=== PATIENT | male | born 1975 | race Caucasian/White ===

== ENCOUNTER 2016-07-05 11:41 | Emergency (ER) | payer SELFPAY ==
[~2016-07-05] VITALS: Ht 188 cm; Wt 127.0 kg
[~2016-07-05 11:41] MED LIST: BENZ200C25 PO; CEPH500C PO; DOXY100C2 PO; GBPN400C PO; HYDR1TAB PO; IBUP-15; IBUP800T26 PO; LEVE500T6 PO; LISI20TA PO; MECL25TA56 PO; PROP20TA5 PO; RISP3TAB3 PO; SERT25TA PO; SUMA100T3 PO
--- NOTE | 2016-07-05 12:14 | ED EENT ---
History of Present Illness General Chief Complaint: Eye Problems Stated Complaint: RIGHT EYE SWOLLEN Source: patient Exam Limitations: no limitations History of Present Illness Time seen by provider: 12:09 Initial Comments ER with right eye swelling and drainage and redness. This began about a week ago with an itchy red eye but no swelling or redness. They tried Visine without improvement. Yesterday morning he awakened with the eye matted shut. Vision is somewhat blurry in the eye. No other symptoms. He does not wear contacts or glasses. Timing/Duration: gradual Severity: moderate Location: eye (R) Associated Symptoms: denies symptoms Allergies and Home Medications Allergies Coded Allergies: NKANo Known Allergies (Unverified Allergy, Mild, 06/27/09) Home Medications Gabapentin 400 Mg Cap, 800 MG PO TID, (Reported) Ibuprofen 800 Mg Tablet, 800 MG PO Q8H PRN for PAIN, #20 Prescribed by: CRIS APONTE on 02/21/13 1848 Levetiracetam 500 Mg Tablet, 1 EACH PO BID, (Reported) Lisinopril 20 Mg Tablet, 20 MG PO, (Reported) Propranolol Hcl 20 Mg Tablet, 40 MG PO, (Reported) Risperidone 3 Mg Tablet, 2 MG PO HS, (Reported) Sertraline Hcl 25 Mg Tablet, 50 MG PO, (Reported) Review of Systems Constitutional: see HPI Eyes: See HPI, Blurred Vision, Drainage Ears: No Symptoms Reported Nose: no symptoms reported Mouth: no symptoms reported Throat: no symptoms reported Respiratory: no symptoms reported Cardiovascular: no symptoms reported Musculoskeletal: no symptoms reported Past Ttqredk-Jhmsei-Geicqs Hx Patient Social History Recent Foreign Travel: No Contact w/Someone Who Travel: No Immunizations Up To Date Tetanus Booster (TDap): Unknown Surgeries HX Surgeries: Yes (R EYE, surgery for facial trauma) Respiratory Hx Respiratory Disorders: No Cardiovascular Hx Cardiac Disorders: Yes Neurological Hx Neurological Disorders: Yes Genitourinary Hx Genitourinary Disorders: No Gastrointestinal Hx Gastrointestinal Disorders: No Musculoskeletal Hx Musculoskeletal Disorders: No Endocrine Hx Endocrine Disorders: No HEENT HX ENT Disorders: No Cancer Hx Cancer: No Psychosocial Hx Psychiatric Problems: Yes Behavioral Health Disorders: Bipolar, Personality Disorder Integumentary HX Skin/Integumentary Disorder: No Family Medical History Significant Family History: Heart Disease, Diabetes, Hypertension Visual Acuity : Eye Location: Right Vision Acuity Degree: 20/30 (right eye vision (the affected eye) better than left eye which is the unaffected eye.) Physical Exam General Appearance: WD/WN, no apparent distress, other (multiple sores all over both arms. Unable to sit still. Conversation is rambling. would have concerns of methamphetamine use.) Eyes: right eye conjunctival inflammation, right eye other (erythema and swelling of the upper and lower eyelids, erythema of the conjunctiva, scleral injection, no hypopyon. Purulent discharge noted.), left eye EOMI, left eye PERRL, left eye normal inspection Ears: bilateral ear TM normal, bilateral ear auricle normal, bilateral ear canal normal Neck: non-tender, full range of motion Respiratory: no respiratory distress, no accessory muscle use Neurologic/Psychiatric: alert, normal mood/affect, oriented x 3 Skin: normal color, warm/dry, other Progress/Results/Core Measures Results/Orders My Orders Orders - RUHS HA APRN Ceftriaxone Injection (Rocephin Injectio (07/05/16 12:15) Lidocaine 1% Injection (Xylocaine 1% Inj (07/05/16 12:15) Departure Impression Impression: Primary Impression: Conjunctivitis Qualified Codes: H10.31 - Unspecified acute conjunctivitis, right eye Disposition: 01 HOME, SELF-CARE Condition: Stable Departure-Patient Inst. Decision time for Depature: 12:11 Referrals: ERIKA ANDREWS MD (PCP/Family) Primary Care Physician TRISTA HONG OD Patient Instructions: Conjunctivitis ([place]) (DC) Add. Discharge Instructions: 1. Call Dr. Hong today to make an appointment to be seen either today or tomorrow for follow-up 2. Antibiotic eyedrops as directed 3. Return to ER for any worsening 4. All discharge instructions reviewed with patient and/or family. Voiced understanding. Scripts Erythromycin Base (Erythromycin Opthalmic Ointment) 1 Gm Oint...g. 0 OP Q6H, #1 TUBE 1/2 inch Q6 hours x5 days Prov: RUSH HA APRN 07/05/16 RUSH HA APRN July 05, 2016 12:14
[2016-07-05] MEDS ORDERED: LIDOCAINE 1% INJ 20 ML (XYLOCAINE) VIAL INJ ONE (12:15)
[2016-07-05] MEDS ORDERED: cefTRIAXone 1 GM (ROCEPHIN) VIAL IM ONE (12:15)
[2016-07-05] MEDS ORDERED: ERYT1OIN6 OP (12:16)
[2016-07-05 12:42] VITALS: BP 150/98
== END 2016-07-05 12:47 | disposition home or self-care (01) ==
LOC: EDUNIT# 11:41 → ER 11:43
DX: H10.31 Unspecified acute conjunctivitis, right eye (principal); Z79.899 Other long term (current) drug therapy
CPT/HCPCS: 96372; 99282

== ENCOUNTER 2018-03-16 12:48 | Emergency (ER) | payer SELFPAY, OTHER | END 2018-03-16 14:01 | disposition home or self-care (01) | LOC: ER 12:48 ==

== ENCOUNTER 2018-05-01 12:24 | Emergency (ER) | payer SELFPAY ==
[~2018-05-01] VITALS: Ht 188 cm; Wt 117.9 kg
[~2018-05-01 12:24] MED LIST changes: +ERYT1OIN6 OP; +ONDA4TAB11 PO
--- OUTSIDE RECORDS SUMMARY | 2018-05-01 12:31 | XMS REPORT ---
Author Author DARRYL ERIKA [facility] Address [address] [place] [address] Care Team Providers Care Bobbin Cleaner Name Role Phone DARRYLGER REYNAGAY Unavailable PROBLEMS Type Condition ICD9-CM Code FZV73-XY Code Onset Dates Condition Status SNOMED Code Problem Bipolar I disorder, most recent episode (or current) depressed F31.30 Active 27590247 Problem Lumbar canal stenosis M48.06 Active 42275057 Problem Benign essential hypertension I10 Active 8172880 Problem Other epilepsy without status epilepticus, not intractable G40.802 Active 871464279 Problem Hereditary and idiopathic peripheral neuropathy G60.9 Active 814992959 Problem Migraine without aura and without status migrainosus, not intractable G43.009 Active 788569984 Problem Raynauds disease without gangrene I73.00 Active 549213247 ALLERGIES No Information ENCOUNTERS Encounter Location Date Diagnosis [facility] [id number] [place] [address]15- 9853 Jan, Other epilepsy without status epilepticus, not intractable G40.802 [facility] [id number] [place] [address] 08766- 2187 Dec, Benign essential hypertension I10 ; Bipolar I disorder, most recent episode (or current) depressed F31.30 ; Other epilepsy without status epilepticus, not intractable G40.802 and Migraine without aura and without status migrainosus, not intractable G43.009 [facility] [id number] [place] [address] 05224- 4452 Aug, [facility] [id number] [place] [address] 03950- 6205 Aug, Benign essential hypertension I10 and Other epilepsy without status epilepticus, not intractable G40.802 [facility] [id number] [place] [address] 39169- 8750 Jul, Other epilepsy without status epilepticus, not intractable G40.802 [facility] [address] 26526- 8636 Mar, Benign essential hypertension I10 and Other epilepsy without status epilepticus, not intractable G40.802 [facility] [address] 92253- 9295 Feb, Benign essential hypertension I10 [facility] [facility] [address] 44115- 4509 Dec, Benign essential hypertension I10 [facility] [facility] [address] 54873- 8766 Sep, Lumbar canal stenosis M48.06 [facility] [address] 73633- 8109 Sep, [facility] [facility] [address] 53890- 2369 Sep, Elevated lymphocytes D72.820 [facility] [address] 73806- 8945 Sep, [place] [address] 57491- 5880 Aug, Bipolar I disorder, most recent episode (or current) depressed F31.30 [facility] [id number] [place] [address] 14374- 3879 Aug, Other epilepsy without status epilepticus, not intractable G40.802 ; Benign essential hypertension I10 ; Bipolar I disorder, most recent episode (or current) depressed F31.30 ; Hereditary and idiopathic peripheral neuropathy G60.9 ; Lumbar canal stenosis M48.06 and Elevated ALT measurement R74.0 [facility] [id number] [place] [address] 73193- 1936 Aug, [facility] [address] 27119- 8387 Aug, [place] [id number] [place] [address] 91677- 2181 May, Benign essential hypertension I10 [facility] [facility] [id number] [place] [address] 26428- 9661 Dec, Nondisplaced fracture of base of fifth metacarpal bone of right hand, initial encounter S62.346A [facility] [address] 17296- 2886 Dec, Numbness of right hand R20.0 ; Right hand pain M79.641 ; Right wrist pain M25.531 and Closed nondisplaced fracture of base of fifth metacarpal bone of right hand, initial encounter S62.346A [facility] [id number] [place] [address] 73175- 4226 Oct, [facility] [address] 46764- 8634 Sep, [facility] [address] 08646- 7313 Jul, Benign essential hypertension I10 ; Hyperlipidemia, unspecified hyperlipidemia type E78.5 and Elevated ALT measurement R74.0 [facility] [id number] [place] [address] 93085- 1574 Jul, Bipolar I disorder, most recent episode (or current) depressed F31.30 [facility] [id number] [place] [address] 41318- 1715 Jul, Benign essential hypertension I10 [facility] [id number] [place] [address] 08104- 0047 Jul, [facility] [address] 03635- 5123 June, Benign essential hypertension I10 ; Bipolar I disorder, most recent episode (or current) depressed F31.30 ; Lumbar canal stenosis M48.06 and Other epilepsy without status epilepticus, not intractable G40.802 [facility] [address] [facility] [id number], [place] [address]- 0370 Feb, [facility] [address] [facility] [id number], [place] [address]- 1931 Feb, [facility] [address] [facility] [id number], [place] [address]- 1454 Nov, [facility] [address] [facility] [id number] [place] [address] 42494- 1950 08 Oct, 2014 [facility] [address] [facility] [id number], [place] [address]- 5880 Oct, [facility] [address] [facility] [id number] [place] [address] 99065- 7282 Oct, [facility] [address], [place] [address]- 7303 Oct, Lumbar radiculopathy 724.4 ; Lumbar spinal stenosis 724.02 and Constipation 564.00 [facility] [address] [address]- 0491 Sep, [facility] [address] [address]- 0545 Sep, [facility] [address], [place] [address]- 6404 Aug, Lumbar radiculopathy 724.4 [facility] [address], [place] [address]- 1903 Aug, [facility] [id number] [address]- 5966 Aug, Hamstring strain 843.8 [facility] [address] [id number] [address]- 8397 Jul, [facility] [address] [address]- 0720 Jul, [facility] [id number] [address]- 3462 14 May, 2014 [facility] [place] [facility] [address] [id number] [place] [address]- 3701 13 May, 2014 [facility] [place] [facility] [address] [id number] [place] [address]- 6522 16 Apr, 2014 [facility] [place] [facility] [address] [id number] [place] [address]- 1960 16 Apr, 2014 [facility] [place] [facility] [address] [id number] [place] [address]- 6178 20 Mar, 2014 [facility] [place] [facility] [address] [id number] [place] [address]- 5949 20 Mar, 2014 [facility] [place] [facility] [address] [facility] [id number] [place] [address]- 0128 19 Mar, 2014 [facility] [place] [facility] [address] [facility] [id number] [place] [address]- 6751 Mar, 2014 [facility] [place] [facility] [address] [facility] [id number] [place] [address]- 7688 17 Mar, 2014 [facility] [place] [facility] [address] [facility] [id number] [place] [address]- 9992 Mar, 2014 [facility] [place] [facility] [address] [facility] [id number] [place] [address]- 9644 Mar, 2014 [facility] [place] [facility] [address] [facility] [id number] [place] [address]- 4126 Mar, 2014 [facility] [place] [facility] [address] [facility] [id number] [place] [address]- 2030 Mar, 2014 [facility] [place] [facility] [address] [facility] [id number] [place] [address]- 2115 Mar, 2014 [facility] [place] [facility] [address] [facility] [id number] [place] [address]- 8486 02 Mar, 2014 [facility] [place] [facility] [address] [facility] [id number], [place] [address]- 9760 Mar, [facility] [place] [facility] [address] [id number] [place] [address]- 0445 Feb, [facility] [place] [facility] [address] [id number] [place] [address]- 5141 Feb, [facility] [place] [facility] [address] [facility] [id number] [place] [address]- 5098 Feb, [facility] [place] [facility] [address] [id number] [place] [address]- 0882 Feb, [facility] [place] [facility] [address] [id number] [place] [address]- 6332 Feb, [facility] [place] [facility] [address] [id number] [place] [address]- 9398 Feb, [facility] [place] [facility] [address] [facility] [id number] [place] [address]- 8848 Jan, [facility] [place] [facility] [address] [id number] [place] [address]- 5957 Jan, [facility] [place] [facility] [address] [facility] [id number] [place] [address]- 8470 Jan, [facility] [place] [facility] [address] [facility] [id number] [place] [address]- 2499 Dec, [facility] [place] [facility] [address] [id number], [place] [address]- 5761 Dec, [facility] [place] [facility] [address] [id number], [place] [address]- 7655 Dec, [facility] [place] [facility] [address] [id number] [place] [address]- 4344 Dec, [facility] [place] [facility] [address] [id number] [place] [address]- 0943 Dec, [facility] [place] [facility] [address] [facility] [id number] [place] [address]- 3947 Dec, [facility] [place] [facility] [address] [id number] [place] [address]- 4898 Dec, [facility] [place] [facility] [address] [id number] [place] [address]- 8138 Dec, [facility] [place] [facility] [address] [id number] [place] [address]- 2512 Dec, [facility] [place] [facility] [address] [id number] [place] [address]- 6235 Dec, [facility] [place] [facility] [address] [id number] [place] [address]- 9816 Dec, [facility] [place] [facility] [address] [id number] [place] [address]- 1299 Dec, [facility] [place] [facility] [address] [id number] [place] [address]- 5391 Nov, [facility] [place] [facility] [address] [id number] [place] [address]- 8981 Nov, [facility] [place] [facility] [address] [id number] [place] [address]- 1838 Nov, [facility] [place] [facility] [address] [id number] [place] [address]- 7410 Nov, [facility] [place] [facility] [address] [id number] [place] [address]- 4922 16 Oct, 2013 [facility] [place] [facility] [address] [id number] [place] [address]- 9656 16 Oct, 2013 [facility] [place] [facility] [address] [id number] [place] [address]- 2547 16 Sep, 2013 [facility] [place] [facility] [address] [id number] [place] [address]- 2546 16 Sep, 2013 [facility] [place] [facility] [address] [id number] [place] [address]- 3980 05 Sep, 2013 [facility] [place] [facility] [address] [id number] [place] [address]- 1865 Oct, [facility] [place] [facility] [address] [id number] [place] [address]- 4387 Sep, [facility] [place] [facility] [address] [id number] [place] [address]- 9928 Sep, [facility] [place] [facility] [address] [id number] [place] [address]- 4768 Jul, [facility] [place] [facility] [address] [id number] [place] [address]- 3035 Jul, [facility] [place] [facility] [address] [id number] [place] [address]- 8525 Jul, [facility] [place] [facility] [address] [id number] [place] [address]- 1216 Jul, [facility] [place] [facility] [address] [id number] [place] [address]- 4887 Jul, [facility] [place] [facility] [address] [id number] [place] [address]- 8298 Jul, [facility] [place] [facility] [address] [id number] [place] [address]- 1878 Jul, [facility] [place] [facility] [address] [id number] [place] [address]- 9299 Jul, [facility] [place] [facility] [address] [id number] [place] [address]- 6185 Jul, [facility] [place] [facility] [address] [id number], [place] [address]- 1579 Jul, [facility] [place] [facility] [address] [id number] [place] [address]- 8013 June, [facility] [place] [facility] [address] [id number] [place] [address]- 4622 June, [facility] [place] [facility] [address] [id number] [place] [address]- 0738 June, [facility] [place] [facility] [address] [id number] [place] [address]- 8970 June, [facility] [address] [id number] [place] [address]- 7261 June, [facility] [place] [facility] [address] [id number] [place] [address]- 4719 June, [facility] [place] [facility] [address] [id number] [place] [address]- 9790 June, [facility] [place] [facility] [address] [id number] [place] [address]- 2994 June, [facility] [place] [facility] [address] [id number] [place] [address]- 7740 June, [facility] [place] [facility] [address] [id number] [place] [address]- 3367 June, [facility] [address] [id number] [place] [address]- 6356 June, [facility] [place] [facility] [address] [id number] [place] [address]- 1898 June, [facility] [place] [facility] [address] [id number] [place] [address]- 4311 June, [facility] [place] [facility] [address] [id number] [place] [address]- 7159 June, [facility] [place] [facility] [address] [id number] [place] [address]- 7552 May, [facility] [place] [facility] [address] [id number] [place] [address]- 1882 May, [facility] [place] [facility] [address] [id number] [place] [address]- 2136 May, [facility] [place] [facility] [address] [id number] [place] [address]- 1568 May, [facility] [place] [facility] [address] [id number] [place] [address]- 4907 May, [facility] [place] [facility] [address] [id number] [place] [address]- 8245 May, [facility] [place] [facility] [address] [id number] [place] [address]- 6971 May, [facility] [place] [facility] [address] [id number] [place] [address]- 7645 May, [facility] [place] [facility] [address] [id number] [place] [address]- 3949 May, [facility] [place] [facility] [address] [id number] [place] [address]- 9845 May, [facility] [place] [facility] [address] [id number] [place] [address]- 3639 May, [facility] [place] [facility] [address] [id number] [place] [address]- 5453 May, [facility] [place] [facility] [address] [id number] [place] [address]- 0362 May, [facility] [place] [facility] [address] [id number] [place] [address]- 6944 May, [facility] [place] [facility] [address] [id number] [place] [address]- 3740 May, [facility] [place] [facility] [address] [id number] [place] [address]- 0886 Apr, [facility] [place] [facility] [address] [id number] [place] [address]- 3336 Apr, [facility] [place] [facility] [address] [id number] [place] [address]- 6074 Apr, [facility] [place] [facility] [address] [id number] [place] [address]- 8134 Apr, [facility] [place] [facility] [address] [id number] [place] [address]- 7401 Apr, [facility] [place] [facility] [address] [id number] [place] [address]- 9426 Apr, [facility] [place] [facility] [address] [id number] [place] [address]- 5462 Apr, [facility] [place] [facility] [address] [id number] [place] [address]- 5450 Apr, [facility] [place] [facility] [address] [id number] [place] [address]- 5051 Apr, [facility] [place] [facility] [address] [id number] [place] [address]- 7826 Apr, [facility] [place] [facility] [address] [id number] [place] [address]- 4426 Apr, [facility] [place] [facility] [address] [id number] [place] [address]- 0733 Apr, [facility] [place] [facility] [address] [id number] [place] [address]- 4732 Apr, [facility] [place] [facility] [address] [id number] [place] [address]- 6265 Apr, [facility] [place] [facility] [address] [id number] [place] [address]- 1716 Apr, [facility] [place] [facility] [address] [id number] [place] [address]- 1217 Apr, [facility] [place] [facility] [address] [id number] [place] [address]- 2811 Apr, [facility] [place] [facility] [address] [id number] [place] [address]- 1556 Apr, [facility] [place] [facility] [address] [id number] [place] [address]- 7942 Mar, [facility] [place] [facility] [address] [id number] [place] [address]- 3413 Mar, [facility] [place] [facility] [address] [id number] [place] [address]- 5044 Mar, [facility] [place] [facility] [address] [id number] [place] [address]- 6869 24 Mar, 2013 [facility] [place] [facility] [address] [id number] [place] [address]- 3072 Mar, [facility] [place] [facility] [address] [id number] [place] [address]- 6746 Mar, [facility] [place] [facility] [address] [id number] [place] [address]- 2584 Mar, [facility] [place] [facility] [address] [id number] [place] [address]- 2425 Mar, [facility] [place] [facility] [address] [id number] [place] [address]- 5254 Mar, [facility] [place] [facility] [address] [id number] [place] [address]- 4562 Mar, [facility] [place] [facility] [address] [id number] [place] [address]- 8665 Feb, [facility] [place] [facility] [address] [id number] [place] [address]- 6866 Feb, [facility] [place] [facility] [address] [id number] [place] [address]- 6948 Feb, [facility] [place] [facility] [address] [id number] [place] [address]- 2417 Feb, [facility] [place] [facility] [address] [id number] [place] [address]- 6875 Feb, [facility] [place] [facility] [address] [id number] [place] [address]- 8237 Feb, [facility] [place] [facility] [address] [id number] [place] [address]- 9523 Feb, [facility] [place] [facility] [address] [id number] [place] [address]- 6770 14 Feb, 2013 [facility] [place] [facility] [address] [id number], [place] [address]- 3560 Feb, [facility] [place] [facility] [address] [id number] [place] [address]- 9016 Feb, [facility] [place] [facility] [address] [id number] [place] [address]- 3409 Feb, [facility] [place] [facility] [address] [id number] [place] [address]- 6628 Feb, [facility] [place] [facility] [address] [id number] [place] [address]- 5651 Feb, [facility] [place] [facility] [address] [id number] [place] [address]- 1369 Jan, [facility] [place] [facility] [address] [id number] [place] [address]- 1563 Jan, [facility] [place] [facility] [address] [id number] [place] [address]- 6619 Nov, [facility] [place] [facility] [address] [id number] [place] [address]- 6849 Nov, [facility] [place] [facility] [address] [id number] [place] [address] Nov, [facility] [place] [facility] [address] [id number] [place] [address] Nov, [facility] [place] [facility] [address] [id number], [place] [address] Nov, [facility] [place] [facility] [address] [id number], [place] [address] Oct, [facility] [place] [facility] [address] [id number] [place] [address] 26 Oct, 2012 [facility] [place] [facility] [address] [id number] [place] [address] 21 Oct, 2012 [facility] [place] [facility] [address] [id number] [place] [address] 11 Oct, 2012 [facility] [place] [facility] [address] [id number] [place] [address] Oct, [facility] [address] [id number] [place] [address] Sep, [facility] [address] [id number] [place] [address] Sep, [facility] [address] [id number] [place] [address] Sep, [facility] [address] [id number] [place] [address] Sep, [facility] [address] [id number] [place] [address] Sep, [facility] [address] [id number] [place] [address] Sep, [facility] [address] [id number] [place] [address] Sep, [facility] [address] [id number] [place] [address] Aug, [facility] [address] [id number] [place] [address] Aug, [facility] [address] [id number] [place] [address] Jul, [facility] [address] [id number] [place] [address] Jul, [facility] [address] [id number] [place] [address] June, [facility] [place] [facility] [address] [id number] [place] [address] June, [facility] [place] [facility] [address] [id number] [place] [address] June, [facility] [address] [id number] [place] [address] Apr, [facility] [address] [facility] [id number], [place] [address] Feb, [facility] [address] [id number], [place] [address] Feb, [facility] [address] [facility] [id number], [place] [address] Feb, [facility] [address] [id number], [place] [address] Feb, IMMUNIZATIONS No Known Immunizations SOCIAL HISTORY Never Assessed REASON FOR VISIT Neurology Referral PLAN OF CARE VITAL SIGNS MEDICATIONS Unknown Medications RESULTS No Results PROCEDURES No Known procedures INSTRUCTIONS MEDICATIONS ADMINISTERED No Known Medications MEDICAL (GENERAL) HISTORY Type Description Date Medical History epilepsy and recurrent seizures Medical History bipolar disorder Medical History neurologic disorder-neuropathy Surgical History back surgery 2013
--- OUTSIDE RECORDS SUMMARY | 2018-05-01 12:32 | XMS REPORT ---
Author Author DARRYL ERIKA [facility] Address [address] [place] [address] Care Team Providers Care Glue Maker Name Role Phone GER ANDREWSY Unavailable PROBLEMS Type Condition ICD9-CM Code [id number] Code Onset Dates Condition Status SNOMED Code Problem Bipolar I disorder, most recent episode (or current) depressed F31.30 Active 07825221 Problem Lumbar canal stenosis M48.06 Active 20647970 Problem Benign essential hypertension I10 Active 4239949 Problem Other epilepsy without status epilepticus, not intractable G40.802 Active 010755226 Problem Hereditary and idiopathic peripheral neuropathy G60.9 Active 571984231 Problem Migraine without aura and without status migrainosus, not intractable G43.009 Active 333444383 Problem Raynauds disease without gangrene I73.00 Active 876007555 ALLERGIES Substance Reaction Event Type Date Status Keppra Unknown Drug Allergy Dec, Active strawberries Unknown Non Drug Allergy Dec, Active flour Unknown Non Drug Allergy Dec, Active ENCOUNTERS Encounter Location Date Diagnosis [place] [id number] [place] [address]267- 5562 Dec, Benign essential hypertension I10 ; Bipolar I disorder, most recent episode (or current) depressed F31.30 ; Other epilepsy without status epilepticus, not intractable G40.802 and Migraine without aura and without status migrainosus, not intractable G43.009 [facility] [id number] [address] Aug, [place] [address] [place] [id number] [place] [address]78- 9980 Aug, Benign essential hypertension I10 and Other epilepsy without status epilepticus, not intractable G40.802 [facility] [address] [place] [address] [id number] [place] [address] 18274- 3973 Jul, Other epilepsy without status epilepticus, not intractable G40.802 [place] [address] [address]- [address] Mar, Benign essential hypertension I10 and Other epilepsy without status epilepticus, not intractable G40.802 [facility] [address] [address]- 3456 Feb, Benign essential hypertension I10 [place] [address] [address]- 6940 Dec, Benign essential hypertension I10 [place] [address] 068589- 0562 Sep, Lumbar canal stenosis M48.06 [place] [address] [address]207- 4558 Sep, [place] [address] 7[address]84- 5809 Sep, Elevated lymphocytes D72.820 [place] [address] 8[address]76- 3123 Sep, [place] [address] 63875- 5780 Aug, Bipolar I disorder, most recent episode (or current) depressed F31.30 [place] [address] [address]32- 6830 Aug, Other epilepsy without status epilepticus, not intractable G40.802 ; Benign essential hypertension I10 ; Bipolar I disorder, most recent episode (or current) depressed F31.30 ; Hereditary and idiopathic peripheral neuropathy G60.9 ; Lumbar canal stenosis M48.06 and Elevated ALT measurement R74.0 [facility] [address] [place] [id number] [place] [address] 03289- 3891 Aug, [place] [address] 6[address]56- 3801 Aug, [place] [id number] [place] [address] 01035- 0897 May, Benign essential hypertension I10 [place] [address] [place] [id number] [place] [address] 78792- 1447 Dec, Nondisplaced fracture of base of fifth metacarpal bone of right hand, initial encounter S62.346A [place] [address] [address]- 9585 Dec, Numbness of right hand R20.0 ; Right hand pain M79.641 ; Right wrist pain M25.531 and Closed nondisplaced fracture of base of fifth metacarpal bone of right hand, initial encounter S62.346A [place] [address] [place] [id number] [place] [address] 73720- 7291 Oct, [place] [address] 06637- 1879 Sep, [place] [address] [place] [id number] [place] [address] 92692- 5773 Jul, Benign essential hypertension I10 ; Hyperlipidemia, unspecified hyperlipidemia type E78.5 and Elevated ALT measurement R74.0 [place] [address] [place] [id number] [place] [address] 63606- 3044 Jul, Bipolar I disorder, most recent episode (or current) depressed F31.30 [place] [address] [place] [id number] [place] [address] 90167- 2621 Jul, Benign essential hypertension I10 [place] [address] [place] [id number] [place] [address] 29915- 1226 Jul, [place] [address] 32863- 9671 June, Benign essential hypertension I10 ; Bipolar I disorder, most recent episode (or current) depressed F31.30 ; Lumbar canal stenosis M48.06 and Other epilepsy without status epilepticus, not intractable G40.802 [place] [address] [place] [id number] [address] 8449 Feb, [facility] [address] [facility] [id number] [address] 9434 Feb, [facility] [address] [place] [id number] [address]- 1448 Nov, [facility] [id number] [place] [address] 07924- 5158 08 Oct, 2014 [facility] [address] [facility] [id number], [place] [address] 4927 Oct, [facility] [address] [place] [id number] [place] [address] 26700- 1873 Oct, [facility] [address], [place] [address]- 4769 Oct, Lumbar radiculopathy 724.4 ; Lumbar spinal stenosis 724.02 and Constipation 564.00 [facility] [address], [place] [address]- 7430 Sep, [facility] [address], [place] [address]- 3236 Sep, [facility] [address], [place] [address]- 1264 Aug, Lumbar radiculopathy 724.4 [facility] [address], [place] [address]- 0458 Aug, [facility] [address] [place] [id number] [address]- 9544 Aug, Hamstring strain 843.8 [facility] [address] [place] [id number] [address]- 6054 Jul, [facility] [address], [place] [address]- 4198 Jul, [facility] [address], [place] [address]- 7098 14 May, 2014 [facility] [place] [facility] [address] [id number] [place] [address]- 0812 13 May, 2014 [facility] [place] [facility] [address] [id number] [place] [address]- 2026 16 Apr, 2014 [facility] [place] [facility] [address] [facility] [id number] [place] [address]- 9126 16 Apr, 2014 [facility] [place] [facility] [address] [id number] [place] [address]- 4437 20 Mar, 2014 [facility] [place] [facility] [address] [id number] [place] [address]- 9605 20 Mar, 2014 [facility] [place] [facility] [address] [facility] [id number] [place] [address]- 8666 19 Mar, 2014 [facility] [place] [facility] [address] [facility] [id number] [place] [address]- 9162 Mar, 2014 [facility] [place] [facility] [address] [facility] [id number] [place] [address]- 1939 17 Mar, 2014 [facility] [place] [facility] [address] [facility] [id number] [place] [address]- 6879 17 Mar, 2014 [facility] [place] [facility] [address] [facility] [id number] [place] [address]- 6644 17 Mar, 2014 [facility] [place] [facility] [address] [facility] [id number] [place] [address]- 3627 17 Mar, 2014 [facility] [place] [facility] [address] [facility] [id number] [place] [address]- 8166 Mar, 2014 [facility] [place] [facility] [address] [facility] [id number] [place] [address]- 0190 Mar, 2014 [facility] [place] [facility] [address] [facility] [id number] [place] [address]- 8007 02 Mar, 2014 [facility] [place] [facility] [address] [facility] [id number] [place] [address]- 3947 Mar, [facility] [place] [facility] [address] [id number] [place] [address]- 6774 Feb, [facility] [place] [facility] [address] [id number] [place] [address]- 9209 Feb, [facility] [place] [facility] [address] [id number] [place] [address]- 5047 Feb, [facility] [place] [facility] [address] [id number] [place] [address]- 3474 Feb, [facility] [place] [facility] [address] [id number] [place] [address]- 4967 Feb, [facility] [place] [facility] [address] [id number] [place] [address]- 8040 Feb, [facility] [place] [facility] [address] [id number] [place] [address]- 3361 Jan, [facility] [place] [facility] [address] [id number] [place] [address]- 2179 Jan, [facility] [place] [facility] [address] [id number] [place] [address]- 9842 Jan, [facility] [place] [facility] [address] [id number] [place] [address]- 7859 Dec, [facility] [place] [facility] [address] [id number] [place] [address]- 6278 Dec, [facility] [place] [facility] [address] [id number], [place] [address]- 8645 Dec, [facility] [place] [facility] [address] [id number] [place] [address]- 9908 Dec, [facility] [place] [facility] [address] [id number] [place] [address]- 6864 Dec, [facility] [place] [facility] [address] [id number] [place] [address]- 2377 Dec, [facility] [place] [facility] [address] [id number] [place] [address]- 8058 Dec, [facility] [place] [facility] [address] [id number] [place] [address]- 5301 Dec, [facility] [place] [facility] [address] [id number] [place] [address]- 1968 Dec, [facility] [place] [facility] [address] [id number] [place] [address]- 3411 Dec, [facility] [place] [facility] [address] [id number] [place] [address]- 2557 Dec, [facility] [place] [facility] [address] [id number] [place] [address]- 7697 Dec, [facility] [place] [facility] [address] [id number] [place] [address]- 6740 Nov, [facility] [place] [facility] [address] [id number] [place] [address]- 9547 24 Nov, 2013 [facility] [place] [facility] [address] [id number] [place] [address]- 5603 Nov, [facility] [place] [facility] [address] [id number] [place] [address]- 2914 10 Nov, 2013 [facility] [place] [facility] [address] [facility] [id number] [place] [address]- 5651 16 Oct, 2013 [facility] [place] [facility] [address] [id number] [place] [address]- 8080 16 Sep, 2013 [facility] [place] [facility] [address] [id number] [place] [address]- 2541 16 Sep, 2013 [facility] [place] [facility] [address] [id number] [place] [address]- 8456 16 Sep, 2013 [facility] [place] [facility] [address] [id number] [place] [address]- 5817 05 Sep, 2013 [facility] [place] [facility] [address] [id number] [place] [address]- 8269 05 Sep, 2013 [facility] [place] [facility] [address] [id number] [place] [address]- 8234 Sep, [facility] [place] [facility] [address] [id number] [place] [address]- 7293 Sep, [facility] [place] [facility] [address] [id number] [place] [address]- 3309 Jul, [facility] [place] [facility] [address] [id number] [place] [address]- 3719 Jul, [facility] [place] [facility] [address] [id number] [place] [address]- 0761 Jul, [facility] [place] [facility] [address] [id number] [place] [address]- 4817 Jul, [facility] [place] [facility] [address] [id number] [place] [address]- 6346 Jul, [facility] [place] [facility] [address] [id number] [place] [address]- 7588 Jul, [facility] [place] [facility] [address] [id number] [place] [address]- 2770 Jul, [facility] [place] [facility] [address] [id number] [place] [address]- 9626 Jul, [facility] [place] [facility] [address] [id number] [place] [address]- 4288 Jul, [facility] [place] [facility] [address] [id number] [place] [address]- 6077 Jul, [facility] [place] [facility] [address] [id number] [place] [address]- 9860 June, [facility] [place] [facility] [address] [id number] [place] [address]- 3246 June, [facility] [place] [facility] [address] [id number] [place] [address]- 7575 June, [facility] [place] [facility] [address] [id number] [place] [address]- 2404 June, [facility] [place] [facility] [address] [id number] [place] [address]- 3858 June, [facility] [place] [facility] [address] [id number] [place] [address]- 8652 June, [facility] [place] [facility] [address] [id number] [place] [address]- 4921 June, [facility] [place] [facility] [address] [id number] [place] [address]- 2571 June, [facility] [place] [facility] [address] [id number] [place] [address]- 2974 June, [facility] [place] [facility] [address] [id number] [place] [address]- 2286 June, [facility] [place] [facility] [address] [id number] [place] [address]- 5320 June, [facility] [place] [facility] [address] [id number] [place] [address]- 2307 June, [facility] [place] [facility] [address] [id number] [place] [address]- 7167 June, [facility] [place] [facility] [address] [id number] [place] [address]- 7846 June, [facility] [place] [facility] [address] [id number] [place] [address]- 8135 May, [facility] [place] [facility] [address] [id number] [place] [address]- 2636 May, [facility] [place] [facility] [address] [id number] [place] [address]- 3617 May, [facility] [place] [facility] [address] [id number] [place] [address]- 7649 May, [facility] [place] [facility] [address] [id number] [place] [address]- 4935 May, [facility] [place] [facility] [address] [id number] [place] [address]- 1995 May, [facility] [address] [id number] [place] [address]- 6118 May, [facility] [place] [facility] [address] [id number] [place] [address]- 2176 May, [facility] [address] [id number] [place] [address]- 7346 May, [facility] [place] [facility] [address] [id number] [place] [address]- 1339 May, [facility] [address] [id number] [place] [address]- 6566 May, [facility] [address] [id number] [place] [address]- 3036 May, [facility] [address] [id number] [place] [address]- 1723 May, [facility] [address] [id number] [place] [address]- 0690 May, [facility] [place] [facility] [address] [id number] [place] [address]- 4807 May, [facility] [address] [id number] [place] [address]- 1781 Apr, [facility] [place] [facility] [address] [id number] [place] [address]- 3470 Apr, [facility] [place] [facility] [address] [id number] [place] [address]- 9108 Apr, [facility] [place] [facility] [address] [id number] [place] [address]- 5529 Apr, [facility] [place] [facility] [address] [id number] [place] [address]- 7100 Apr, [facility] [place] [facility] [address] [id number] [place] [address]- 5036 Apr, [facility] [place] [facility] [address] [id number] [place] [address]- 2387 Apr, [facility] [place] [facility] [address] [id number] [place] [address]- 5614 Apr, [facility] [place] [facility] [address] [id number] [place] [address]- 7391 Apr, [facility] [place] [facility] [address] [id number] [place] [address]- 7568 Apr, [facility] [place] [facility] [address] [id number] [place] [address]- 1738 Apr, [facility] [place] [facility] [address] [id number] [place] [address]- 3119 Apr, [facility] [place] [facility] [address] [id number] [place] [address]- 6984 Apr, [facility] [place] [facility] [address] [id number] [place] [address]- 8901 Apr, [facility] [place] [facility] [address] [id number] [place] [address]- 8935 Apr, [facility] [place] [facility] [address] [id number] [place] [address]- 6101 Apr, [facility] [place] [facility] [address] [id number] [place] [address]- 8502 Apr, [facility] [place] [facility] [address] [id number] [place] [address]- 9202 Apr, [facility] [place] [facility] [address] [id number] [place] [address]- 2801 Mar, [facility] [place] [facility] [address] [id number] [place] [address]- 1632 Mar, [facility] [place] [facility] [address] [id number] [place] [address]- 0801 Mar, [facility] [place] [facility] [address] [id number] [place] [address]- 2119 24 Mar, 2013 [facility] [place] [facility] [address] [id number] [place] [address]- 6496 Mar, [facility] [place] [facility] [address] [id number] [place] [address]- 9686 Mar, [facility] [place] [facility] [address] [id number] [place] [address]- 2266 Mar, [facility] [place] [facility] [address] [id number] [place] [address]- 8977 Mar, [facility] [place] [facility] [address] [id number] [place] [address]- 1006 Mar, [facility] [place] [facility] [address] [id number] [place] [address]- 7821 Mar, [facility] [place] [facility] [address] [id number] [place] [address]- 1940 Feb, [facility] [place] [facility] [address] [id number] [place] [address]- 9344 Feb, [facility] [place] [facility] [address] [id number] [place] [address]- 7363 Feb, [facility] [place] [facility] [address] [id number] [place] [address]- 7172 Feb, [facility] [place] [facility] [address] [id number] [place] [address]- 6852 Feb, [facility] [place] [facility] [address] [id number] [place] [address]- 3726 16 Feb, 2013 [facility] [place] [facility] [address] [id number] [place] [address]- 8795 Feb, [facility] [place] [facility] [address] [id number] [place] [address]- 4070 14 Feb, 2013 [facility] [place] [facility] [address] [id number] [place] [address]- 3011 Feb, [facility] [place] [facility] [address] [id number] [place] [address]- 6319 Feb, [facility] [place] [facility] [address] [id number] [place] [address]- 1858 Feb, [facility] [place] [facility] [address] [id number] [place] [address]- 6226 Feb, [facility] [place] [facility] [address] [id number] [place] [address]- 4312 Feb, [facility] [place] [facility] [address] [id number] [place] [address]- 0921 Jan, [facility] [place] [facility] [address] [id number] [place] [address]- 7756 Jan, [facility] [place] [facility] [address] [id number] [place] [address]- 1473 Nov, [facility] [place] [facility] [address] [id number] [place] [address]- 3885 Nov, [facility] [place] [facility] [address] [id number] [place] [address]- 4890 Nov, [facility] [place] [facility] [address] [id number], [place] [address]- 4824 Nov, [facility] [place] [facility] [address] [id number], [place] [address]- 9438 Nov, [facility] [place] [facility] [address] [id number], [place] [address]- 3971 Oct, [facility] [place] [facility] [address] [id number] [place] [address]- 3084 26 Oct, 2012 [facility] [place] [facility] [address] [id number] [place] [address]- 3174 21 Oct, 2012 [facility] [place] [facility] [address] [id number], [place] [address] 11 Oct, 2012 [facility] [place] [facility] [address] [id number], [place] [address] Oct, [facility] [address] [id number] [place] [address] Sep, [facility] [place] [facility] [address] [id number] [place] [address] Sep, [facility] [place] [facility] [address] [id number] [place] [address] Sep, [facility] [place] [facility] [address] [id number] [place] [address] Sep, [facility] [place] [facility] [address] [id number] [place] [address] Sep, [facility] [place] [facility] [address] [id number] [place] [address] Sep, [facility] [address] [id number] [place] [address] Sep, [facility] [place] [facility] [address] [id number] [place] [address] Aug, [facility] [place] [facility] [address] [id number] [place] [address] Aug, [facility] [place] [facility] [address] [id number] [place] [address] Jul, [facility] [place] [facility] [address] [id number] [place] [address] Jul, [facility] [place] [facility] [address] [id number] [place] [address] June, [facility] [place] [facility] [address] [id number] [place] [address] June, [facility] [place] [facility] [address] [id number] [place] [address] June, [facility] [place] [facility] [address] [id number] [place] [address] Apr, [facility] [place] [facility] [address] [facility] [id number] [place] [address] Feb, [facility] [address] [facility] [id number][place] [address] Feb, [facility] [address] [facility] [id number][place] [address] Feb, [facility] [address] [facility] [id number][place] [address] [address] Feb, IMMUNIZATIONS No Known Immunizations SOCIAL HISTORY Never Assessed REASON FOR VISIT Blood pressure--Johnathan Pt had moved to [place] and was in treatment for a while. has been out of meds for few months. Still has Lisinopril, but that dose was decreased to 20mg . Also, has been out of propranolol and gabapentin PLAN OF CARE Activity Details Follow Up 4 Weeks Reason:HTN VITAL SIGNS Height 75 in 2018-01-16 Weight 263.8 lbs 2018-01-16 Temperature 98.2 degrees Fahrenheit 2018-01-16 Heart Rate 84 bpm 2018-01-16 Respiratory Rate 20 2018-01-16 BMI 32.97 kg/m2 2018-01-16 Blood pressure systolic 152 mmHg 2018-01-16 Blood pressure diastolic 100 mmHg 2018-01-16 MEDICATIONS Medication Instructions Dosage Frequency Start Date End Date Duration Status Imitrex 100 mg 1 tablet by Oral route 1 time per day and repeat once more after 2 hours if headache recurs PRN May, Not-Taking Gabapentin 800 MG Orally Three times a day 1 tablet 8h 30 days Active Lisinopril 20 mg Orally Once a day 1 tablet 24h 90 days Active Zoloft 100 mg Orally Once a day 1.5 tablets 24h 90 days Active Propranolol HCl 40 mg Orally 2 times a day 1 tablet 12h 90 days Active RESULTS No Results PROCEDURES No Known procedures INSTRUCTIONS MEDICATIONS ADMINISTERED No Known Medications MEDICAL (GENERAL) HISTORY Type Description Date Medical History epilepsy and recurrent seizures Medical History bipolar disorder Medical History neurologic disorder-neuropathy Surgical History back surgery 2013
--- OUTSIDE RECORDS SUMMARY | 2018-05-01 12:32 | XMS REPORT ---
Author Author DARRYL ERIKA [facility] Address [address] [place] [address] Care Team Providers Care Microscopist Name Role Phone ERIKA ANDREWS Unavailable PROBLEMS Type Condition ICD9-CM Code ENP51-KK Code Onset Dates Condition Status SNOMED Code Problem Bipolar I disorder, most recent episode (or current) depressed F31.30 Active 20429515 Problem Lumbar canal stenosis M48.06 Active 55581838 Problem Benign essential hypertension I10 Active 7462897 Problem Other epilepsy without status epilepticus, not intractable G40.802 Active 202357625 Problem Hereditary and idiopathic peripheral neuropathy G60.9 Active 707882214 Problem Migraine without aura and without status migrainosus, not intractable G43.009 Active 720391433 Problem Raynauds disease without gangrene I73.00 Active 737170994 ALLERGIES Substance Reaction Event Type Date Status Keppra Unknown Drug Allergy Aug, Active strawberries Unknown Non Drug Allergy Aug, Active flour Unknown Non Drug Allergy Aug, Active ENCOUNTERS Encounter Location Date Diagnosis [place] [id number] [place] [address] 12764- 2979 Mar, Benign essential hypertension I10 and Other epilepsy without status epilepticus, not intractable G40.802 [facility] [id number] [place] [address] 70647- 0013 Feb, Benign essential hypertension I10 [facility] [id number] [place] [address] 29842- 3623 Dec, Benign essential hypertension I10 [facility] [id number] [place] [address] 64868- 7159 Sep, Lumbar canal stenosis M48.06 [facility] [id number] [place] [address] 91837- 2450 Sep, [place] [id number] [place] [address] 32654- 6897 Sep, Elevated lymphocytes D72.820 [place] [id number] [place] [address] 48428- 9815 Sep, [place] [id number] [place] [address] 60762- 6279 Aug, Bipolar I disorder, most recent episode (or current) depressed F31.30 [place] [id number] [place] [address] 42148- 2819 Aug, Other epilepsy without status epilepticus, not intractable G40.802 ; Benign essential hypertension I10 ; Bipolar I disorder, most recent episode (or current) depressed F31.30 ; Hereditary and idiopathic peripheral neuropathy G60.9 ; Elevated ALT measurement R74.0 and Lumbar canal stenosis M48.06 [place] [id number] [place] [address] 41948- 7409 Aug, [place] [id number] [place] [address] 61533- 4637 Aug, [place] [id number] [place] [address] 69039- 6685 May, Benign essential hypertension I10 [place] [id number] [place] [address] 18594- 4742 Dec, Nondisplaced fracture of base of fifth metacarpal bone of right hand, initial encounter S62.346A [place] [id number] [place] [address] 87072- 1460 Dec, Numbness of right hand R20.0 ; Right hand pain M79.641 ; Right wrist pain M25.531 and Closed nondisplaced fracture of base of fifth metacarpal bone of right hand, initial encounter S62.346A [place] [id number] [place] [address] 67086- 1747 Oct, [place] [id number] [place] [address] 76947- 9834 Sep, [facility] [id number] [place] [address] 45550- 2296 Jul, Benign essential hypertension I10 ; Hyperlipidemia, unspecified hyperlipidemia type E78.5 and Elevated ALT measurement R74.0 [facility] [id number] [place] [address] 44644- 6890 Jul, Bipolar I disorder, most recent episode (or current) depressed F31.30 [facility] [id number] [place] [address] 51370- 5284 Jul, Benign essential hypertension I10 [facility] [address] 81339- 7349 Jul, [facility] [id number] [place] [address] 64268- 9499 June, Benign essential hypertension I10 ; Bipolar I disorder, most recent episode (or current) depressed F31.30 ; Lumbar canal stenosis M48.06 and Other epilepsy without status epilepticus, not intractable G40.802 [facility] [id number] [place] [address] 98031- 3446 Feb, [facility] [id number] [place] [address] 65560- 4383 Feb, [facility] [id number] [place] [address] 11651- 1631 Nov, [facility] [id number] [place] [address] 52812- 4361 Oct, [facility] [id number] [place] [address] 97343- 3526 Oct, [facility] [id number] [place] [address] 22591- 0638 Oct, [facility] [id number] [place] [address] 70086- 1316 Oct, Lumbar radiculopathy 724.4 ; Lumbar spinal stenosis 724.02 and Constipation 564.00 [facility] [address] [id number] [address]- 4637 Sep, [facility] [address] [facility] [id number] [address]- 3016 Sep, [facility] [address] [facility] [id number] [address]- 5313 Aug, Lumbar radiculopathy 724.4 [facility] [address] [id number] [address]- 8683 Aug, [facility] [address] [facility] [id number] [place] [address] 05885- 2309 Aug, Hamstring strain 843.8 [facility] [address] [id number] [address]- 2187 Jul, [facility] [address] [facility] [id number] [address]- 5500 Jul, [facility] [address] [facility] [id number] [place] [address]- 3503 May, [facility] [address] [facility] [id number] [address]- 9837 May, [facility] [address] [facility] [id number] [address]- 7684 Apr, [facility] [address] [facility] [id number] [address]- 9101 Apr, [facility] [address] [facility] [id number] [address]- 2332 Mar, [facility] [address] [facility] [id number] [place] 9777 Mar, [facility] [address] [facility] [id number] [place] [address]- 1356 Mar, [facility] [address] [facility] [id number] [place] [address]- 9815 Mar, 2014 [facility] [place] [facility] [address] [id number] [place] [address] 2546 Mar, 2014 [facility] [place] [facility] [address] [id number] [place] [address] 2546 Mar, 2014 [facility] [place] [facility] [address] [id number] [place] [address] 2546 Mar, 2014 [facility] [place] [facility] [address] [id number] [place] [address]- 254 Mar, 2014 [facility] [place] [facility] [address] [id number] [place] [address]- 3916 Mar, 2014 [facility] [place] [facility] [address] [facility] [id number] [place] [address]- 2549 Mar, 2014 [facility] [place] [facility] [address] [id number] [place] [address]- 2547 Mar, 2014 [facility] [place] [facility] [address] [id number] [place] [address]- 5011 Mar, [facility] [place] [facility] [address] [facility] [id number] [place] [address]- 7970 Feb, [facility] [place] [facility] [address] [facility] [id number] [place] [address]- 0609 Feb, [facility] [place] [facility] [address] [facility] [id number] [place] [address]- 2546 Feb, [facility] [place] [facility] [address] [id number] [place] [address] 2541 Feb, [facility] [place] [facility] [address] [id number] [place] [address] 2546 Feb, [facility] [place] [facility] [address] [facility] [id number] [place] [address] 2541 Feb, [facility] [place] [facility] [address] [id number] [address]- 3789 Jan, [facility] [place] [facility] [address] [id number] [place] [address]- 5390 Jan, [facility] [place] [facility] [address] [id number] [place] [address]- 5243 Jan, [facility] [place] [facility] [address] [facility] [id number] [place] [address]- 2852 Dec, [facility] [place] [facility] [address] [id number] [place] [address]- 4420 Dec, [facility] [place] [facility] [address] [id number] [place] [address]- 4903 Dec, [facility] [place] [facility] [address] [id number] [place] [address]- 3258 Dec, [facility] [place] [facility] [address] [id number] [place] [address]- 7550 Dec, [facility] [place] [facility] [address] [id number] [place] [address]- 1993 Dec, [facility] [place] [facility] [address] [id number] [place] [address]- 2864 Dec, [facility] [place] [facility] [address] [id number] [place] [address]- 9434 Dec, [facility] [place] [facility] [address] [id number] [place] [address]- 6475 Dec, [facility] [place] [facility] [address] [id number] [address]- 0756 Dec, [facility] [place] [facility] [address] [id number] [place] [address]- 3687 Dec, [facility] [place] [facility] [address] [id number] [address]- 7185 Dec, [facility] [place] [facility] [address] [id number] [address]- 3652 Nov, [facility] [place] [facility] [address] [id number] [place] [address]- 5974 Nov, [facility] [place] [facility] [address] [id number] [place] [address]- 7370 Nov, [facility] [place] [facility] [address] [id number] [place] [address]- 9685 Nov, [facility] [place] [facility] [address] [id number] [place] [address]- 6283 16 Oct, 2013 [facility] [place] [facility] [address] [id number] [place] [address] 254 16 Oct, 2013 [facility] [place] [facility] [address] [id number] [place] [address]- 7140 16 Oct, 2013 [facility] [place] [facility] [address] [id number] [place] [address]- 9847 16 Oct, 2013 [facility] [place] [facility] [address] [id number] [place] [address]- 6315 05 Oct, 2013 [facility] [place] [facility] [address] [id number] [place] [address]- 7663 05 Oct, 2013 [facility] [place] [facility] [address] [id number] [place] [address]- 3927 Sep, [facility] [place] [facility] [address] [id number] [place] [address]- 1046 Sep, [facility] [place] [facility] [address] [id number] [place] [address]- 7208 Jul, [facility] [place] [facility] [address] [id number] [place] [address]- 9607 Jul, [facility] [place] [facility] [address] [id number] [place] [address]- 7407 Jul, [facility] [place] [facility] [address] [id number] [place] [address]- 7388 Jul, [facility] [place] [facility] [address] [id number] [place] [address]- 5609 Jul, [facility] [place] [facility] [address] [id number] [place] [address]- 7238 Jul, [facility] [place] [facility] [address] [id number] [place] [address]- 8355 Jul, [facility] [place] [facility] [address] [id number] [place] [address]- 8661 Jul, [facility] [place] [facility] [address] [id number] [place] [address]- 6927 Jul, [facility] [place] [facility] [address] [id number] [place] [address]- 6901 Jul, [facility] [place] [facility] [address] [id number] [place] [address]- 8088 June, [facility] [place] [facility] [address] [id number] [place] [address]- 0011 June, [facility] [place] [facility] [address] [id number] [place] [address]- 9911 June, [facility] [place] [facility] [address] [id number] [place] [address]- 1750 June, [facility] [place] [facility] [address] [id number] [place] [address]- 7540 June, [facility] [place] [facility] [address] [id number] [place] [address]- 7585 June, [facility] [place] [facility] [address] [id number] [place] [address]- 3490 June, [facility] [place] [facility] [address] [id number] [place] [address]- 0832 June, [facility] [place] [facility] [address] [id number] [place] [address]- 9376 June, [facility] [place] [facility] [address] [id number] [place] [address]- 0598 June, [facility] [place] [facility] [address] [id number] [place] [address]- 8797 June, [facility] [place] [facility] [address] [id number] [place] [address]- 9111 June, [facility] [place] [facility] [address] [id number] [place] [address]- 3096 June, [facility] [place] [facility] [address] [id number] [place] [address]- 1570 June, [facility] [place] [facility] [address] [id number] [place] [address]- 4384 May, [facility] [place] [facility] [address] [id number] [place] [address]- 5919 May, [facility] [place] [facility] [address] [id number] [place] [address]- 0426 May, [facility] [place] [facility] [address] [id number] [place] [address]- 6789 May, [facility] [place] [facility] [address] [id number] [place] [address]- 7939 May, [facility] [place] [facility] [address] [id number] [place] [address]- 3469 May, [facility] [place] [facility] [address] [id number] [place] [address]- 7961 May, [facility] [place] [facility] [address] [id number] [place] [address]- 3314 May, [facility] [place] [facility] [address] [id number] [place] [address]- 4138 May, [facility] [place] [facility] [address] [id number] [place] [address]- 2958 May, [facility] [place] [facility] [address] [id number] [place] [address]- 6197 May, [facility] [place] [facility] [address] [id number] [place] [address]- 0595 May, [facility] [place] [facility] [address] [id number] [place] [address]- 0652 May, [facility] [address] [id number] [place] [address]- 6266 May, [facility] [place] [facility] [address] [id number] [place] [address]- 7806 May, [facility] [address] [id number] [place] [address]- 2504 Apr, [facility] [place] [facility] [address] [id number] [place] [address]- 5051 Apr, [facility] [place] [facility] [address] [id number] [place] [address]- 9452 Apr, [facility] [place] [facility] [address] [id number] [place] [address]- 3048 Apr, [facility] [place] [facility] [address] [id number] [place] [address]- 3647 Apr, [facility] [address] [id number] [place] [address]- 5941 Apr, [facility] [place] [facility] [address] [id number] [place] [address]- 2352 Apr, [facility] [address] [id number] [place] [address]- 2669 Apr, [facility] [place] [facility] [address] [id number] [place] [address]- 0134 Apr, [facility] [place] [facility] [address] [id number] [place] [address]- 0363 Apr, [facility] [place] [facility] [address] [id number] [place] [address]- 8849 Apr, [facility] [place] [facility] [address] [id number] [place] [address]- 7636 Apr, [facility] [place] [facility] [address] [id number] [place] [address]- 8514 Apr, [facility] [place] [facility] [address] [id number] [place] [address]- 1517 Apr, [facility] [place] [facility] [address] [id number] [place] [address]- 8985 Apr, [facility] [place] [facility] [address] [id number] [place] [address]- 0604 Apr, [facility] [place] [facility] [address] [id number] [place] [address]- 3607 Apr, [facility] [place] [facility] [address] [id number] [place] [address]- 1671 Apr, [facility] [place] [facility] [address] [id number] [place] [address]- 0736 Mar, [facility] [place] [facility] [address] [facility] [id number] [place] [address]- 0678 Mar, [facility] [place] [facility] [address] [id number] [place] [address]- 1737 Mar, [facility] [place] [facility] [address] [id number] [place] [address]- 9716 Mar, [facility] [place] [facility] [address] [facility] [id number] [place] [address]- 7003 Mar, [facility] [place] [facility] [address] [facility] [id number] [place] [address]- 3073 Mar, [facility] [place] [facility] [address] [id number] [place] [address]- 7040 Mar, [facility] [place] [facility] [address] [id number] [place] [address]- 4778 Mar, [facility] [place] [facility] [address] [facility] [id number] [place] [address]- 9232 Mar, [facility] [place] [facility] [address] [facility] [id number] [place] [address]- 4196 Mar, [facility] [place] [facility] [address] [id number] [place] [address]- 1603 Feb, [facility] [place] [facility] [address] [id number] [place] [address]- 4710 Feb, [facility] [place] [facility] [address] [id number] [place] [address]- 0727 Feb, [facility] [place] [facility] [address] [id number] [place] [address]- 4608 Feb, [facility] [place] [facility] [address] [id number] [place] [address]- 2013 Feb, [facility] [place] [facility] [address] [id number] [place] [address]- 2922 Feb, [facility] [place] [facility] [address] [id number] [place] [address]- 8960 Feb, [facility] [place] [facility] [address] [id number] [place] [address]- 0080 Feb, [facility] [place] [facility] [address] [id number] [place] [address]- 0781 Feb, [facility] [place] [facility] [address] [id number] [place] [address]- 8652 Feb, [facility] [place] [facility] [address] [id number] [place] [address]- 8558 Feb, [facility] [place] [facility] [address] [id number] [place] [address]- 1158 Feb, [facility] [place] [facility] [address] [id number] [place] [address]- 0174 Feb, [facility] [place] [facility] [address] [id number] [place] [address]- 4196 Jan, [facility] [place] [facility] [address] [id number] [place] [address] Jan, [facility] [place] [facility] [address] [id number] [place] [address] Nov, [facility] [place] [facility] [address] [id number] [place] [address] Nov, [facility] [place] [facility] [address] [id number] [place] [address] Nov, [facility] [place] [facility] [address] [id number] [place] [address] Nov, [facility] [place] [facility] [address] [id number] [place] [address] Nov, [facility] [place] [facility] [address] [id number] [place] [address] Oct, [facility] [place] [facility] [address] [id number] [place] [address] Oct, [facility] [place] [facility] [address] [id number] [place] [address] Oct, [facility] [place] [facility] [address] [id number] [place] [address] Oct, [facility] [place] [facility] [address] [id number] [place] [address] Oct, [facility] [place] [facility] [address] [id number] [place] [address] Sep, [facility] [place] [facility] [address] [id number] [address] Sep, [facility] [facility] [address] [id number] [address] Sep, [facility] [place] [facility] [address] [id number] [place] [address] Sep, [facility] [place] [facility] [address] [id number] [address] Sep, [facility] [place] [facility] [address] [id number] [place] [address] Sep, [facility] [place] [facility] [address] [id number] [address] Sep, [facility] [address] [id number] [address] Aug, [facility] [address] [id number] [address] Aug, [facility] [id number] [address] Jul, [facility] [id number] [address] Jul, [facility] [id number] [address] June, [facility] [id number] [address] June, [facility] [id number] [address] June, [facility] [id number] [address] Apr, [facility] [id number] [address] Feb, [facility] [address] [id number] [address] Feb, [facility] [address] [id number] [address] Feb, [facility] [address] [id number] [address] Feb, IMMUNIZATIONS No Known Immunizations SOCIAL HISTORY Never Assessed REASON FOR VISIT Hypertension fu -- jesu warner, patient states he is having back pain and shoulder pain PLAN OF CARE Activity Details Follow Up 3 Months Reason:HTN/Seizures VITAL SIGNS Height 75 in 2016-09-16 Weight 265.0 lbs 2016-09-16 Temperature 98.0 degrees Fahrenheit 2016-09-16 Heart Rate 78 bpm 2016-09-16 Respiratory Rate 20 2016-09-16 BMI 33.12 kg/m2 2016-09-16 Blood pressure systolic 138 mmHg 2016-09-16 Blood pressure diastolic 78 mmHg 2016-09-16 MEDICATIONS Medication Instructions Dosage Frequency Start Date End Date Duration Status Gabapentin 800 MG Orally Three times a day 1 tablet 8h Active Risperidone 3 MG Orally Once a day 1 tablet 24h Active Lisinopril 40 mg Orally Once a day 1 tablet 24h Active Propranolol HCl 80 MG Orally 2 times a day 0.5 tablet 12h Active RESULTS Name Result Date Reference Range CBC 2016-09-16 WBC 9.1 3.4-10.8 RBC 4.73 4.14-5.80 Hemoglobin 14.4 12.6-17.7 Hematocrit 43.0 37.5-51.0 MCV 91 79-97 MCH 30.4 26.6-33.0 MCHC 33.5 31.5-35.7 RDW 13.4 12.3-15.4 Platelets 338 150-379 Neutrophils 56 Lymphs 35 Monocytes 6 Eos 2 Basos 1 Neutrophils (Absolute) 5.2 1.4-7.0 Lymphs (Absolute) 3.2 0.7-3.1 Monocytes(Absolute) 0.5 0.1-0.9 Eos (Absolute) 0.2 0.0-0.4 Baso (Absolute) 0.1 0.0-0.2 Immature Granulocytes 0 Immature Grans (Abs) 0.0 0.0-0.1 CMP 2016-09-16 Glucose, Serum 106 65-99 BUN 18 6-24 Creatinine, Serum 1.14 0.76-1.27 eGFR If NonAfricn Am 80 >59 eGFR If Africn Am 92 >59 BUN/Creatinine Ratio 16 9-20 Sodium, Serum 140 134-144 Potassium, Serum 4.6 3.5-5.2 Chloride, Serum 99 96-106 Carbon Dioxide, Total 21 18-29 Calcium, Serum 9.4 8.7-10.2 Protein, Total, Serum 7.0 6.0-8.5 Albumin, Serum 4.4 3.5-5.5 Globulin, Total 2.6 1.5-4.5 A/G Ratio 1.7 1.2-2.2 Bilirubin, Total 0.7 0.0-1.2 Alkaline Phosphatase, S 107 39-117 AST (SGOT) 17 0-40 ALT (SGPT) 22 0-44 HEPATITIS PROFILE 2016-09-16 Hep A Ab, IgM Negative Negative HBsAg Screen Negative Negative Hep B Core Ab, IgM Negative Negative Hep C Virus Ab <0.1 0.0-0.9 PROCEDURES Procedure Date Ordered Result Body Site ACUTE HEPATITIS PANEL September 16, 2016 COMPREHEN METABOLIC PANEL September 16, 2016 COMPLETE CBC W/AUTO DIFF WBC September 16, 2016 VENIPUNCT, ROUTINE* September 16, 2016 INSTRUCTIONS MEDICATIONS ADMINISTERED No Known Medications MEDICAL (GENERAL) HISTORY Type Description Date Medical History epilepsy and recurrent seizures Medical History bipolar disorder Medical History neurologic disorder-neuropathy Surgical History back surgery 2013
--- OUTSIDE RECORDS SUMMARY | 2018-05-01 12:33 | XMS REPORT ---
Author Author DARRYL ERIKA [facility] Address [address] [place] [address] Care Team Providers Care Forms Designer Name Role Phone ERIKA ANDREWS Unavailable PROBLEMS Type Condition ICD9-CM Code NMO56-WG Code Onset Dates Condition Status SNOMED Code Problem Bipolar I disorder, most recent episode (or current) depressed F31.30 Active 18685480 Problem Lumbar canal stenosis M48.06 Active 64676360 Problem Benign essential hypertension I10 Active 2452797 Problem Other epilepsy without status epilepticus, not intractable G40.802 Active 653171328 Problem Hereditary and idiopathic peripheral neuropathy G60.9 Active 744907053 Problem Migraine without aura and without status migrainosus, not intractable G43.009 Active 033786068 Problem Raynauds disease without gangrene I73.00 Active 140621097 ALLERGIES No Information ENCOUNTERS Encounter Location Date Diagnosis [place] [id number] [address] Mar, Benign essential hypertension I10 and Other epilepsy without status epilepticus, not intractable G40.802 [facility] [id number] [place] [address] 30062- 3811 Feb, Benign essential hypertension I10 [facility] [id number] [place] [address] 77660- 8465 Dec, Benign essential hypertension I10 [facility] [id number] [place] [address] 27166- 6739 Sep, Lumbar canal stenosis M48.06 [facility] [address] [address]- [address]60 Sep, [facility] [id number] [place] [address] 78098- 5042 Sep, Elevated lymphocytes D72.820 [place] [id number] [place] [address] 92075- 5307 Sep, [place] [id number] [place] [address] 95744- 1593 Aug, Bipolar I disorder, most recent episode (or current) depressed F31.30 [place] [id number] [place] [address] 88809- 6605 Aug, Other epilepsy without status epilepticus, not intractable G40.802 ; Benign essential hypertension I10 ; Bipolar I disorder, most recent episode (or current) depressed F31.30 ; Hereditary and idiopathic peripheral neuropathy G60.9 ; Lumbar canal stenosis M48.06 and Elevated ALT measurement R74.0 [place] [id number] [place] [address] 87182- 7844 Aug, [place] [address] 24147- 2730 Aug, [place] [address] [place] [id number] [place] [address] 80133- 4806 May, Benign essential hypertension I10 [place] [address] 0[address]69- 6803 Dec, Nondisplaced fracture of base of fifth metacarpal bone of right hand, initial encounter S62.346A [place] [address] 46899- 5810 Dec, Numbness of right hand R20.0 ; Right hand pain M79.641 ; Right wrist pain M25.531 and Closed nondisplaced fracture of base of fifth metacarpal bone of right hand, initial encounter S62.346A [place] [address] [place] [id number] [place] [address] 17347- 4360 Oct, [place] [address] [id number] [place] [address] 18199- 0956 Sep, [place] [address] [place] [address]- 6580 Jul, Benign essential hypertension I10 ; Hyperlipidemia, unspecified hyperlipidemia type E78.5 and Elevated ALT measurement R74.0 [place] [address] 74593- 6600 Jul, Bipolar I disorder, most recent episode (or current) depressed F31.30 [place] [address] 20575- 6770 Jul, Benign essential hypertension I10 [place] [address] 33710- 9758 Jul, [facility] [address] 23819- 7176 June, Benign essential hypertension I10 ; Bipolar I disorder, most recent episode (or current) depressed F31.30 ; Lumbar canal stenosis M48.06 and Other epilepsy without status epilepticus, not intractable G40.802 [place] [address] 03225- 8369 Feb, [facility] [address] 51784- 0232 Feb, [facility] [address] 84173- 7268 Nov, [facility] [address] [id number] [place] [address] 53985- 3789 Oct, [facility] [address] 26932- 2842 Oct, [facility] [address] [place] [id number] [place] [address] 11117- 6851 Oct, [facility] [address] 97967- 3077 Oct, Lumbar radiculopathy 724.4 ; Lumbar spinal stenosis 724.02 and Constipation 564.00 [facility] [address] 86751- 6638 Sep, [facility] [address] [id number] [address]- 3016 Sep, [facility] [address] [id number] [address]- 3393 Aug, Lumbar radiculopathy 724.4 [facility] [address] [id number] [address]- 7747 Aug, [facility] [address] [id number] [address]- 1053 Aug, Hamstring strain 843.8 [facility] [address] [id number] [address]- 9995 Jul, [facility] [address] [facility] [id number] [address]- 2452 Jul, [facility] [address] [facility] [id number] [place] [address]- 9868 May, [facility] [address] [id number] [place] [address]- 1798 May, [facility] [address] [facility] [id number] [place] [address]- 2679 Apr, [facility] [address] [facility] [id number] [place] [address]- 9607 Apr, [facility] [address] [id number] [place] [address]- 0738 Mar, [facility] [address] [id number] [address]- 4215 Mar, [facility] [address] [id number] [address]- 2656 Mar, [facility] [address] [id number] [address]- 9335 Mar, [facility] [address] [facility] [id number] [address]- 6214 Mar, 2014 [facility] [place] [facility] [address] [id number] [place] [address]- 5396 Mar, 2014 [facility] [place] [facility] [address] [id number] [place] [address]- 2876 Mar, 2014 [facility] [place] [facility] [address] [id number] [place] [address]- 9026 Mar, 2014 [facility] [place] [facility] [address] [id number] [place] [address]- 8265 Mar, 2014 [facility] [place] [facility] [address] [id number] [place] [address]- 9538 Mar, 2014 [facility] [place] [facility] [address] [facility] [id number] [place] [address]- 2996 Mar, 2014 [facility] [place] [facility] [address] [place] [id number] [address]- 0268 Mar, [facility] [place] [facility] [address] [facility] [id number] [place] [address]- 9018 Feb, [facility] [place] [facility] [address] [place] [address] [id number] [place] [address]- 8675 Feb, [facility] [place] [facility] [address] [place] [address] [id number] [place] [address]- 0463 Feb, [facility] [place] [facility] [address] [facility] [id number] [place] [address]- 7045 Feb, [facility] [place] [facility] [address] [facility] [id number] [place] [address] 2549 Feb, [facility] [place] [facility] [address] [facility] [id number] [place] [address]- 4775 Feb, [facility] [place] [facility] [address] [facility] [id number] [place] [address]- 8264 Jan, [facility] [place] [facility] [address] [facility] [id number] [place] 4[address] Jan, [facility] [place] [facility] [address] [id number] [place] [address]- 8389 Jan, [facility] [place] [facility] [address] [id number] [place] [address]- 9400 Dec, [facility] [place] [facility] [address] [id number] [place] [address]- 5401 Dec, [facility] [place] [facility] [address] [id number] [place] [address]- 0674 Dec, [facility] [place] [facility] [address] [id number] [place] [address]- 7571 Dec, [facility] [place] [facility] [address] [id number] [place] [address]- 6398 Dec, [facility] [place] [facility] [address] [id number] [place] [address]- 6144 Dec, [facility] [place] [facility] [address] [id number] [address]- 7450 Dec, [facility] [place] [facility] [address] [id number] [place] [address]- 0364 Dec, [facility] [place] [facility] [address] [id number] [address]- 2584 Dec, [facility] [place] [facility] [address] [id number] [place] [address]- 2093 Dec, [facility] [place] [facility] [address] [id number] [address]- 2581 Dec, [facility] [place] [facility] [address] [id number] [place] [address]- 4183 Dec, [facility] [place] [facility] [address] [id number] [address]- 3343 Nov, [facility] [place] [facility] [address] [id number] [address]- 1501 Nov, [facility] [place] [facility] [address] [id number] [address]- 3078 Nov, [facility] [place] [facility] [address] [id number] [place] [address]- 2562 10 Nov, 2013 [facility] [place] [facility] [address] [id number] [place] [address]- 8400 16 Oct, 2013 [facility] [place] [facility] [address] [id number] [place] [address]- 4646 16 Oct, 2013 [facility] [place] [facility] [address] [id number] [place] [address]- 1862 16 Oct, 2013 [facility] [place] [facility] [address] [id number] [place] [address]- 6209 16 Oct, 2013 [facility] [place] [facility] [address] [id number] [place] [address]- 5053 05 Oct, 2013 [facility] [place] [facility] [address] [id number] [place] [address]- 9517 Oct, [facility] [place] [facility] [address] [id number] [place] [address]- 6524 Sep, [facility] [place] [facility] [address] [id number] [place] [address]- 5628 Sep, [facility] [place] [facility] [address] [facility] [id number] [address]- 7104 Jul, [facility] [place] [facility] [address] [id number] [address]- 3137 Jul, [facility] [place] [facility] [address] [id number] [place] [address]- 1642 Jul, [facility] [place] [facility] [address] [id number] [address]- 9513 Jul, [facility] [place] [facility] [address] [facility] [id number] [address]- 0399 Jul, [facility] [place] [facility] [address] [id number] [place] [address]- 2927 Jul, [facility] [place] [facility] [address] [id number] [place] [address]- 6927 Jul, [facility] [place] [facility] [address] [id number] [place] [address]- 7306 Jul, [facility] [place] [facility] [address] [id number] [place] 5988 Jul, [facility] [place] [facility] [address] [id number] [place] [address]- 4445 Jul, [facility] [place] [facility] [address] [id number] [place] [address]- 7383 June, [facility] [place] [facility] [address] [id number] [place] [address]- 7747 June, [facility] [place] [facility] [address] [id number] [place] [address]- 4648 June, [facility] [place] [facility] [address] [id number] [place] [address]- 1710 June, [facility] [place] [facility] [address] [id number] [place] [address]- 8666 June, [facility] [place] [facility] [address] [id number] [place] [address]- 2952 June, [facility] [place] [facility] [address] [id number] [place] [address]- 3773 June, [facility] [place] [facility] [address] [id number] [place] [address]- 9767 June, [facility] [place] [facility] [address] [id number] [place] [address]- 6855 June, [facility] [place] [facility] [address] [id number] [place] [address]- 9005 June, [facility] [place] [facility] [address] [id number] [place]009 June, [facility] [place] [facility] [address] [id number] [place] [address]- 0540 June, [facility] [place] [facility] [address] [id number] [place] [address]- 3371 June, [facility] [place] [facility] [address] [id number] [place] [address]- 3213 June, [facility] [place] [facility] [address] [id number] [place] [address]- 7913 May, [facility] [place] [facility] [address] [id number] [place] [address]- 7210 May, [facility] [place] [facility] [address] [id number] [place] [address]- 5333 May, [facility] [place] [facility] [address] [id number] [place] [address]- 7618 May, [facility] [place] [facility] [address] [id number] [place] [address]- 9044 May, [facility] [place] [facility] [address] [id number] [place] [address]- 5379 May, [facility] [place] [facility] [address] [id number] [place] [address]- 8704 May, [facility] [place] [facility] [address] [id number] [place] [address]- 3141 May, [facility] [place] [facility] [address] [id number] [place] [address]- 3547 May, [facility] [place] [facility] [address] [id number] [place] [address]- 4184 May, [facility] [place] [facility] [address] [id number] [place] [address]- 7858 May, [facility] [place] [facility] [address] [id number] [place] [address]- 0513 May, [facility] [place] [facility] [address] [id number] [place] [address]- 9795 May, [facility] [place] [facility] [address] [id number] [place] [address]- 2785 May, [facility] [place] [facility] [address] [id number] [place] [address]- 2966 May, [facility] [place] [facility] [address] [id number] [place] [address]- 7946 Apr, [facility] [place] [facility] [address] [id number] [place] [address]- 4026 Apr, [facility] [place] [facility] [address] [id number] [place] [address]- 8107 Apr, [facility] [place] [facility] [address] [id number] [place] [address]- 2854 Apr, [facility] [place] [facility] [address] [id number] [place] [address]- 8771 Apr, [facility] [place] [facility] [address] [id number] [place] [address]- 1219 Apr, [facility] [place] [facility] [address] [id number] [place] [address]- 7905 Apr, [facility] [place] [facility] [address] [id number] [place] [address]- 8297 Apr, [facility] [place] [facility] [address] [id number] [place] [address]- 0825 Apr, [facility] [place] [facility] [address] [id number] [place] [address]- 6123 Apr, [facility] [place] [facility] [address] [id number] [place] [address]- 5885 Apr, [facility] [place] [facility] [address] [id number] [place] [address]- 2885 Apr, [facility] [place] [facility] [address] [id number] [place] [address]- 5750 Apr, [facility] [place] [facility] [address] [id number] [place] 6111 Apr, [facility] [place] [facility] [address] [id number] [place] [address]- 8686 Apr, [facility] [place] [facility] [address] [id number] [place] [address]- 6798 Apr, [facility] [place] [facility] [address] [id number] [place] [address]- 1700 Apr, [facility] [place] [facility] [address] [id number] [place] [address]- 0614 Apr, [facility] [place] [facility] [address] [id number] [place] [address]- 4100 Mar, [facility] [place] [facility] [address] [id number] [place] [address]- 9620 Mar, [facility] [place] [facility] [address] [id number] [place] [address]- 1965 Mar, [facility] [place] [facility] [address] [id number] [place] [address]- 5307 Mar, [facility] [place] [facility] [address] [id number] [place] [address]- 1990 Mar, [facility] [place] [facility] [address] [id number] [place] [address]- 4043 Mar, [facility] [place] [facility] [address] [id number] [place] [address]- 8435 Mar, [facility] [place] [facility] [address] [id number] [place] [address]- 9909 Mar, [facility] [place] [facility] [address] [id number] [place] [address]- 6993 Mar, [facility] [place] [facility] [address] [id number] [place] [address]- 2140 Mar, [facility] [place] [facility] [address] [id number] [place] [address]- 1249 Feb, [facility] [place] [facility] [address] [id number] [place] [address]- 4691 Feb, [facility] [address] [id number] [place] [address]- 0148 Feb, [facility] [address] [id number] [place] [address]- 7237 Feb, [facility] [address] [id number] [place] [address]- 5333 Feb, [facility] [address] [id number] [place] [address]- 2679 Feb, [facility] [address] [id number] [place] [address]- 0546 Feb, [facility] [address] [id number] [place] [address]- 1263 Feb, [facility] [address] [id number] [place] [address]- 5998 Feb, [facility] [address] [id number] [place] [address]- 1357 Feb, [facility] [address] [id number] [place] [address]- 3850 Feb, [facility] [address] [id number] [place] [address]- 3647 Feb, [facility] [address] [id number] [place] [address]- 6416 Feb, [facility] [address] [id number] [place] [address]- 7421 Jan, [facility] [place] [facility] [address] [id number] [place] [address]- 0143 Jan, [facility] [place] [facility] [address] [id number] [place] [address]- 7990 Nov, [facility] [place] [facility] [address] [id number] [place] [address]- 3723 Nov, [facility] [place] [facility] [address] [id number] [place] [address]- 8771 Nov, [facility] [place] [facility] [address] [id number] [place] [address]- 3230 Nov, [facility] [place] [facility] [address] [id number] [place] [address]- 3805 Nov, [facility] [place] [facility] [address] [id number] [place] [address]- 6372 Oct, [facility] [place] [facility] [address] [id number] [place] [address]- 7303 Oct, [facility] [place] [facility] [address] [id number] [place] [address]- 3947 Oct, [facility] [place] [facility] [address] [id number] [place] [address]- 3913 Oct, [facility] [place] [facility] [address] [id number] [place] [address]- 7003 Oct, [facility] [place] [facility] [address] [id number] [place] [address]- 2368 Sep, [facility] [place] [facility] [address] [id number] [place] [address]- 9235 Sep, [facility] [place] [facility] [address] [id number] [place] [address]- 8026 Sep, [facility] [place] [facility] [address] [id number] [address]- 4719 Sep, [facility] [place] [facility] [address] [id number] [place] [address]- 3273 Sep, [facility] [place] [facility] [address] [id number] [place] [address]- 7526 Sep, [facility] [place] [facility] [address] [id number] [address]- 0487 Sep, [facility] [place] [facility] [address] [id number] [address]- 8746 Aug, [facility] [address]00565[address] [address]- 1226 Aug, [facility] [id number] [address] Jul, [facility] [id number] [address] Jul, [facility] [id number] [address] June, [facility] [id number] [address] June, [facility] [id number] [address] June, [facility] [id number] [address] Apr, [facility] [id number] [address] Feb, [facility] [id number] [address] Feb, [facility] [id number] [address] Feb, [facility] [id number] [address] Feb, IMMUNIZATIONS No Known Immunizations SOCIAL HISTORY Never Assessed REASON FOR VISIT faxed paperwork PLAN OF CARE VITAL SIGNS MEDICATIONS Unknown Medications RESULTS No Results PROCEDURES No Known procedures INSTRUCTIONS MEDICATIONS ADMINISTERED No Known Medications MEDICAL (GENERAL) HISTORY Type Description Date Medical History epilepsy and recurrent seizures Medical History bipolar disorder Medical History neurologic disorder-neuropathy Surgical History back surgery 2013
--- OUTSIDE RECORDS SUMMARY | 2018-05-01 12:33 | XMS REPORT ---
Author Author DARRYL ERIKA [facility] Address [address] [place] [address] Care Team Providers Care Helminthologist Name Role Phone ERIKA ANDREWS Unavailable PROBLEMS Type Condition ICD9-CM Code YOB32-VT Code Onset Dates Condition Status SNOMED Code Problem Bipolar I disorder, most recent episode (or current) depressed F31.30 Active 42933419 Problem Lumbar canal stenosis M48.06 Active 10181941 Problem Benign essential hypertension I10 Active 7973551 Problem Other epilepsy without status epilepticus, not intractable G40.802 Active 307373908 Problem Hereditary and idiopathic peripheral neuropathy G60.9 Active 174741190 Problem Migraine without aura and without status migrainosus, not intractable G43.009 Active 075004717 Problem Raynauds disease without gangrene I73.00 Active 179399405 ALLERGIES No Information ENCOUNTERS Encounter Location Date Diagnosis [place] [id number] [address] Mar, Benign essential hypertension I10 and Other epilepsy without status epilepticus, not intractable G40.802 [facility] [address] [place] [id number] [place] [address] 79542- 5413 Feb, Benign essential hypertension I10 [facility] [address] [place] [id number] [place] [address] 32469- 9508 Dec, Benign essential hypertension I10 [facility] [address] [place] [id number] [place] [address] 63518- 6275 Sep, Lumbar canal stenosis M48.06 [facility] [address] [address]- 7227 Sep, [facility] [address] [place] [id number] [place] [address] 87156- 9315 Sep, Elevated lymphocytes D72.820 [place] [address] [place] [id number] [place] [address] 36767- 7345 Sep, [place] [address] [place] [id number] [place] [address] 21422- 5165 Aug, Bipolar I disorder, most recent episode (or current) depressed F31.30 [place] [address] [place] [id number] [place] [address] 19111- 2757 Aug, Other epilepsy without status epilepticus, not intractable G40.802 ; Benign essential hypertension I10 ; Bipolar I disorder, most recent episode (or current) depressed F31.30 ; Hereditary and idiopathic peripheral neuropathy G60.9 ; Lumbar canal stenosis M48.06 and Elevated ALT measurement R74.0 [place] [address] [place] [id number] [place] [address] 99531- 5458 Aug, [place] [address] 73132- 1755 Aug, [place] [address] [place] [id number] [place] [address] 79436- 4799 May, Benign essential hypertension I10 [place] [address] 01542- 5291 Dec, Nondisplaced fracture of base of fifth metacarpal bone of right hand, initial encounter S62.346A [place] [address] 41794- 5139 Dec, Numbness of right hand R20.0 ; Right hand pain M79.641 ; Right wrist pain M25.531 and Closed nondisplaced fracture of base of fifth metacarpal bone of right hand, initial encounter S62.346A [place] [address] [place] [id number] [place] [address] 92041- 2887 Oct, [place] [address] [place] [id number] [place] [address] 19634- 0435 Sep, [place] [address] [place] [address]- 2867 Jul, Benign essential hypertension I10 ; Hyperlipidemia, unspecified hyperlipidemia type E78.5 and Elevated ALT measurement R74.0 [place] [address] 14893- 7161 Jul, Bipolar I disorder, most recent episode (or current) depressed F31.30 [place] [address] 16051- 6260 Jul, Benign essential hypertension I10 [place] [address] 18472- 5179 Jul, [facility] [address] 98710- 7534 June, Benign essential hypertension I10 ; Bipolar I disorder, most recent episode (or current) depressed F31.30 ; Lumbar canal stenosis M48.06 and Other epilepsy without status epilepticus, not intractable G40.802 [place] [address] 10239- 2779 Feb, [facility] [address] 24153- 3127 Feb, [facility] [address] 95521- 1419 Nov, [facility] [address] [place] [id number] [place] [address] 24142- 1184 Oct, [facility] [address] 80272- 3457 Oct, [facility] [address] [place] [id number] [place] [address] 06405- 1190 Oct, [facility] [address] 98697- 7343 Oct, Lumbar radiculopathy 724.4 ; Lumbar spinal stenosis 724.02 and Constipation 564.00 [facility] [address] 16920- 4391 Sep, [facility] [address] [id number] [address]- 0063 Sep, [facility] [address] [id number], [place] [address]- 4991 Aug, Lumbar radiculopathy 724.4 [facility] [address] [id number], [place] [address]- 4097 Aug, [facility] [address] [id number], [place] [address]- 4927 Aug, Hamstring strain 843.8 [facility] [address] [id number], [place] [address]- 1085 Jul, [facility] [address] [facility] [id number], [place] [address]- 5378 Jul, [facility] [address] [facility] [id number], [place] [address]- 2363 May, [facility] [address] [id number], [place] [address]- 8062 May, [facility] [address] [facility] [id number], [place] [address]- 1385 Apr, [facility] [address] [facility] [id number], [place] [address]- 8837 Apr, [facility] [address] [id number][place] [address]- 6939 Mar, [facility] [address] [id number], [place] [address]- 4099 Mar, [facility] [address] [id number], [place] [address]- 9186 Mar, [facility] [address] [id number], [place] [address]- 2840 Mar, [facility] [address] [facility] [id number], [place] [address]- 8300 Mar, 2014 [facility] [place] [facility] [address] [id number] [place] [address]- 0936 Mar, 2014 [facility] [place] [facility] [address] [id number] [place] [address]- 4916 Mar, 2014 [facility] [place] [facility] [address] [id number] [place] [address]- 0466 Mar, 2014 [facility] [place] [facility] [address] [id number] [place] [address]- 7348 Mar, 2014 [facility] [place] [facility] [address] [id number] [place] [address]- 4727 Mar, 2014 [facility] [place] [facility] [address] [facility] [id number] [place] [address]- 6466 Mar, 2014 [facility] [place] [facility] [address] [place] [id number] [place] [address]- 3896 Mar, [facility] [place] [facility] [address] [facility] [id number] [place] [address]- 9649 Feb, [facility] [place] [facility] [address] [place] [id number] [place] [address]- 5665 Feb, [facility] [place] [facility] [address] [place] [id number] [place] [address]- 9029 Feb, [facility] [place] [facility] [address] [facility] [id number] [place] [address]- 2178 Feb, [facility] [place] [facility] [address] [facility] [id number], [place] [address] 2547 Feb, [facility] [place] [facility] [address] [facility] [id number] [place] [address]- 4873 Feb, [facility] [place] [facility] [address] [facility] [id number] [place] [address]- 4326 Jan, [facility] [place] [facility] [address] [facility] [id number] [place] 2343 Jan, [facility] [place] [facility] [address] [id number] [place] [address]- 4244 Jan, [facility] [place] [facility] [address] [id number] [place] [address]- 4213 Dec, [facility] [place] [facility] [address] [id number] [place] [address]- 8174 Dec, [facility] [place] [facility] [address] [id number] [place] [address]- 9032 Dec, [facility] [place] [facility] [address] [id number] [place] [address]- 1366 Dec, [facility] [place] [facility] [address] [id number] [place] [address]- 5969 Dec, [facility] [place] [facility] [address] [id number] [place] [address]- 1935 Dec, [facility] [place] [facility] [address] [id number], [place] [address]- 5015 Dec, [facility] [place] [facility] [address] [id number] [place] [address]- 7697 Dec, [facility] [place] [facility] [address] [id number], [place] [address]- 3389 Dec, [facility] [place] [facility] [address] [id number], [place] [address]- 3441 Dec, [facility] [place] [facility] [address] [id number], [place] [address]- 4127 Dec, [facility] [place] [facility] [address] [id number], [place] [address]- 3261 Dec, [facility] [place] [facility] [address] [id number], [place] [address]- 2981 Nov, [facility] [place] [facility] [address] [id number], [place] [address]- 0619 Nov, [facility] [place] [facility] [address] [id number], [place] [address]- 7862 Nov, [facility] [place] [facility] [address] [id number] [place] [address]- 6558 10 Nov, 2013 [facility] [place] [facility] [address] [id number] [place] [address]- 6232 16 Oct, 2013 [facility] [place] [facility] [address] [id number] [place] [address]- 8846 16 Oct, 2013 [facility] [place] [facility] [address] [id number] [place] [address]- 6047 16 Oct, 2013 [facility] [place] [facility] [address] [id number] [place] [address]- 8057 16 Oct, 2013 [facility] [place] [facility] [address] [id number] [place] [address]- 5614 05 Oct, 2013 [facility] [place] [facility] [address] [id number] [place] [address]- 0807 Oct, [facility] [place] [facility] [address] [id number] [place] [address]- 0698 Sep, [facility] [place] [facility] [address] [id number] [place] [address]- 7470 Sep, [facility] [place] [facility] [address] [facility] [id number], [place] [address]- 7843 Jul, [facility] [place] [facility] [address] [id number], [place] [address]- 6432 Jul, [facility] [place] [facility] [address] [id number] [address]- 5655 Jul, [facility] [place] [facility] [address] [id number], [place] [address]- 2116 Jul, [facility] [place] [facility] [address] [facility] [id number], [place] [address]- 3403 Jul, [facility] [place] [facility] [address] [id number], [place] [address]- 3168 Jul, [facility] [place] [facility] [address] [id number] [place] [address]- 8066 Jul, [facility] [place] [facility] [address] [id number] [place] [address]- 6906 Jul, [facility] [place] [facility] [address] [id number] [place] 3658 Jul, [facility] [place] [facility] [address] [id number] [place] [address]- 5198 Jul, [facility] [place] [facility] [address] [id number] [place] [address]- 0759 June, [facility] [place] [facility] [address] [id number] [place] [address]- 8732 June, [facility] [place] [facility] [address] [id number] [place] [address]- 1975 June, [facility] [place] [facility] [address] [id number] [place] [address]- 1077 June, [facility] [place] [facility] [address] [id number] [place] [address]- 1748 June, [facility] [place] [facility] [address] [id number] [place] [address]- 3187 June, [facility] [place] [facility] [address] [id number] [place] [address]- 5219 June, [facility] [place] [facility] [address] [id number] [place] [address]- 0236 June, [facility] [place] [facility] [address] [id number] [place] [address]- 2841 June, [facility] [place] [facility] [address] [id number] [place] [address]- 5621 June, [facility] [place] [facility] [address] [id number] [place] 4064 June, [facility] [place] [facility] [address] [id number] [place] [address]- 2723 June, [facility] [place] [facility] [address] [id number] [place] [address]- 3270 June, [facility] [place] [facility] [address] [id number] [place] [address]- 8765 June, [facility] [place] [facility] [address] [id number] [place] [address]- 3085 May, [facility] [place] [facility] [address] [id number] [place] [address]- 6777 May, [facility] [place] [facility] [address] [id number] [place] [address]- 3597 May, [facility] [place] [facility] [address] [id number] [place] [address]- 8246 May, [facility] [place] [facility] [address] [id number] [place] [address]- 3298 May, [facility] [place] [facility] [address] [id number] [place] [address]- 3005 May, [facility] [place] [facility] [address] [id number] [place] [address]- 3653 May, [facility] [place] [facility] [address] [id number] [place] [address]- 3522 May, [facility] [place] [facility] [address] [id number] [place] [address]- 0995 May, [facility] [place] [facility] [address] [id number] [place] [address]- 4323 May, [facility] [place] [facility] [address] [id number] [place] [address]- 6755 May, [facility] [place] [facility] [address] [id number] [place] [address]- 2079 May, [facility] [place] [facility] [address] [id number] [place] [address]- 1894 May, [facility] [place] [facility] [address] [id number] [place] [address]- 9182 May, [facility] [place] [facility] [address] [id number] [place] [address]- 1856 May, [facility] [place] [facility] [address] [id number] [place] [address]- 4966 Apr, [facility] [place] [facility] [address] [id number] [place] [address]- 2036 Apr, [facility] [place] [facility] [address] [id number] [place] [address]- 9761 Apr, [facility] [place] [facility] [address] [id number] [place] [address]- 0183 Apr, [facility] [place] [facility] [address] [id number] [place] [address]- 2168 Apr, [facility] [place] [facility] [address] [id number] [place] [address]- 6541 Apr, [facility] [place] [facility] [address] [id number] [place] [address]- 7563 Apr, [facility] [place] [facility] [address] [id number] [place] [address]- 0696 Apr, [facility] [place] [facility] [address] [id number] [place] [address]- 1588 Apr, [facility] [place] [facility] [address] [id number] [place] [address]- 0475 Apr, [facility] [place] [facility] [address] [id number] [place] [address]- 7868 Apr, [facility] [place] [facility] [address] [id number] [place] [address]- 1641 Apr, [facility] [place] [facility] [address] [id number] [place] [address]- 1627 Apr, [facility] [place] [facility] [address] [id number] [place] 6069 Apr, [facility] [place] [facility] [address] [id number] [place] [address]- 1028 Apr, [facility] [place] [facility] [address] [id number] [place] [address]- 8689 Apr, [facility] [place] [facility] [address] [id number] [place] [address]- 4835 Apr, [facility] [place] [facility] [address] [id number] [place] [address]- 8408 Apr, [facility] [place] [facility] [address] [id number] [place] [address]- 9088 Mar, [facility] [place] [facility] [address] [id number] [place] [address]- 9036 Mar, [facility] [place] [facility] [address] [id number] [place] [address]- 3717 Mar, [facility] [place] [facility] [address] [id number] [place] [address]- 9024 Mar, [facility] [place] [facility] [address] [id number] [place] [address]- 7856 Mar, [facility] [place] [facility] [address] [id number] [place] [address]- 9948 Mar, [facility] [place] [facility] [address] [id number] [place] [address]- 8202 Mar, [facility] [place] [facility] [address] [id number] [place] [address]- 4080 Mar, [facility] [place] [facility] [address] [id number] [place] [address]- 5262 Mar, [facility] [place] [facility] [address] [id number] [place] [address]- 6972 Mar, [facility] [place] [facility] [address] [id number] [place] [address]- 1674 Feb, [facility] [place] [facility] [address] [id number] [place] [address]- 3048 Feb, [facility] [address] [id number] [place] [address]- 9529 Feb, [facility] [address] [id number] [place] [address]- 4376 Feb, [facility] [address] [id number] [place] [address]- 4927 Feb, [facility] [address] [id number] [place] [address]- 2180 Feb, [facility] [address] [id number] [place] [address]- 8137 Feb, [facility] [address] [id number] [place] [address]- 1403 Feb, [facility] [address] [id number] [place] [address]- 8359 Feb, [facility] [address] [id number] [place] [address]- 5089 Feb, [facility] [address] [id number] [place] [address]- 4657 Feb, [facility] [address] [id number] [place] [address]- 6700 Feb, [facility] [address] [id number] [place] [address]- 1204 Feb, [facility] [address] [id number] [place] [address]- 0677 Jan, [facility] [place] [facility] [address] [id number] [place] [address]- 9937 Jan, [facility] [place] [facility] [address] [id number] [place] [address]- 8147 Nov, [facility] [place] [facility] [address] [id number] [place] [address]- 9758 Nov, [facility] [place] [facility] [address] [id number] [place] [address]- 1279 Nov, [facility] [place] [facility] [address] [id number] [place] [address]- 5421 Nov, [facility] [place] [facility] [address] [id number] [place] [address]- 1250 Nov, [facility] [place] [facility] [address] [id number] [place] [address]- 0469 Oct, [facility] [place] [facility] [address] [id number] [place] [address]- 3460 Oct, [facility] [place] [facility] [address] [id number] [place] [address]- 3343 Oct, [facility] [place] [facility] [address] [id number] [place] [address] Oct, [facility] [place] [facility] [address] [id number] [place] [address] Oct, [facility] [place] [facility] [address] [id number] [place] [address] Sep, [facility] [place] [facility] [address] [id number] [place] [address] Sep, [facility] [place] [facility] [address] [id number] [place] [address] Sep, [facility] [place] [facility] [address] [id number], [place] [address] Sep, [facility] [place] [facility] [address] [id number] [place] [address] Sep, [facility] [place] [facility] [address] [id number] [place] [address] Sep, [facility] [place] [facility] [address] [id number] [address] Sep, [facility] [place] [facility] [address] [id number], [place] [address] Aug, [facility] [id number] [address] Aug, [facility] [id number], [place] [address] Jul, [facility] [id number] [address] Jul, [facility] [id number], [place] [address] June, [facility] [id number], [place] [address] June, [facility] [id number], [place] [address] June, [facility] [id number], [place] [address] Apr, [facility] [id number], [place] [address] Feb, [facility] [id number], [place] [address] Feb, [facility] [id number], [place] [address] Feb, [facility] [address] [id number] [address] Feb, IMMUNIZATIONS No Known Immunizations SOCIAL HISTORY Never Assessed REASON FOR VISIT Future lab order PLAN OF CARE VITAL SIGNS MEDICATIONS Unknown Medications RESULTS No Results PROCEDURES No Known procedures INSTRUCTIONS MEDICATIONS ADMINISTERED No Known Medications MEDICAL (GENERAL) HISTORY Type Description Date Medical History epilepsy and recurrent seizures Medical History bipolar disorder Medical History neurologic disorder-neuropathy Surgical History back surgery 2013
--- OUTSIDE RECORDS SUMMARY | 2018-05-01 12:34 | XMS REPORT ---
Author Author DARRYL ERIKA [facility] Address [address] [place] [address] Care Team Providers Care Customer Program Manager Name Role Phone ERIKA ANDREWS Unavailable PROBLEMS Type Condition ICD9-CM Code VXY70-FA Code Onset Dates Condition Status SNOMED Code Problem Bipolar I disorder, most recent episode (or current) depressed F31.30 Active 49822113 Problem Lumbar canal stenosis M48.06 Active 75234765 Problem Benign essential hypertension I10 Active 8280267 Problem Other epilepsy without status epilepticus, not intractable G40.802 Active 070713845 Problem Hereditary and idiopathic peripheral neuropathy G60.9 Active 062231428 Problem Migraine without aura and without status migrainosus, not intractable G43.009 Active 376706020 Problem Raynauds disease without gangrene I73.00 Active 043446192 ALLERGIES No Information ENCOUNTERS Encounter Location Date Diagnosis [place] [address] [address]- [address] Jul, Other epilepsy without status epilepticus, not intractable G40.802 [place] [address] [address]- 9548 Mar, Benign essential hypertension I10 and Other epilepsy without status epilepticus, not intractable G40.802 [facility] [address] [place] [id number] [place] [address] 29491- 7656 Feb, Benign essential hypertension I10 [facility] [address] 33036- 9857 Dec, Benign essential hypertension I10 [facility] [address] 51567- 4538 Sep, Lumbar canal stenosis M48.06 [facility] [address] 11024- 4597 Sep, [facility] [id number] [place] [address] 49749- 4960 Sep, Elevated lymphocytes D72.820 [facility] [address] [place] [id number] [place] [address] 64757- 4421 Sep, [facility] [address] [place] [place] [id number] [place] [address] 45016- 4235 Aug, Bipolar I disorder, most recent episode (or current) depressed F31.30 [place] [address] [place] [id number] [place] [address] 90057- 7656 Aug, Other epilepsy without status epilepticus, not intractable G40.802 ; Benign essential hypertension I10 ; Bipolar I disorder, most recent episode (or current) depressed F31.30 ; Hereditary and idiopathic peripheral neuropathy G60.9 ; Lumbar canal stenosis M48.06 and Elevated ALT measurement R74.0 [place] [address] [place] [id number] [place] [address] 68294- 9240 Aug, [place] [address] [place] [id number] [place] [address] 07702- 1162 Aug, [place] [address] [place] [id number] [place] [address] 02818- 4062 May, Benign essential hypertension I10 [place] [address] [place] [id number] [place] [address] 46353- 6206 Dec, Nondisplaced fracture of base of fifth metacarpal bone of right hand, initial encounter S62.346A [place] [address] [place] [id number] [place] [address] 54985- 3148 Dec, Numbness of right hand R20.0 ; Right hand pain M79.641 ; Right wrist pain M25.531 and Closed nondisplaced fracture of base of fifth metacarpal bone of right hand, initial encounter S62.346A [place] [address] [place] [id number] [place] [address] 78310- 1972 Oct, [facility] [address] [place] [place] [id number] [place] [address] 46672- 9318 Sep, [facility] [address] [place] [id number] [place] [address] 92130- 4029 Jul, Benign essential hypertension I10 ; Hyperlipidemia, unspecified hyperlipidemia type E78.5 and Elevated ALT measurement R74.0 [facility] [address] 70490- 0414 Jul, Bipolar I disorder, most recent episode (or current) depressed F31.30 [facility] [address] 86953- 4854 Jul, Benign essential hypertension I10 [facility] [address] [place] [id number] [place] [address] 99501- 0229 Jul, [facility] [address] 88888- 2809 June, Benign essential hypertension I10 ; Bipolar I disorder, most recent episode (or current) depressed F31.30 ; Lumbar canal stenosis M48.06 and Other epilepsy without status epilepticus, not intractable G40.802 [facility] [address] [place] [id number] [place] [address] 42355- 2355 Feb, [facility] [address] [place] [id number] [place] [address] 06045- 4759 Feb, [facility] [address] [place] [id number] [place] [address] 92396- 5101 Nov, [facility] [address] [place] [id number] [place] [address] 76371- 0021 Oct, [facility] [address] 85552- 7358 Oct, [facility] [address] [place] [id number] [place] [address] 02287- 4303 Oct, [facility] [address] [place] [id number] [place] [address] 55068- 7010 Oct, Lumbar radiculopathy 724.4 ; Lumbar spinal stenosis 724.02 and Constipation 564.00 [facility] [address] [place] [id number] [place] [address] 80089- 9798 Sep, [facility] [address] [place] [id number] [place] [address] 186233- 7006 Sep, [facility] [address] [place] [id number] [place] [address] 59729- 5950 Aug, Lumbar radiculopathy 724.4 [facility] [address] [place] [id number] [place] [address] 52391- 5179 Aug, [facility] [address] [place] [id number] [place] [address] 91128- 7038 Aug, Hamstring strain 843.8 [facility] [address] [place] [id number] [place] [address] 79411- 1099 Jul, [facility] [address] [place] [id number] [place] [address] 59144- 7669 Jul, [facility] [address] [place] [id number] [place] [address] 42367- 3337 May, [facility] [address] [place] [id number] [place] [address] 68072- 2345 May, [facility] [address] [address]- 1007 Apr, [facility] [id number] [place] [address] 47791- 5985 Apr, [facility] [id number] [place] [address] 395890- 1230 Mar, [facility] [address] [place] [id number] [place] [address] 443937- 2959 Mar, [facility] [address] [address] Mar, [facility] [place] [facility] [address] [id number] [place] [address]- 9752 Mar, 2014 [facility] [place] [facility] [address] [id number] [place] [address]- 2127 Mar, 2014 [facility] [place] [facility] [address] [id number] [place] [address]- 6441 Mar, 2014 [facility] [place] [facility] [address] [id number] [place] [address]- 6926 Mar, 2014 [facility] [place] [facility] [address] [id number] [place] [address]- 1316 Mar, 2014 [facility] [place] [facility] [address] [id number] [place] [address]- 4608 Mar, 2014 [facility] [place] [facility] [address] [id number] [place] [address]- 4707 Mar, 2014 [facility] [place] [facility] [address] [id number] [place] [address]- 3324 Mar, 2014 [facility] [place] [facility] [address] [id number] [place] [address]- 6209 Mar, 2014 [facility] [place] [facility] [address] [facility] [id number] [place] [address]- 1322 Feb, [facility] [place] [facility] [address] [id number] [address]- 6580 Feb, [facility] [place] [facility] [address] [id number] [address]- 0173 Feb, [facility] [place] [facility] [address] [id number] [place] [address]- 5920 Feb, [facility] [place] [facility] [address] [id number] [address]- 2823 Feb, [facility] [place] [facility] [address] [id number] [place] [address]- 8446 Feb, [facility] [place] [facility] [address] [id number] [place] [address]- 6485 Jan, [facility] [place] [facility] [address] [id number] [place] [address]- 2064 Jan, [facility] [place] [facility] [address] [id number] [place] [address]- 8539 Jan, [facility] [place] [facility] [address] [id number] [place] [address]- 3749 Dec, [facility] [place] [facility] [address] [id number] [place] [address]- 7952 Dec, [facility] [place] [facility] [address] [id number] [place] [address]- 1000 Dec, [facility] [place] [facility] [address] [id number] [place] [address]- 1479 Dec, [facility] [place] [facility] [address] [id number] [place] [address]- 2710 Dec, [facility] [place] [facility] [address] [id number] [place] [address]- 8553 Dec, [facility] [place] [facility] [address] [id number] [place] [address]- 7969 Dec, [facility] [place] [facility] [address] [facility] [id number] [place] [address]- 6039 Dec, [facility] [place] [facility] [address] [id number] [place] [address]- 4991 Dec, [facility] [place] [facility] [address] [id number] [address]- 0225 Dec, [facility] [place] [facility] [address] [id number] [place] [address]- 0407 Dec, [facility] [place] [facility] [address] [id number] [place] [address]- 0550 Dec, [facility] [place] [facility] [address] [id number] [place] [address]- 6854 Nov, [facility] [place] [facility] [address] [id number] [place] [address]- 5949 Nov, [facility] [place] [facility] [address] [id number] [place] [address]- 6675 Nov, [facility] [place] [facility] [address] [id number] [place] [address]- 8359 Nov, [facility] [place] [facility] [address] [id number] [place] [address]- 7624 16 Oct, 2013 [facility] [place] [facility] [address] [id number] [place] [address]- 9954 16 Oct, 2013 [facility] [place] [facility] [address] [id number] [place] [address]- 7465 Oct, [facility] [place] [facility] [address] [id number] [place] [address]- 5955 Oct, [facility] [place] [facility] [address] [id number] [place] [address]- 8648 Oct, [facility] [place] [facility] [address] [id number] [place] [address]- 9718 Oct, [facility] [place] [facility] [address] [id number] [place] [address]- 9241 Sep, [facility] [place] [facility] [address] [id number] [place] [address]- 2105 Sep, [facility] [place] [facility] [address] [id number] [place] [address]- 1141 Jul, [facility] [place] [facility] [address] [id number] [place] [address]- 6021 Jul, [facility] [place] [facility] [address] [id number] [place] [address]- 0137 Jul, [facility] [place] [facility] [address] [id number] [place] [address]- 3922 Jul, [facility] [place] [facility] [address] [id number] [place] [address]- 2016 Jul, [facility] [place] [facility] [address] [id number] [place] [address]- 3361 Jul, [facility] [place] [facility] [address] [id number] [place] [address]- 2828 Jul, [facility] [place] [facility] [address] [id number] [place] [address]- 7827 Jul, [facility] [place] [facility] [address] [id number] [place] [address]- 6158 Jul, [facility] [place] [facility] [address] [id number] [place] [address]- 5186 Jul, [facility] [place] [facility] [address] [id number] [place] [address]- 2010 June, [facility] [place] [facility] [address] [id number] [place] [address]- 0612 June, [facility] [place] [facility] [address] [id number] [place] [address]- 4081 June, [facility] [place] [facility] [address] [id number] [place] [address]- 3001 June, [facility] [place] [facility] [address] [id number] [place] [address]- 8731 June, [facility] [place] [facility] [address] [id number] [place] [address]- 0740 June, [facility] [place] [facility] [address] [id number] [place] [address]- 5119 June, [facility] [place] [facility] [address] [id number] [place] [address]- 9553 June, [facility] [place] [facility] [address] [id number] [place] [address]- 5701 June, [facility] [place] [facility] [address] [id number] [place] [address]- 0291 June, [facility] [place] [facility] [address] [id number] [place] [address]- 7711 June, [facility] [address] [id number] [place] [address]- 1494 June, [facility] [address] [id number] [place] [address]- 8911 June, [facility] [address] [id number] [place] [address]- 9333 June, [facility] [address] [id number] [place] [address]- 0372 May, [facility] [address] [id number] [place] [address]- 5377 May, [facility] [address] [id number] [place] [address]- 7996 May, [facility] [address] [id number] [place] [address]- 5599 May, [facility] [address] [id number] [place] [address]- 9403 May, [facility] [address] [id number] [place] [address]- 3031 May, [facility] [address] [id number] [place] [address]- 0512 May, [facility] [place] [facility] [address] [id number] [place] [address]- 9937 May, [facility] [address] [id number] [place] [address]- 3783 May, [facility] [place] [facility] [address] [id number] [place] [address]- 0045 May, [facility] [place] [facility] [address] [id number] [place] [address]- 2377 May, [facility] [place] [facility] [address] [id number] [place] [address]- 3772 May, [facility] [place] [facility] [address] [id number] [place] [address]- 7678 May, [facility] [place] [facility] [address] [id number] [place] [address]- 7251 May, [facility] [place] [facility] [address] [id number] [place] [address]- 6684 May, [facility] [place] [facility] [address] [id number] [place] [address]- 1999 Apr, [facility] [place] [facility] [address] [id number] [place] [address]- 6002 Apr, [facility] [place] [facility] [address] [id number] [place] [address]- 7302 Apr, [facility] [place] [facility] [address] [id number] [place] [address]- 8323 Apr, [facility] [place] [facility] [address] [id number] [place] [address]- 4312 Apr, [facility] [place] [facility] [address] [id number] [place] [address]- 1367 Apr, [facility] [place] [facility] [address] [id number] [place] [address]- 3783 Apr, [facility] [place] [facility] [address] [id number] [place] [address]- 7209 Apr, [facility] [place] [facility] [address] [id number] [place] [address]- 9021 Apr, [facility] [place] [facility] [address] [id number] [place] [address]- 4850 Apr, [facility] [place] [facility] [address] [id number] [place] [address]- 8749 Apr, [facility] [place] [facility] [address] [id number] [place] [address]- 9495 Apr, [facility] [place] [facility] [address] [id number] [address]- 1795 Apr, [facility] [place] [facility] [address] [id number] [place] [address]- 6671 Apr, [facility] [place] [facility] [address] [id number] [place] [address]- 5022 Apr, [facility] [place] [facility] [address] [facility] [id number] [place] [address]- 5967 Apr, [facility] [place] [facility] [address] [id number] [place] [address]- 5782 Apr, [facility] [place] [facility] [address] [id number] [place] [address]- 2823 Apr, [facility] [place] [facility] [address] [id number] [place] [address]- 8232 Mar, [facility] [place] [facility] [address] [facility] [id number] [place] [address]- 6854 Mar, [facility] [place] [facility] [address] [facility] [id number] [place] [address]- 6632 Mar, [facility] [place] [facility] [address] [facility] [address] [id number] [place] [address]- 9970 Mar, [facility] [place] [facility] [address] [facility] [id number] [place] [address]- 3632 Mar, [facility] [place] [facility] [address] [facility] [id number] [place] [address]- 2407 Mar, [facility] [place] [facility] [address] [facility] [id number] [place] [address]- 4980 Mar, [facility] [place] [facility] [address] [facility] [id number] [place] [address]- 5182 Mar, [facility] [place] [facility] [address] [facility] [address] [id number] [place] [address]- 4024 Mar, [facility] [place] [facility] [address] [facility] [id number] [place] [address]- 0778 Mar, [facility] [place] [facility] [address] [id number] [place] [address]- 1176 Feb, [facility] [place] [facility] [address] [id number] [place] [address]- 4676 Feb, [facility] [place] [facility] [address] [id number] [place] [address]- 3696 Feb, [facility] [place] [facility] [address] [id number] [place] [address]- 6616 Feb, [facility] [place] [facility] [address] [id number] [place] [address]- 1233 Feb, [facility] [place] [facility] [address] [id number] [place] [address]- 0776 Feb, [facility] [place] [facility] [address] [id number] [place] [address]- 5406 Feb, [facility] [place] [facility] [address] [id number] [place] [address]- 9806 Feb, [facility] [place] [facility] [address] [id number] [place] [address]- 0154 Feb, [facility] [place] [facility] [address] [id number] [place] [address]- 9892 Feb, [facility] [place] [facility] [address] [id number] [place] [address]- 5936 Feb, [facility] [place] [facility] [address] [id number] [address]- 0669 Feb, [facility] [place] [facility] [address] [id number] [place] [address]- 0342 Feb, [facility] [place] [facility] [address] [id number] [place] [address]- 2506 Jan, [facility] [place] [facility] [address] [id number] [place] [address]- 5046 Jan, [facility] [place] [facility] [address] [id number] [address]- 8290 Nov, [facility] [place] [facility] [address] [id number] [place] [address]- 7577 Nov, [facility] [place] [facility] [address] [id number] [place] [address]- 0134 Nov, [facility] [place] [facility] [address] [id number] [place] [address]- 6028 Nov, [facility] [place] [facility] [address] [id number] [place] [address]- 2930 Nov, [facility] [place] [facility] [address] [id number] [place] [address]- 4045 Oct, [facility] [place] [facility] [address] [id number] [place] [address] Oct, [facility] [place] [facility] [address] [id number] [place] [address] Oct, [facility] [place] [facility] [address] [id number] [place] [address] Oct, [facility] [place] [facility] [address] [id number] [place] [address] Oct, [facility] [place] [facility] [address] [id number] [place] [address] Sep, [facility] [place] [facility] [address] [id number] [place] [address] Sep, [facility] [place] [facility] [address] [id number] [address] Sep, [facility] [place] [facility] [address] [id number] [place] [address] Sep, [facility] [place] [facility] [address] [id number] [place] [address] Sep, [facility] [place] [facility] [address] [id number] [place] [address] Sep, [facility] [place] [facility] [address] [facility] [id number] [address] Sep, [facility] [id number] [address] Aug, [facility] [address] [facility] [address] [id number] [address] Aug, [facility] [address] [facility] [address] [id number] [address] Jul, [facility] [address] [facility] [id number] [address] Jul, [facility] [id number] [address] June, [facility] [address] [id number] [address] June, [facility] [id number] [address] June, [facility] [id number] [address] Apr, [facility] [id number] [address] Feb, [facility] [address] [id number] [address] Feb, [facility] [address] [id number] [address] Feb, [facility] [address] [id number] [address] Feb, IMMUNIZATIONS No Known Immunizations SOCIAL HISTORY Never Assessed REASON FOR VISIT med refills PLAN OF CARE VITAL SIGNS MEDICATIONS Medication Instructions Dosage Frequency Start Date End Date Duration Status Lisinopril 40 mg Orally Once a day 1 tablet 24h 90 days Active RESULTS No Results PROCEDURES No Known procedures INSTRUCTIONS MEDICATIONS ADMINISTERED No Known Medications MEDICAL (GENERAL) HISTORY Type Description Date Medical History epilepsy and recurrent seizures Medical History bipolar disorder Medical History neurologic disorder-neuropathy Surgical History back surgery 2013
--- OUTSIDE RECORDS SUMMARY | 2018-05-01 12:34 | XMS REPORT ---
Author Author DARRYL ERIKA [facility] Address [address] [place] [address] Care Team Providers Care Washcloth Folder Name Role Phone ERIKA ANDREWS Unavailable PROBLEMS Type Condition ICD9-CM Code PVQ90-ZC Code Onset Dates Condition Status SNOMED Code Problem Bipolar I disorder, most recent episode (or current) depressed F31.30 Active 16875981 Problem Lumbar canal stenosis M48.06 Active 91969128 Problem Benign essential hypertension I10 Active 2298563 Problem Other epilepsy without status epilepticus, not intractable G40.802 Active 789632624 Problem Hereditary and idiopathic peripheral neuropathy G60.9 Active 957403469 Problem Migraine without aura and without status migrainosus, not intractable G43.009 Active 614739575 Problem Raynauds disease without gangrene I73.00 Active 091333984 ALLERGIES No Information ENCOUNTERS Encounter Location Date Diagnosis [place] [id number] [address] Mar, Benign essential hypertension I10 and Other epilepsy without status epilepticus, not intractable G40.802 [facility] [address] [place] [id number] [place] [address] 42865- 6391 Feb, Benign essential hypertension I10 [facility] [address] [id number] [place] [address] 42112- 2189 Dec, Benign essential hypertension I10 [facility] [address] [id number] [place] [address] 32083- 5917 Sep, Lumbar canal stenosis M48.06 [facility] [address] 97185- [address]059 Sep, [facility] [address] [place] [id number] [place] [address] 65020- 0569 Sep, Elevated lymphocytes D72.820 [place] [address] [place] [id number] [place] [address] 88312- 6486 Sep, [place] [address] [place] [id number] [place] [address] 48909- 4703 Aug, Bipolar I disorder, most recent episode (or current) depressed F31.30 [place] [address] [place] [id number] [place] [address] 04982- 9209 Aug, Other epilepsy without status epilepticus, not intractable G40.802 ; Benign essential hypertension I10 ; Bipolar I disorder, most recent episode (or current) depressed F31.30 ; Hereditary and idiopathic peripheral neuropathy G60.9 ; Lumbar canal stenosis M48.06 and Elevated ALT measurement R74.0 [place] [address] [id number] [place] [address] 71821- 5340 Aug, [place] [address] 17128- 8897 Aug, [place] [address] [place] [id number] [place] [address] 52451- 7305 May, Benign essential hypertension I10 [place] [address] 027[address]- 9564 Dec, Nondisplaced fracture of base of fifth metacarpal bone of right hand, initial encounter S62.346A [place] [address] 49371- 5021 Dec, Numbness of right hand R20.0 ; Right hand pain M79.641 ; Right wrist pain M25.531 and Closed nondisplaced fracture of base of fifth metacarpal bone of right hand, initial encounter S62.346A [place] [address] [id number] [place] [address] 96515- 8409 Oct, [place] [address] [place] [id number] [place] [address] 06554- 3647 Sep, [place] [address] [place] [address]- [address] Jul, Benign essential hypertension I10 ; Hyperlipidemia, unspecified hyperlipidemia type E78.5 and Elevated ALT measurement R74.0 [place] [address] 28619- 4980 Jul, Bipolar I disorder, most recent episode (or current) depressed F31.30 [place] [address] 30921- 6625 Jul, Benign essential hypertension I10 [place] [address] 53105- 6938 Jul, [facility] [address] 43064- 3417 June, Benign essential hypertension I10 ; Bipolar I disorder, most recent episode (or current) depressed F31.30 ; Lumbar canal stenosis M48.06 and Other epilepsy without status epilepticus, not intractable G40.802 [place] [address] 54295- 1864 Feb, [facility] [address] 59217- 9584 Feb, [facility] [address] 47950- 1659 Nov, [facility] [address] [place] [id number] [place] [address] 30384- 1731 Oct, [facility] [address] 34345- 8729 Oct, [facility] [address] [place] [id number] [place] [address] 71234- 5560 Oct, [facility] [address] 82604- 8371 Oct, Lumbar radiculopathy 724.4 ; Lumbar spinal stenosis 724.02 and Constipation 564.00 [facility] [address] 57676- 5587 Sep, [facility] [address] [id number] [address] 9904 Sep, [facility] [address] [id number], [place] [address]- 5455 Aug, Lumbar radiculopathy 724.4 [facility] [address] [id number] [address]- 0787 Aug, [facility] [address] [id number] [address]- 6908 Aug, Hamstring strain 843.8 [facility] [address] [id number] [address]- 7910 Jul, [facility] [address] [facility] [id number] [address]- 6715 Jul, [facility] [address] [facility] [id number], [place] [address]- 9751 May, [facility] [address] [id number] [address]- 2910 May, [facility] [address] [facility] [id number] [address]- 3833 Apr, [facility] [address] [facility] [id number] [address]- 0636 Apr, [facility] [address] [id number] [address]- 7932 Mar, [facility] [address] [id number] [address]- 6103 Mar, [facility] [address] [id number][place] [address]- 0369 Mar, [facility] [address] [id number] [address]- 5662 Mar, [facility] [address] [facility] [id number], [place] [address]- 7361 Mar, 2014 [facility] [place] [facility] [address] [id number] [place] [address]- 2376 Mar, 2014 [facility] [place] [facility] [address] [id number] [place] [address]- 8186 Mar, 2014 [facility] [place] [facility] [address] [id number] [place] [address]- 6296 Mar, 2014 [facility] [place] [facility] [address] [id number] [place] [address]- 3815 Mar, 2014 [facility] [place] [facility] [address] [id number] [place] [address]- 9843 Mar, 2014 [facility] [place] [facility] [address] [facility] [id number] [place] [address]- 1894 Mar, 2014 [facility] [place] [facility] [address] [place] [id number] [place] [address]- 6756 Mar, [facility] [place] [facility] [address] [facility] [id number] [place] [address]- 2537 Feb, [facility] [place] [facility] [address] [place] [id number] [place] [place] [address]- 4160 Feb, [facility] [place] [facility] [address] [place] [id number] [place] [place] [address]- 4172 Feb, [facility] [place] [facility] [address] [facility] [id number] [place] [address]- 9912 Feb, [facility] [place] [facility] [address] [facility] [id number], [place] [address] 2547 Feb, [facility] [place] [facility] [address] [facility] [id number] [place] [address]- 2827 Feb, [facility] [place] [facility] [address] [facility] [id number] [place] [address]- 7088 Jan, [facility] [place] [facility] [address] [facility] [id number] [place] 0571 Jan, [facility] [place] [facility] [address] [id number] [place] [address]- 3094 Jan, [facility] [place] [facility] [address] [id number] [place] [address]- 0017 Dec, [facility] [place] [facility] [address] [id number] [place] [address]- 8631 Dec, [facility] [place] [facility] [address] [id number] [place] [address]- 0219 Dec, [facility] [place] [facility] [address] [id number] [place] [address]- 8600 Dec, [facility] [place] [facility] [address] [id number] [place] [address]- 2696 Dec, [facility] [place] [facility] [address] [id number] [place] [address]- 8611 Dec, [facility] [place] [facility] [address] [id number] [address]- 2957 Dec, [facility] [place] [facility] [address] [id number] [place] [address]- 3366 Dec, [facility] [place] [facility] [address] [id number], [place] [address]- 5901 Dec, [facility] [place] [facility] [address] [id number] [address]- 1724 Dec, [facility] [place] [facility] [address] [id number] [address]- 2051 Dec, [facility] [place] [facility] [address] [id number] [address]- 7492 Dec, [facility] [place] [facility] [address] [id number], [place] [address]- 7452 Nov, [facility] [place] [facility] [address] [id number] [address]- 3228 Nov, [facility] [place] [facility] [address] [id number] [address]- 4938 Nov, [facility] [place] [facility] [address] [id number] [place] [address]- 8231 10 Nov, 2013 [facility] [place] [facility] [address] [id number] [place] [address]- 5106 16 Oct, 2013 [facility] [place] [facility] [address] [id number] [place] [address]- 7976 16 Oct, 2013 [facility] [place] [facility] [address] [id number] [place] [address]- 7123 16 Oct, 2013 [facility] [place] [facility] [address] [id number] [place] [address]- 9813 16 Oct, 2013 [facility] [place] [facility] [address] [id number] [place] [address]- 2321 05 Oct, 2013 [facility] [place] [facility] [address] [id number] [place] [address]- 1210 Oct, [facility] [place] [facility] [address] [id number] [place] [address]- 1231 Sep, [facility] [place] [facility] [address] [id number] [place] [address]- 7959 Sep, [facility] [place] [facility] [address] [facility] [id number][place] [address]- 0324 Jul, [facility] [place] [facility] [address] [id number], [place] [address]- 5716 Jul, [facility] [place] [facility] [address] [id number], [place] [address]- 8438 Jul, [facility] [place] [facility] [address] [id number] [address]- 8854 Jul, [facility] [place] [facility] [address] [facility] [id number] [address]- 9003 Jul, [facility] [place] [facility] [address] [id number] [address]- 9596 Jul, [facility] [place] [facility] [address] [id number] [place] [address]- 3060 Jul, [facility] [place] [facility] [address] [id number] [place] [address]- 0990 Jul, [facility] [place] [facility] [address] [id number] [place] 4998 Jul, [facility] [place] [facility] [address] [id number] [place] [address]- 8033 Jul, [facility] [place] [facility] [address] [id number] [place] [address]- 6634 June, [facility] [place] [facility] [address] [id number] [place] [address]- 1506 June, [facility] [place] [facility] [address] [id number] [place] [address]- 0540 June, [facility] [place] [facility] [address] [id number] [place] [address]- 4004 June, [facility] [place] [facility] [address] [id number] [place] [address]- 3962 June, [facility] [place] [facility] [address] [id number] [place] [address]- 1277 June, [facility] [place] [facility] [address] [id number] [place] [address]- 5277 June, [facility] [place] [facility] [address] [id number] [place] [address]- 3278 June, [facility] [place] [facility] [address] [id number] [place] [address]- 2157 June, [facility] [place] [facility] [address] [id number] [place] [address]- 7171 June, [facility] [place] [facility] [address] [id number] [place] 0544 June, [facility] [place] [facility] [address] [id number] [place] [address]- 5675 June, [facility] [place] [facility] [address] [id number] [place] [address]- 2368 June, [facility] [place] [facility] [address] [id number] [place] [address]- 1966 June, [facility] [place] [facility] [address] [id number] [place] [address]- 5623 May, [facility] [place] [facility] [address] [id number] [place] [address]- 5571 May, [facility] [place] [facility] [address] [id number] [place] [address]- 3793 May, [facility] [place] [facility] [address] [id number] [place] [address]- 0494 May, [facility] [place] [facility] [address] [id number] [place] [address]- 2624 May, [facility] [place] [facility] [address] [id number] [place] [address]- 8599 May, [facility] [place] [facility] [address] [id number] [place] [address]- 5566 May, [facility] [place] [facility] [address] [id number] [place] [address]- 2981 May, [facility] [place] [facility] [address] [id number] [place] [address]- 1103 May, [facility] [place] [facility] [address] [id number] [place] [address]- 9814 May, [facility] [place] [facility] [address] [id number] [place] [address]- 3367 May, [facility] [place] [facility] [address] [id number] [place] [address]- 2081 May, [facility] [place] [facility] [address] [id number] [place] [address]- 8220 May, [facility] [place] [facility] [address] [id number] [place] [address]- 2443 May, [facility] [place] [facility] [address] [id number] [place] [address]- 9556 May, [facility] [place] [facility] [address] [id number] [place] [address]- 5486 Apr, [facility] [place] [facility] [address] [id number] [place] [address]- 7436 Apr, [facility] [place] [facility] [address] [id number] [place] [address]- 2128 Apr, [facility] [place] [facility] [address] [id number] [place] [address]- 8969 Apr, [facility] [place] [facility] [address] [id number] [place] [address]- 7659 Apr, [facility] [place] [facility] [address] [id number] [place] [address]- 1140 Apr, [facility] [place] [facility] [address] [id number] [place] [address]- 8798 Apr, [facility] [place] [facility] [address] [id number] [place] [address]- 4765 Apr, [facility] [place] [facility] [address] [id number] [place] [address]- 8227 Apr, [facility] [place] [facility] [address] [id number] [place] [address]- 8556 Apr, [facility] [place] [facility] [address] [id number] [place] [address]- 3977 Apr, [facility] [place] [facility] [address] [id number] [place] [address]- 0142 Apr, [facility] [place] [facility] [address] [id number] [place] [address]- 4080 Apr, [facility] [place] [facility] [address] [id number] [place] 9239 Apr, [facility] [place] [facility] [address] [id number] [place] [address]- 2841 Apr, [facility] [place] [facility] [address] [id number] [place] [address]- 0281 Apr, [facility] [place] [facility] [address] [id number] [place] [address]- 8829 Apr, [facility] [place] [facility] [address] [id number] [place] [address]- 3380 Apr, [facility] [place] [facility] [address] [id number] [place] [address]- 6202 Mar, [facility] [place] [facility] [address] [id number] [place] [address]- 0954 Mar, [facility] [place] [facility] [address] [id number] [place] [address]- 4443 Mar, [facility] [place] [facility] [address] [id number] [place] [address]- 0306 Mar, [facility] [place] [facility] [address] [id number] [place] [address]- 9116 Mar, [facility] [place] [facility] [address] [id number] [place] [address]- 5218 Mar, [facility] [place] [facility] [address] [id number] [place] [address]- 6108 Mar, [facility] [place] [facility] [address] [id number] [place] [address]- 8128 Mar, [facility] [place] [facility] [address] [id number] [place] [address]- 0692 Mar, [facility] [place] [facility] [address] [id number] [place] [address]- 8865 Mar, [facility] [place] [facility] [address] [id number] [place] [address]- 0979 Feb, [facility] [place] [facility] [address] [id number] [place] [address]- 9542 Feb, [facility] [address] [id number] [place] [address]- 9265 Feb, [facility] [address] [id number] [place] [address]- 3982 Feb, [facility] [address] [id number] [place] [address]- 8194 Feb, [facility] [address] [id number] [place] [address]- 0449 Feb, [facility] [address] [id number] [place] [address]- 8322 Feb, [facility] [address] [id number] [place] [address]- 9466 Feb, [facility] [address] [id number] [place] [address]- 4935 Feb, [facility] [address] [id number] [place] [address]- 7934 Feb, [facility] [address] [id number] [place] [address]- 1995 Feb, [facility] [address] [id number] [place] [address]- 5753 Feb, [facility] [address] [id number] [place] [address]- 9447 Feb, [facility] [address] [id number] [place] [address]- 0168 Jan, [facility] [place] [facility] [address] [id number] [place] [address]- 4289 Jan, [facility] [place] [facility] [address] [id number] [place] [address]- 9835 Nov, [facility] [place] [facility] [address] [id number] [place] [address]- 0779 Nov, [facility] [place] [facility] [address] [id number] [place] [address]- 0823 Nov, [facility] [place] [facility] [address] [id number] [place] [address]- 5579 Nov, [facility] [place] [facility] [address] [id number] [place] [address]- 2022 Nov, [facility] [place] [facility] [address] [id number] [place] [address]- 9142 Oct, [facility] [place] [facility] [address] [id number] [place] [address]- 5130 Oct, [facility] [place] [facility] [address] [id number] [place] [address]- 6513 Oct, [facility] [place] [facility] [address] [id number] [place] [address] Oct, [facility] [place] [facility] [address] [id number] [place] [address] Oct, [facility] [place] [facility] [address] [id number] [place] [address] Sep, [facility] [place] [facility] [address] [id number] [place] [address] Sep, [facility] [place] [facility] [address] [id number] [place] [address] Sep, [facility] [place] [facility] [address] [id number] [address] Sep, [facility] [place] [facility] [address] [id number] [place] [address] Sep, [facility] [place] [facility] [address] [id number] [place] [address] Sep, [facility] [place] [facility] [address] [id number] [address] Sep, [facility] [place] [facility] [address] [id number], [place] [address] Aug, [facility] [id number] [address] Aug, [facility] [id number] [address] Jul, [facility] [id number] [address] Jul, [facility] [id number] [address] June, [facility] [id number] [address] June, [facility] [id number] [address] June, [facility] [id number] [address] Apr, [facility] [id number], [place] [address] Feb, [facility] [id number], [place] [address] Feb, [facility] [id number] [address] Feb, [facility] [address] [id number] [address] Feb, IMMUNIZATIONS No Known Immunizations SOCIAL HISTORY Never Assessed REASON FOR VISIT Medication Refill PLAN OF CARE VITAL SIGNS MEDICATIONS Medication Instructions Dosage Frequency Start Date End Date Duration Status Cyclobenzaprine HCl 10 mg Orally Three times a day as needed for muscle spasm/ pain 1 tablet Aug, Active RESULTS No Results PROCEDURES No Known procedures INSTRUCTIONS MEDICATIONS ADMINISTERED No Known Medications MEDICAL (GENERAL) HISTORY Type Description Date Medical History epilepsy and recurrent seizures Medical History bipolar disorder Medical History neurologic disorder-neuropathy Surgical History back surgery 2013
--- OUTSIDE RECORDS SUMMARY | 2018-05-01 12:35 | XMS REPORT ---
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 Name Role Phone ERIKA ANDREWS Unavailable PROBLEMS Type Condition ICD9-CM Code KTM48-AR Code Onset Dates Condition Status SNOMED Code Problem Bipolar I disorder, most recent episode (or current) depressed F31.30 Active 10250997 Problem Lumbar canal stenosis M48.06 Active 91072146 Problem Benign essential hypertension I10 Active 7239878 Problem Other epilepsy without status epilepticus, not intractable G40.802 Active 773506814 Problem Hereditary and idiopathic peripheral neuropathy G60.9 Active 548222158 Problem Migraine without aura and without status migrainosus, not intractable G43.009 Active 271276388 Problem Raynauds disease without gangrene I73.00 Active 539545112 ALLERGIES No Information ENCOUNTERS Encounter Location Date Diagnosis [place] [id number] [address] Mar, Benign essential hypertension I10 and Other epilepsy without status epilepticus, not intractable G40.802 [facility] [address] [place] [id number] [place] [address] 30751- 6413 Feb, Benign essential hypertension I10 [facility] [id number] [place] [address] 95167- 6634 Dec, Benign essential hypertension I10 [facility] [id number] [place] [address] 27247- 1426 Sep, Lumbar canal stenosis M48.06 [facility] [address] [address]- 239[address] Sep, [facility] [id number] [place] [address] 49236- 0852 Sep, Elevated lymphocytes D72.820 [place] [address] [id number] [place] [address] 04354- 5718 Sep, [place] [address] [place] [id number] [place] [address] 01703- 9814 Aug, Bipolar I disorder, most recent episode (or current) depressed F31.30 [place] [address] [id number] [place] [address] 41787- 7996 Aug, Other epilepsy without status epilepticus, not intractable G40.802 ; Benign essential hypertension I10 ; Bipolar I disorder, most recent episode (or current) depressed F31.30 ; Hereditary and idiopathic peripheral neuropathy G60.9 ; Lumbar canal stenosis M48.06 and Elevated ALT measurement R74.0 [place] [address] [id number] [place] [address] 73538- 8914 Aug, [place] [address] 8[address]- 0291 Aug, [place] [address] [place] [id number] [place] [address] 13088- 6863 May, Benign essential hypertension I10 [place] [address] 77787- 9124 Dec, Nondisplaced fracture of base of fifth metacarpal bone of right hand, initial encounter S62.346A [place] [address] [address]- 6850 Dec, Numbness of right hand R20.0 ; Right hand pain M79.641 ; Right wrist pain M25.531 and Closed nondisplaced fracture of base of fifth metacarpal bone of right hand, initial encounter S62.346A [place] [address] [place] [id number] [place] [address] 02071- 4145 Oct, [place] [address] [place] [id number] [place] [address] 02853- 1610 Sep, [place] [address] [place] [address]- 9856 Jul, Benign essential hypertension I10 ; Hyperlipidemia, unspecified hyperlipidemia type E78.5 and Elevated ALT measurement R74.0 [place] [address] 34441- 3274 Jul, Bipolar I disorder, most recent episode (or current) depressed F31.30 [place] [address] 10420- 0610 Jul, Benign essential hypertension I10 [place] [address] 61542- 9803 Jul, [facility] [address] 95150- 3369 June, Benign essential hypertension I10 ; Bipolar I disorder, most recent episode (or current) depressed F31.30 ; Lumbar canal stenosis M48.06 and Other epilepsy without status epilepticus, not intractable G40.802 [place] [address] 82262- 3134 Feb, [facility] [address] 49631- 6030 Feb, [facility] [address] 41439- 2363 Nov, [facility] [address] [place] [id number] [place] [address] 87672- 1145 Oct, [facility] [address] 26027- 7579 Oct, [facility] [address] [place] [id number] [place] [address] 13377- 3149 Oct, [facility] [address] 72698- 0466 Oct, Lumbar radiculopathy 724.4 ; Lumbar spinal stenosis 724.02 and Constipation 564.00 [facility] [address] 26104- 6000 Sep, [facility] [address] [id number], [place] [address]- 3834 Sep, [facility] [address] [id number], [place] [address]- 0936 Aug, Lumbar radiculopathy 724.4 [facility] [address] [id number], [place] [address]- 7642 Aug, [facility] [address] [id number], [place] [address]- 7906 Aug, Hamstring strain 843.8 [facility] [address] [id number], [place] [address]- 1302 Jul, [facility] [address] [facility] [id number], [place] [address]- 1592 Jul, [facility] [address] [facility] [id number], [place] [address]- 8994 May, [facility] [address] [id number], [place] [address]- 1398 May, [facility] [address] [facility] [id number], [place] [address]- 4715 Apr, [facility] [address] [facility] [id number], [place] [address]- 3653 Apr, [facility] [address] [id number], [place] [address]- 9011 Mar, [facility] [address] [id number], [place] [address]- 7710 Mar, [facility] [address] [id number], [place] [address]- 0584 Mar, [facility] [address] [id number], [place] [address]- 9744 Mar, [facility] [address] [facility] [id number], [place] [address]- 2566 Mar, 2014 [facility] [place] [facility] [address] [id number] [place] [address]- 7396 Mar, 2014 [facility] [place] [facility] [address] [id number] [place] [address]- 2486 Mar, 2014 [facility] [place] [facility] [address] [id number] [place] [address]- 3216 Mar, 2014 [facility] [place] [facility] [address] [id number] [place] [address]- 1119 Mar, 2014 [facility] [place] [facility] [address] [id number] [place] [address]- 5309 Mar, 2014 [facility] [place] [facility] [address] [facility] [id number] [place] [address]- 9866 Mar, 2014 [facility] [place] [facility] [address] [place] [id number] [place] [address]- 2274 Mar, [facility] [place] [facility] [address] [facility] [id number] [place] [address]- 7794 Feb, [facility] [place] [facility] [address] [place] [id number] [place] [address]- 3333 Feb, [facility] [place] [facility] [address] [place] [address] [id number] [place] [address]- 4276 Feb, [facility] [place] [facility] [address] [facility] [id number] [place] [address]- 4909 Feb, [facility] [place] [facility] [address] [facility] [id number], [place] [address] 2545 Feb, [facility] [place] [facility] [address] [facility] [id number] [place] [address]- 6539 Feb, [facility] [place] [facility] [address] [facility] [id number] [place] [address]- 9076 Jan, [facility] [place] [facility] [address] [facility] [id number] [place] 6896 Jan, [facility] [place] [facility] [address] [id number] [place] [address]- 8074 Jan, [facility] [place] [facility] [address] [id number] [place] [address]- 5601 Dec, [facility] [place] [facility] [address] [id number] [place] [address]- 0839 Dec, [facility] [place] [facility] [address] [id number] [place] [address]- 2885 Dec, [facility] [place] [facility] [address] [id number] [place] [address]- 0854 Dec, [facility] [place] [facility] [address] [id number] [place] [address]- 9408 Dec, [facility] [place] [facility] [address] [id number] [place] [address]- 5966 Dec, [facility] [place] [facility] [address] [id number], [place] [address]- 8136 Dec, [facility] [place] [facility] [address] [id number] [place] [address]- 4074 Dec, [facility] [place] [facility] [address] [id number], [place] [address]- 7801 Dec, [facility] [place] [facility] [address] [id number], [place] [address]- 7483 Dec, [facility] [place] [facility] [address] [id number], [place] [address]- 6096 Dec, [facility] [place] [facility] [address] [id number], [place] [address]- 4378 Dec, [facility] [place] [facility] [address] [id number], [place] [address]- 5279 Nov, [facility] [place] [facility] [address] [id number], [place] [address]- 2825 Nov, [facility] [place] [facility] [address] [id number], [place] [address]- 6756 Nov, [facility] [place] [facility] [address] [id number] [place] [address]- 9442 10 Nov, 2013 [facility] [place] [facility] [address] [id number] [place] [address]- 2405 16 Oct, 2013 [facility] [place] [facility] [address] [id number] [place] [address]- 0016 16 Oct, 2013 [facility] [place] [facility] [address] [id number] [place] [address]- 5626 16 Oct, 2013 [facility] [place] [facility] [address] [id number] [place] [address]- 9320 16 Oct, 2013 [facility] [place] [facility] [address] [id number] [place] [address]- 5676 05 Oct, 2013 [facility] [place] [facility] [address] [id number] [place] [address]- 6970 Oct, [facility] [place] [facility] [address] [id number] [place] [address]- 0502 Sep, [facility] [place] [facility] [address] [id number] [place] [address]- 5920 Sep, [facility] [place] [facility] [address] [facility] [id number], [place] [address]- 5291 Jul, [facility] [place] [facility] [address] [id number], [place] [address]- 2151 Jul, [facility] [place] [facility] [address] [id number], [place] [address]- 7239 Jul, [facility] [place] [facility] [address] [id number], [place] [address]- 8426 Jul, [facility] [place] [facility] [address] [facility] [id number][place] [address]- 3262 Jul, [facility] [place] [facility] [address] [id number], [place] [address]- 6515 Jul, [facility] [place] [facility] [address] [id number] [place] [address]- 4271 Jul, [facility] [place] [facility] [address] [id number] [place] [address]- 9332 Jul, [facility] [place] [facility] [address] [id number] [place] 1324 Jul, [facility] [place] [facility] [address] [id number] [place] [address]- 9700 Jul, [facility] [place] [facility] [address] [id number] [place] [address]- 5824 June, [facility] [place] [facility] [address] [id number] [place] [address]- 1418 June, [facility] [place] [facility] [address] [id number] [place] [address]- 1908 June, [facility] [place] [facility] [address] [id number] [place] [address]- 5848 June, [facility] [place] [facility] [address] [id number] [place] [address]- 5147 June, [facility] [place] [facility] [address] [id number] [place] [address]- 2778 June, [facility] [place] [facility] [address] [id number] [place] [address]- 4748 June, [facility] [place] [facility] [address] [id number] [place] [address]- 5582 June, [facility] [place] [facility] [address] [id number] [place] [address]- 9209 June, [facility] [place] [facility] [address] [id number] [place] [address]- 4135 June, [facility] [place] [facility] [address] [id number] [place] 8363 June, [facility] [place] [facility] [address] [id number] [place] [address]- 2539 June, [facility] [place] [facility] [address] [id number] [place] [address]- 6663 June, [facility] [place] [facility] [address] [id number] [place] [address]- 6554 June, [facility] [place] [facility] [address] [id number] [place] [address]- 6542 May, [facility] [place] [facility] [address] [id number] [place] [address]- 4182 May, [facility] [place] [facility] [address] [id number] [place] [address]- 8163 May, [facility] [place] [facility] [address] [id number] [place] [address]- 9321 May, [facility] [place] [facility] [address] [id number] [place] [address]- 9117 May, [facility] [place] [facility] [address] [id number] [place] [address]- 1149 May, [facility] [place] [facility] [address] [id number] [place] [address]- 4121 May, [facility] [place] [facility] [address] [id number] [place] [address]- 4742 May, [facility] [place] [facility] [address] [id number] [place] [address]- 2284 May, [facility] [place] [facility] [address] [id number] [place] [address]- 8500 May, [facility] [place] [facility] [address] [id number] [place] [address]- 9166 May, [facility] [place] [facility] [address] [id number] [place] [address]- 2579 May, [facility] [place] [facility] [address] [id number] [place] [address]- 2221 May, [facility] [place] [facility] [address] [id number] [place] [address]- 5780 May, [facility] [place] [facility] [address] [id number] [place] [address]- 6756 May, [facility] [place] [facility] [address] [id number] [place] [address]- 3996 Apr, [facility] [place] [facility] [address] [id number] [place] [address]- 1636 Apr, [facility] [place] [facility] [address] [id number] [place] [address]- 1268 Apr, [facility] [place] [facility] [address] [id number] [place] [address]- 5695 Apr, [facility] [place] [facility] [address] [id number] [place] [address]- 4936 Apr, [facility] [place] [facility] [address] [id number] [place] [address]- 6634 Apr, [facility] [place] [facility] [address] [id number] [place] [address]- 7458 Apr, [facility] [place] [facility] [address] [id number] [place] [address]- 9666 Apr, [facility] [place] [facility] [address] [id number] [place] [address]- 1985 Apr, [facility] [place] [facility] [address] [id number] [place] [address]- 9310 Apr, [facility] [place] [facility] [address] [id number] [place] [address]- 4700 Apr, [facility] [place] [facility] [address] [id number] [place] [address]- 2746 Apr, [facility] [place] [facility] [address] [id number] [place] [address]- 0027 Apr, [facility] [place] [facility] [address] [id number] [place] 6732 Apr, [facility] [place] [facility] [address] [id number] [place] [address]- 9221 Apr, [facility] [place] [facility] [address] [id number] [place] [address]- 0285 Apr, [facility] [place] [facility] [address] [id number] [place] [address]- 0628 Apr, [facility] [place] [facility] [address] [id number] [place] [address]- 8406 Apr, [facility] [place] [facility] [address] [id number] [place] [address]- 2042 Mar, [facility] [place] [facility] [address] [id number] [place] [address]- 3061 Mar, [facility] [place] [facility] [address] [id number] [place] [address]- 3600 Mar, [facility] [place] [facility] [address] [id number] [place] [address]- 7122 Mar, [facility] [place] [facility] [address] [id number] [place] [address]- 2969 Mar, [facility] [place] [facility] [address] [id number] [place] [address]- 3320 Mar, [facility] [place] [facility] [address] [id number] [place] [address]- 0256 Mar, [facility] [place] [facility] [address] [id number] [place] [address]- 7548 Mar, [facility] [place] [facility] [address] [id number] [place] [address]- 6108 Mar, [facility] [place] [facility] [address] [id number] [place] [address]- 4907 Mar, [facility] [place] [facility] [address] [id number] [place] [address]- 1859 Feb, [facility] [place] [facility] [address] [id number] [place] [address]- 3460 Feb, [facility] [address] [id number] [place] [address]- 5690 Feb, [facility] [address] [id number] [place] [address]- 2954 Feb, [facility] [address] [id number] [place] [address]- 1755 Feb, [facility] [address] [id number] [place] [address]- 9238 Feb, [facility] [address] [id number] [place] [address]- 1675 Feb, [facility] [address] [id number] [place] [address]- 7842 Feb, [facility] [address] [id number] [place] [address]- 4184 Feb, [facility] [address] [id number] [place] [address]- 3036 Feb, [facility] [address] [id number] [place] [address]- 8017 Feb, [facility] [address] [id number] [place] [address]- 0245 Feb, [facility] [address] [id number] [place] [address]- 2462 Feb, [facility] [address] [id number] [place] [address]- 8089 Jan, [facility] [place] [facility] [address] [id number] [place] [address]- 9161 Jan, [facility] [place] [facility] [address] [id number] [place] [address]- 1165 Nov, [facility] [place] [facility] [address] [id number] [place] [address]- 5855 Nov, [facility] [place] [facility] [address] [id number] [place] [address]- 9179 Nov, [facility] [place] [facility] [address] [id number] [place] [address]- 5267 Nov, [facility] [place] [facility] [address] [id number] [place] [address]- 7748 Nov, [facility] [place] [facility] [address] [id number] [place] [address] Oct, [facility] [place] [facility] [address] [id number] [place] [address] Oct, [facility] [place] [facility] [address] [id number] [place] [address] Oct, [facility] [place] [facility] [address] [id number] [place] [address] Oct, [facility] [place] [facility] [address] [id number] [place] [address] Oct, [facility] [place] [facility] [address] [id number] [place] [address] Sep, [facility] [place] [facility] [address] [id number] [place] [address] Sep, [facility] [place] [facility] [address] [id number] [place] [address] Sep, [facility] [place] [facility] [address] [id number], [place] [address] Sep, [facility] [place] [facility] [address] [id number] [place] [address] Sep, [facility] [place] [facility] [address] [id number] [place] [address] Sep, [facility] [place] [facility] [address] [id number], [place] [address] Sep, [facility] [place] [facility] [address] [id number], [place] [address] Aug, [facility] [id number] [address] Aug, [facility] [id number], [place] [address] Jul, [facility] [id number], [place] [address] Jul, [facility] [id number], [place] [address] June, [facility] [id number], [place] [address] June, [facility] [id number] [address] June, [facility] [id number], [place] [address] Apr, [facility] [id number], [place] [address] Feb, [facility] [id number] [address] Feb, [facility] [id number], [place] [address] Feb, [facility] [id number] [address] Feb, IMMUNIZATIONS No Known Immunizations SOCIAL HISTORY Never Assessed REASON FOR VISIT Refill Request PLAN OF CARE VITAL SIGNS MEDICATIONS Medication Instructions Dosage Frequency Start Date End Date Duration Status Lisinopril 40 mg Orally Once a day 1 tablet 24h 30 days Active Propranolol HCl 80 MG Orally 2 times a day 0.5 tablet 12h 30 days Active RESULTS No Results PROCEDURES No Known procedures INSTRUCTIONS MEDICATIONS ADMINISTERED No Known Medications MEDICAL (GENERAL) HISTORY Type Description Date Medical History epilepsy and recurrent seizures Medical History bipolar disorder Medical History neurologic disorder-neuropathy Surgical History back surgery 2013
--- OUTSIDE RECORDS SUMMARY | 2018-05-01 12:35 | XMS REPORT ---
Author Author DARRYL ERIKA [facility] Address [address] [place] [address] Care Team Providers Care Pattern Mechanic Name Role Phone ERIKA ANDREWS Unavailable PROBLEMS Type Condition ICD9-CM Code SXZ97-IY Code Onset Dates Condition Status SNOMED Code Problem Bipolar I disorder, most recent episode (or current) depressed F31.30 Active 30289466 Problem Lumbar canal stenosis M48.06 Active 11830755 Problem Benign essential hypertension I10 Active 4706465 Problem Other epilepsy without status epilepticus, not intractable G40.802 Active 400200794 Problem Hereditary and idiopathic peripheral neuropathy G60.9 Active 250545178 Problem Migraine without aura and without status migrainosus, not intractable G43.009 Active 984183836 Problem Raynauds disease without gangrene I73.00 Active [id number] ALLERGIES No Information ENCOUNTERS Encounter Location Date Diagnosis [place] [address] [address] Mar, Benign essential hypertension I10 and Other epilepsy without status epilepticus, not intractable G40.802 [facility] [place] [address] [place] [id number] [place] [address] 93808- 0686 Feb, Benign essential hypertension I10 [facility] [place] [address] [place] [id number] [place] [address] 57205- 2153 Dec, Benign essential hypertension I10 [facility] [place] [address] [id number] [place] [address] 32864- 8500 Sep, Lumbar canal stenosis M48.06 [facility] [place] [address] 34568- 9787 Sep, [facility] [place] [address] [id number] [place] [address] 07281- 9502 Sep, Elevated lymphocytes D72.820 [place] [address] [place] [id number] [place] [address] 85448- 3807 Sep, [place] [address] [place] [id number] [place] [address] 08186- 9854 Aug, Bipolar I disorder, most recent episode (or current) depressed F31.30 [place] [address] [place] [id number] [place] [address] 10524- 1237 Aug, Other epilepsy without status epilepticus, not intractable G40.802 ; Benign essential hypertension I10 ; Bipolar I disorder, most recent episode (or current) depressed F31.30 ; Hereditary and idiopathic peripheral neuropathy G60.9 ; Lumbar canal stenosis M48.06 and Elevated ALT measurement R74.0 [place] [address] [place] [id number] [place] [address] 74912- 2731 Aug, [place] [address] 06785- 6115 Aug, [place] [address] [place] [id number] [place] [address] 03540- 1718 May, Benign essential hypertension I10 [place] [address] 25177- 0897 Dec, Nondisplaced fracture of base of fifth metacarpal bone of right hand, initial encounter S62.346A [place] [address] 58418- 8898 Dec, Numbness of right hand R20.0 ; Right hand pain M79.641 ; Right wrist pain M25.531 and Closed nondisplaced fracture of base of fifth metacarpal bone of right hand, initial encounter S62.346A [place] [address] [place] [id number] [place] [address] 55208- 0075 Oct, [place] [address] [place] [id number] [place] [address] 55137- 2634 Sep, [place] [address] [place] [address]- 9067 Jul, Benign essential hypertension I10 ; Hyperlipidemia, unspecified hyperlipidemia type E78.5 and Elevated ALT measurement R74.0 [place] [address] 74295- 5701 Jul, Bipolar I disorder, most recent episode (or current) depressed F31.30 [place] [address] 79885- 6326 Jul, Benign essential hypertension I10 [place] [address] 90822- 9252 Jul, [facility] [place] [address] 53463- 3993 June, Benign essential hypertension I10 ; Bipolar I disorder, most recent episode (or current) depressed F31.30 ; Lumbar canal stenosis M48.06 and Other epilepsy without status epilepticus, not intractable G40.802 [place] [address] 65016- 6510 Feb, [facility] [place] [address] 65324- 1835 Feb, [facility] [place] [address] 76077- 1618 Nov, [facility] [place] [address] [place] [id number] [place] [address] 78285- 6328 Oct, [facility] [place] [address] 93418- 2302 Oct, [facility] [place] [address] [place] [id number] [place] [address] 80581- 9196 Oct, [facility] [place] [address] 69116- 9117 Oct, Lumbar radiculopathy 724.4 ; Lumbar spinal stenosis 724.02 and Constipation 564.00 [facility] [place] [address] 13346- 2260 Sep, [facility] [address] [id number], [place] [address]- 0693 Sep, [facility] [address] [id number], [place] [address]- 4513 Aug, Lumbar radiculopathy 724.4 [facility] [address] [id number], [place] [address]- 1226 Aug, [facility] [address] [id number], [place] [address]- 4444 Aug, Hamstring strain 843.8 [facility] [address] [id number], [place] [address]- 1302 Jul, [facility] [address] [facility] [id number][place] [address]- 9493 Jul, [facility] [address] [facility] [id number], [place] [address]- 1882 May, [facility] [address] [id number], [place] [address]- 7970 May, [facility] [address] [facility] [id number], [place] [address]- 0113 Apr, [facility] [address] [facility] [id number], [place] [address]- 4341 Apr, [facility] [address] [id number], [place] [address]- 9467 Mar, [facility] [address] [id number], [place] [address]- 9946 Mar, [facility] [address] [id number][place] [address]- 0424 Mar, [facility] [address] [id number], [place] [address]- 6769 Mar, [facility] [address] [facility] [id number], [place] [address]- 8810 Mar, 2014 [facility] [place] [facility] [address] [id number] [place] [address]- 8856 Mar, 2014 [facility] [place] [facility] [address] [id number] [place] [address]- 2746 Mar, 2014 [facility] [place] [facility] [address] [id number] [place] [address]- 2586 Mar, 2014 [facility] [place] [facility] [address] [id number] [place] [address]- 7763 Mar, 2014 [facility] [place] [facility] [address] [id number] [place] [address]- 8508 Mar, 2014 [facility] [place] [facility] [address] [facility] [id number] [place] [address]- 2196 Mar, 2014 [facility] [place] [facility] [address] [place] [id number] [place] [address]- 0760 Mar, [facility] [place] [facility] [address] [facility] [id number] [place] [address]- 4999 Feb, [facility] [place] [facility] [address] [place] [id number] [place] [address]- 8894 Feb, [facility] [place] [facility] [address] [place] [id number] [place] [address]- 4455 Feb, [facility] [place] [facility] [address] [facility] [id number] [place] [address]- 9649 Feb, [facility] [place] [facility] [address] [facility] [id number], [place] [address] 2545 Feb, [facility] [place] [facility] [address] [facility] [id number] [place] [address]- 3931 Feb, [facility] [place] [facility] [address] [facility] [id number] [place] [address]- 6047 Jan, [facility] [place] [facility] [address] [facility] [id number] [place] 3912 Jan, [facility] [place] [facility] [address] [id number] [place] [address]- 5446 Jan, [facility] [place] [facility] [address] [id number] [place] [address]- 2721 Dec, [facility] [place] [facility] [address] [id number] [place] [address]- 8493 Dec, [facility] [place] [facility] [address] [id number] [place] [address]- 6792 Dec, [facility] [place] [facility] [address] [id number] [place] [address]- 9908 Dec, [facility] [place] [facility] [address] [id number] [place] [address]- 1629 Dec, [facility] [place] [facility] [address] [id number] [place] [address]- 4800 Dec, [facility] [place] [facility] [address] [id number], [place] [address]- 8117 Dec, [facility] [place] [facility] [address] [id number] [place] [address]- 7178 Dec, [facility] [place] [facility] [address] [id number], [place] [address]- 1288 Dec, [facility] [place] [facility] [address] [id number], [place] [address]- 6199 Dec, [facility] [place] [facility] [address] [id number], [place] [address]- 5472 Dec, [facility] [place] [facility] [address] [id number], [place] [address]- 0046 Dec, [facility] [place] [facility] [address] [id number], [place] [address]- 6748 Nov, [facility] [place] [facility] [address] [id number], [place] [address]- 6713 Nov, [facility] [place] [facility] [address] [id number], [place] [address]- 8195 Nov, [facility] [place] [facility] [address] [id number] [place] [address]- 1169 10 Nov, 2013 [facility] [place] [facility] [address] [id number] [place] [address]- 3358 16 Oct, 2013 [facility] [place] [facility] [address] [id number] [place] [address]- 9756 16 Oct, 2013 [facility] [place] [facility] [address] [id number] [place] [address]- 7228 16 Oct, 2013 [facility] [place] [facility] [address] [id number] [place] [address]- 7356 16 Oct, 2013 [facility] [place] [facility] [address] [id number] [place] [address]- 9182 05 Oct, 2013 [facility] [place] [facility] [address] [id number] [place] [address]- 9489 Oct, [facility] [place] [facility] [address] [id number] [place] [address]- 6323 Sep, [facility] [place] [facility] [address] [id number] [place] [address]- 0009 Sep, [facility] [place] [facility] [address] [facility] [id number][place] [address]- 0908 Jul, [facility] [place] [facility] [address] [id number], [place] [address]- 1972 Jul, [facility] [place] [facility] [address] [id number], [place] [address]- 3865 Jul, [facility] [place] [facility] [address] [id number], [place] [address]- 1471 Jul, [facility] [place] [facility] [address] [facility] [id number], [place] [address]- 5110 Jul, [facility] [place] [facility] [address] [id number], [place] [address]- 3201 Jul, [facility] [place] [facility] [address] [id number] [place] [address]- 6628 Jul, [facility] [place] [facility] [address] [id number] [place] [address]- 3703 Jul, [facility] [place] [facility] [address] [id number] [place] [address]20 Jul, [facility] [place] [facility] [address] [id number] [place] [address]- 9742 Jul, [facility] [place] [facility] [address] [id number] [place] [address]- 2992 June, [facility] [place] [facility] [address] [id number] [place] [address]- 9464 June, [facility] [place] [facility] [address] [id number] [place] [address]- 1735 June, [facility] [place] [facility] [address] [id number] [place] [address]- 6637 June, [facility] [place] [facility] [address] [id number] [place] [address]- 7304 June, [facility] [place] [facility] [address] [id number] [place] [address]- 5769 June, [facility] [place] [facility] [address] [id number] [place] [address]- 8682 June, [facility] [place] [facility] [address] [id number] [place] [address]- 2715 June, [facility] [place] [facility] [address] [id number] [place] [address]- 5736 June, [facility] [place] [facility] [address] [id number] [place] [address]- 2056 June, [facility] [place] [facility] [address] [id number] [place] 5040 June, [facility] [place] [facility] [address] [id number] [place] [address]- 2037 June, [facility] [place] [facility] [address] [id number] [place] [address]- 3447 June, [facility] [place] [facility] [address] [id number] [place] [address]- 7446 June, [facility] [place] [facility] [address] [id number] [place] [address]- 3962 May, [facility] [place] [facility] [address] [id number] [place] [address]- 2646 May, [facility] [place] [facility] [address] [id number] [place] [address]- 2863 May, [facility] [place] [facility] [address] [id number] [place] [address]- 2165 May, [facility] [place] [facility] [address] [id number] [place] [address]- 7957 May, [facility] [place] [facility] [address] [id number] [place] [address]- 3076 May, [facility] [place] [facility] [address] [id number] [place] [address]- 8827 May, [facility] [place] [facility] [address] [id number] [place] [address]- 1886 May, [facility] [place] [facility] [address] [id number] [place] [address]- 1513 May, [facility] [place] [facility] [address] [id number] [place] [address]- 1014 May, [facility] [place] [facility] [address] [id number] [place] [address]- 0878 May, [facility] [place] [facility] [address] [id number] [place] [address]- 9659 May, [facility] [place] [facility] [address] [id number] [place] [address]- 1241 May, [facility] [place] [facility] [address] [id number] [place] [address]- 4060 May, [facility] [place] [facility] [address] [id number] [place] [address]- 8286 May, [facility] [place] [facility] [address] [id number] [place] [address]- 9376 Apr, [facility] [place] [facility] [address] [id number] [place] [address]- 6136 Apr, [facility] [place] [facility] [address] [id number] [place] [address]- 2227 Apr, [facility] [place] [facility] [address] [id number] [place] [address]- 6787 Apr, [facility] [place] [facility] [address] [id number] [place] [address]- 9938 Apr, [facility] [place] [facility] [address] [id number] [place] [address]- 5701 Apr, [facility] [place] [facility] [address] [id number] [place] [address]- 0576 Apr, [facility] [place] [facility] [address] [id number] [place] [address]- 5137 Apr, [facility] [place] [facility] [address] [id number] [place] [address]- 5182 Apr, [facility] [place] [facility] [address] [id number] [place] [address]- 5520 Apr, [facility] [place] [facility] [address] [id number] [place] [address]- 2013 Apr, [facility] [place] [facility] [address] [id number] [place] [address]- 6729 Apr, [facility] [place] [facility] [address] [id number] [place] [address]- 5694 Apr, [facility] [place] [facility] [address] [id number] [place] 3265 Apr, [facility] [place] [facility] [address] [id number] [place] [address]- 6637 Apr, [facility] [place] [facility] [address] [id number] [place] [address]- 1259 Apr, [facility] [place] [facility] [address] [id number] [place] [address]- 6397 Apr, [facility] [place] [facility] [address] [id number] [place] [address]- 1684 Apr, [facility] [place] [facility] [address] [id number] [place] [address]- 3857 Mar, [facility] [place] [facility] [address] [id number] [place] [address]- 7214 Mar, [facility] [place] [facility] [address] [id number] [place] [address]- 6156 Mar, [facility] [place] [facility] [address] [id number] [place] [address]- 0295 Mar, [facility] [place] [facility] [address] [id number] [place] [address]- 6051 Mar, [facility] [place] [facility] [address] [id number] [place] [address]- 8245 Mar, [facility] [place] [facility] [address] [id number] [place] [address]- 7960 Mar, [facility] [place] [facility] [address] [id number] [place] [address]- 0008 Mar, [facility] [place] [facility] [address] [id number] [place] [address]- 7572 Mar, [facility] [place] [facility] [address] [id number] [place] [address]- 4330 Mar, [facility] [place] [facility] [address] [id number] [place] [address]- 9496 Feb, [facility] [place] [facility] [address] [id number] [place] [address]- 2555 Feb, [facility] [address] [id number] [place] [address]- 5969 Feb, [facility] [address] [id number] [place] [address]- 8029 Feb, [facility] [address] [id number] [place] [address]- 4929 Feb, [facility] [address] [id number] [place] [address]- 0514 Feb, [facility] [address] [id number] [place] [address]- 7747 Feb, [facility] [address] [id number] [place] [address]- 2200 Feb, [facility] [address] [id number] [place] [address]- 1188 Feb, [facility] [address] [id number] [place] [address]- 8060 Feb, [facility] [address] [id number] [place] [address]- 9088 Feb, [facility] [address] [id number] [place] [address]- 2012 Feb, [facility] [address] [id number] [place] [address]- 5740 Feb, [facility] [address] [id number] [place] [address]- 8300 Jan, [facility] [place] [facility] [address] [id number] [place] [address]- 5660 Jan, [facility] [place] [facility] [address] [id number] [place] [address]- 5027 Nov, [facility] [place] [facility] [address] [id number] [place] [address]- 8880 Nov, [facility] [place] [facility] [address] [id number] [place] [address]- 9905 Nov, [facility] [place] [facility] [address] [id number] [place] [address]- 1105 Nov, [facility] [place] [facility] [address] [id number] [place] [address]- 6943 Nov, [facility] [place] [facility] [address] [id number] [place] [address]- 2909 Oct, [facility] [place] [facility] [address] [id number] [place] [address]- 8354 Oct, [facility] [place] [facility] [address] [id number] [place] [address]- 3625 Oct, [facility] [place] [facility] [address] [id number] [place] [address]- 4219 Oct, [facility] [place] [facility] [address] [id number] [place] [address]- 9694 Oct, [facility] [place] [facility] [address] [id number] [place] [address]- 9102 Sep, [facility] [place] [facility] [address] [id number] [place] [address]- 7482 Sep, [facility] [place] [facility] [address] [id number] [place] [address]- 6678 Sep, [facility] [place] [facility] [address] [id number], [place] [address]- 2674 Sep, [facility] [place] [facility] [address] [id number] [place] [address] Sep, [facility] [place] [facility] [address] [id number] [place] [address] Sep, [facility] [place] [facility] [address] [id number], [place] [address] Sep, [facility] [place] [facility] [address] [id number], [place] [address] Aug, [facility], [place] [id number] [address] Aug, [facility], [place] [id number], [place] [address] Jul, [facility], [place] [id number], [place] [address] Jul, [facility], [place] [id number], [place] [address] June, [facility], [place] [id number], [place] [address] June, [facility], [place] [id number], [place] [address] June, [facility], [place] [id number], [place] [address] Apr, [facility], [place] [id number], [place] [address] Feb, [facility], [place] [id number], [place] [address] Feb, [facility], [place] [id number], [place] [address] Feb, [facility], [place] [id number], [place] [address] Feb, IMMUNIZATIONS No Known Immunizations SOCIAL HISTORY Never Assessed REASON FOR VISIT [facility] VITAL SIGNS MEDICATIONS Medication Instructions Dosage Frequency Start Date End Date Duration Status Lisinopril 40 mg Orally Once a day 1 tablet 24h 30 days Active RESULTS No Results PROCEDURES No Known procedures INSTRUCTIONS MEDICATIONS ADMINISTERED No Known Medications MEDICAL (GENERAL) HISTORY Type Description Date Medical History epilepsy and recurrent seizures Medical History bipolar disorder Medical History neurologic disorder-neuropathy Surgical History back surgery 2013
--- OUTSIDE RECORDS SUMMARY | 2018-05-01 12:36 | XMS REPORT ---
Author Author DARRYL ERIKA [facility] Address [address] [place] [address] Care Team Providers Care Lingo Cleaner Name Role Phone DARRYLGER REYNAGAY Unavailable PROBLEMS Type Condition ICD9-CM Code MJD35-WQ Code Onset Dates Condition Status SNOMED Code Problem Bipolar I disorder, most recent episode (or current) depressed F31.30 Active 40784096 Problem Lumbar canal stenosis M48.06 Active 26045123 Problem Benign essential hypertension I10 Active 1000290 Problem Other epilepsy without status epilepticus, not intractable G40.802 Active 940551862 Problem Hereditary and idiopathic peripheral neuropathy G60.9 Active 586317518 Problem Migraine without aura and without status migrainosus, not intractable G43.009 Active 315963570 Problem Raynauds disease without gangrene I73.00 Active 909099793 ALLERGIES No Information ENCOUNTERS Encounter Location Date Diagnosis [place] [address] [address] Aug, [place] [address] [address]- [address]131 Aug, Benign essential hypertension I10 and Other epilepsy without status epilepticus, not intractable G40.802 [place] [address] [place] [id number] [place] [address]21- 7659 Jul, Other epilepsy without status epilepticus, not intractable G40.802 [place] [address] [address]- [address] Mar, Benign essential hypertension I10 and Other epilepsy without status epilepticus, not intractable G40.802 [place] [address] [place] [id number] [place] [address] 02839- 1367 Feb, Benign essential hypertension I10 [place] [address] [place] [address] 6773 Dec, Benign essential hypertension I10 [place] [address] [place] [id number] [place] [address] 14103- 1905 Sep, Lumbar canal stenosis M48.06 [place] [address] [place] [id number] [place] [address] 78882- 2854 Sep, [place] [address] [address]- 0505 Sep, Elevated lymphocytes D72.820 [place] [address] 87896- 3146 Sep, [place] [address] [address]- 3278 Aug, Bipolar I disorder, most recent episode (or current) depressed F31.30 [place] [address] 91074- 2765 Aug, Other epilepsy without status epilepticus, not intractable G40.802 ; Benign essential hypertension I10 ; Bipolar I disorder, most recent episode (or current) depressed F31.30 ; Hereditary and idiopathic peripheral neuropathy G60.9 ; Lumbar canal stenosis M48.06 and Elevated ALT measurement R74.0 [place] [address] [place] [id number] [place] [address] 36700- 7935 Aug, [place] [address] [place] [id number] [place] [address] 46869- 1104 Aug, [place] [address] [place] [id number] [place] [address] 51167- 1603 May, Benign essential hypertension I10 [place] [address] [place] [id number] [place] [address] 28813- 3177 Dec, Nondisplaced fracture of base of fifth metacarpal bone of right hand, initial encounter S62.346A [place] [address] [place] [id number] [place] [address] 54395- 6177 Dec, Numbness of right hand R20.0 ; Right hand pain M79.641 ; Right wrist pain M25.531 and Closed nondisplaced fracture of base of fifth metacarpal bone of right hand, initial encounter S62.346A [place] [address] [place] [id number] [place] [address] 95743- 9790 Oct, [place] [address] [place] [id number] [place] [address] 84123- 4784 Sep, [place] [address] 83553- 2818 Jul, Benign essential hypertension I10 ; Hyperlipidemia, unspecified hyperlipidemia type E78.5 and Elevated ALT measurement R74.0 [place] [address] [place] [id number] [place] [address] 17441- 9770 Jul, Bipolar I disorder, most recent episode (or current) depressed F31.30 [place] [address] 70812- 4159 Jul, Benign essential hypertension I10 [place] [address] [place] [id number] [place] [address] 24900- 7693 Jul, [place] [address] [place] [id number] [place] [address] 51256- 6816 June, Benign essential hypertension I10 ; Bipolar I disorder, most recent episode (or current) depressed F31.30 ; Lumbar canal stenosis M48.06 and Other epilepsy without status epilepticus, not intractable G40.802 [place] [address] [place] [id number] [place] [address] 95088- 5929 Feb, [place] [address] [place] [id number] [place] [address] 11807- 6459 Feb, [place] [address] [place] [id number] [place] [address] 21496- 9043 Nov, [place] [address] [place] [id number] [place] [address] 73686- 4206 Oct, [place] [address] [id number] [address] 12[address] Oct, [facility] [address] [facility] [id number] [place] [address] 2397 Oct, [facility] [address] [facility] [id number] [place] [address]- 3910 Oct, Lumbar radiculopathy 724.4 ; Lumbar spinal stenosis 724.02 and Constipation 564.00 [facility] [address] [id number] [place] [address]- 6524 Sep, [facility] [address] [facility] [id number] [place] [address] 85742- 1204 Sep, [facility] [address] [facility] [id number] [place] [address]- 9784 Aug, Lumbar radiculopathy 724.4 [facility] [address] [facility] [id number] [place] [address] 11209- 2777 Aug, [facility] [address] [facility] [id number] [place] [address]- 0583 Aug, Hamstring strain 843.8 [facility] [address] [facility] [id number] [place] [address]- 7228 Jul, [facility] [address] [place] [id number] [address]- 1669 Jul, [facility] [address] [facility] [id number] [place] [address]- 8729 14 May, 2014 [facility] [address] [facility] [id number] [place] [address]- 4317 13 May, 2014 [facility] [address] [facility] [id number] [place] [address]- 6588 16 Apr, 2014 [facility] [address] [facility] [id number] [place] [address]- 6179 16 Apr, 2014 [facility] [address] [facility] [id number] [place] [address]- 9389 Mar, 2014 [facility] [place] [facility] [address] [id number] [place] [address]- 6936 Mar, 2014 [facility] [place] [facility] [address] [id number] [place] [address]- 8666 Mar, 2014 [facility] [place] [facility] [address] [id number] [place] [address]- 0566 Mar, 2014 [facility] [place] [facility] [address] [id number] [place] [address]- 4347 Mar, 2014 [facility] [place] [facility] [address] [id number] [place] [address]- 7184 Mar, 2014 [facility] [place] [facility] [address] [facility] [id number] [place] [address]- 9067 Mar, 2014 [facility] [place] [facility] [address] [facility] [id number] [place] [address]- 1786 Mar, 2014 [facility] [place] [facility] [address] [facility] [id number] [place] [address]- 5377 Mar, [facility] [place] [facility] [address] [facility] [id number] [place] [address]- 7861 Mar, 2014 [facility] [place] [facility] [address] [facility] [id number] [place] [address]- 4869 Mar, [facility] [place] [facility] [address] [facility] [id number] [place] [address]- 7182 Mar, 2014 [facility] [place] [facility] [address] [facility] [id number] [place] [address]- 3975 Feb, [facility] [place] [facility] [address] [id number] [place] [address]- 4707 Feb, [facility] [place] [facility] [address] [facility] [id number] [place] [address]- 6716 Feb, [facility] [place] [facility] [address] [facility] [id number] [place] [address]- 0322 Feb, [facility] [place] [facility] [address] [id number] [place] [address]- 8733 Feb, [facility] [place] [facility] [address] [id number] [place] [address]- 3698 Feb, [facility] [place] [facility] [address] [id number] [place] [address]- 6717 Jan, [facility] [place] [facility] [address] [id number] [place] [address]- 8030 Jan, [facility] [place] [facility] [address] [id number] [place] [address]- 9879 Jan, [facility] [place] [facility] [address] [id number] [place] [address]- 6187 Dec, [facility] [place] [facility] [address] [id number] [place] [address]- 0573 Dec, [facility] [place] [facility] [address] [id number] [place] [address]- 0802 Dec, [facility] [place] [facility] [address] [id number] [place] [address]- 8204 Dec, [facility] [place] [facility] [address] [id number] [place] [address]- 2892 Dec, [facility] [place] [facility] [address] [id number] [place] [address]- 6569 Dec, [facility] [place] [facility] [address] [id number] [place] [address]- 7896 Dec, [facility] [place] [facility] [address] [id number] [place] [address]- 3629 Dec, [facility] [place] [facility] [address] [id number] [place] [address]- 7027 Dec, [facility] [place] [facility] [address] [id number] [place] [address]- 2674 Dec, [facility] [place] [facility] [address] [id number] [place] [address]- 2937 Dec, [facility] [place] [facility] [address] [id number] [place] [address]- 5796 Dec, [facility] [place] [facility] [address] [id number] [place] [address]- 0426 Nov, [facility] [place] [facility] [address] [id number] [place] [address]- 2750 Nov, [facility] [place] [facility] [address] [id number] [place] [address]- 0240 Nov, [facility] [place] [facility] [address] [id number] [place] [address]- 4749 Nov, [facility] [place] [facility] [address] [id number] [place] [address]- 0049 16 Oct, 2013 [facility] [place] [facility] [address] [id number] [place] [address]- 6760 16 Oct, 2013 [facility] [place] [facility] [address] [id number] [place] [address]- 7177 16 Oct, 2013 [facility] [place] [facility] [address] [id number] [place] [address]- 0679 16 Oct, 2013 [facility] [place] [facility] [address] [facility] [id number] [place] [address]- 8909 05 Oct, 2013 [facility] [place] [facility] [address] [id number] [place] [address]- 7837 05 Oct, 2013 [facility] [place] [facility] [address] [id number] [place] [address]- 8873 Sep, [facility] [place] [facility] [address] [id number] [place] [address]- 5166 Sep, [facility] [place] [facility] [address] [id number] [place] [address]- 9681 Jul, [facility] [place] [facility] [address] [id number] [place] [address]- 9451 Jul, [facility] [place] [facility] [address] [id number] [place] [address]- 8105 Jul, [facility] [place] [facility] [address] [id number] [place] [address]- 0753 Jul, [facility] [place] [facility] [address] [id number] [place] [address]- 1542 Jul, [facility] [place] [facility] [address] [id number] [place] [address]- 6172 Jul, [facility] [place] [facility] [address] [id number] [place] [address]- 2325 Jul, [facility] [place] [facility] [address] [id number] [place] [address]- 8281 Jul, [facility] [place] [facility] [address] [id number] [place] [address]- 2588 Jul, [facility] [place] [facility] [address] [id number] [place] [address]- 7282 Jul, [facility] [place] [facility] [address] [id number] [place] [address]- 0124 June, [facility] [place] [facility] [address] [id number] [place] [address]- 0064 June, [facility] [place] [facility] [address] [id number] [place] [address]- 5136 June, [facility] [place] [facility] [address] [id number] [place] [address]- 2925 June, [facility] [place] [facility] [address] [id number] [place] [address]- 1385 June, [facility] [place] [facility] [address] [id number] [place] [address]- 0490 June, [facility] [place] [facility] [address] [id number] [place] [address]- 5583 June, [facility] [place] [facility] [address] [id number] [place] [address]- 4018 June, [facility] [place] [facility] [address] [id number] [place] [address]- 2509 June, [facility] [place] [facility] [address] [id number] [place] [address]- 4277 June, [facility] [place] [facility] [address] [id number] [place] [address]- 1102 June, [facility] [place] [facility] [address] [id number] [place] [address]- 3357 June, [facility] [place] [facility] [address] [id number] [place] [address]- 2255 June, [facility] [place] [facility] [address] [id number] [place] [address]- 5242 June, [facility] [place] [facility] [address] [id number] [place] [address]- 5859 May, [facility] [place] [facility] [address] [id number] [place] [address]- 2305 May, [facility] [place] [facility] [address] [id number] [place] [address]- 5778 May, [facility] [place] [facility] [address] [id number] [place] [address]- 0466 May, [facility] [place] [facility] [address] [id number] [place] [address]- 8215 May, [facility] [place] [facility] [address] [id number] [place] [address]- 8389 May, [facility] [place] [facility] [address] [id number] [place] [address]- 7447 May, [facility] [place] [facility] [address] [id number] [place] [address]- 0392 May, [facility] [place] [facility] [address] [id number] [place] [address]- 8085 May, [facility] [place] [facility] [address] [id number] [place] [address]- 9848 May, [facility] [address] [id number] [place] [address]- 6365 May, [facility] [place] [facility] [address] [id number] [place] [address]- 9396 May, [facility] [address] [id number] [place] [address]- 8338 May, [facility] [place] [facility] [address] [id number] [place] [address]- 6155 May, [facility] [place] [facility] [address] [id number] [place] [address]- 7585 May, [facility] [place] [facility] [address] [id number] [place] [address]- 4426 Apr, [facility] [place] [facility] [address] [id number] [place] [address]- 9131 Apr, [facility] [address] [id number] [place] [address]- 2979 Apr, [facility] [place] [facility] [address] [id number] [place] [address]- 2004 Apr, [facility] [address] [id number] [place] [address]- 0092 Apr, [facility] [place] [facility] [address] [id number] [place] [address]- 5254 Apr, [facility] [place] [facility] [address] [id number] [place] [address]- 9983 Apr, [facility] [place] [facility] [address] [id number] [place] [address]- 8843 Apr, [facility] [place] [facility] [address] [id number] [place] [address]- 7494 Apr, [facility] [place] [facility] [address] [id number] [place] [address]- 1071 Apr, [facility] [place] [facility] [address] [id number] [place] [address]- 1350 Apr, [facility] [place] [facility] [address] [id number] [place] [address]- 4370 Apr, [facility] [place] [facility] [address] [id number] [place] [address]- 0666 Apr, [facility] [place] [facility] [address] [id number] [place] [address]- 8603 Apr, [facility] [place] [facility] [address] [id number] [place] [address]- 8079 Apr, [facility] [place] [facility] [address] [id number] [place] [address]- 0696 Apr, [facility] [place] [facility] [address] [id number] [place] [address]- 7084 Apr, [facility] [place] [facility] [address] [id number] [place] [address]- 2156 Apr, [facility] [place] [facility] [address] [id number] [place] [address]- 0450 Mar, [facility] [place] [facility] [address] [id number] [place] [address]- 7124 Mar, [facility] [place] [facility] [address] [id number] [place] [address]- 8442 Mar, [facility] [place] [facility] [address] [id number] [place] [address]- 7274 Mar, [facility] [place] [facility] [address] [id number] [place] [address]- 4128 Mar, [facility] [place] [facility] [address] [id number] [place] [address]- 8218 Mar, [facility] [place] [facility] [address] [id number] [place] [address]- 1886 Mar, [facility] [place] [facility] [address] [id number] [place] [address]- 1074 12 Mar, 2013 [facility] [address] [id number] [place] [address]- 8420 Mar, [facility] [place] [facility] [address] [id number] [place] [address]- 0406 Mar, [facility] [address] [id number] [place] [address]- 4810 Feb, [facility] [place] [facility] [address] [id number] [place] [address]- 1010 Feb, [facility] [address] [id number] [place] [address]- 1859 Feb, [facility] [place] [facility] [address] [id number] [place] [address]- 6593 Feb, [facility] [place] [facility] [address] [id number] [place] [address]- 7185 Feb, [facility] [address] [id number] [place] [address]- 5250 Feb, [facility] [place] [facility] [address] [id number] [place] [address]- 3239 Feb, [facility] [address] [id number] [place] [address]- 7935 Feb, [facility] [place] [facility] [address] [id number] [place] [address]- 7491 Feb, [facility] [place] [facility] [address] [id number] [place] [address]- 8054 Feb, [facility] [place] [facility] [address] [id number] [place] [address]- 9481 Feb, [facility] [place] [facility] [address] [id number] [place] [address]- 3521 Feb, [facility] [place] [facility] [address] [id number] [place] [address]- 8726 Feb, [facility] [place] [facility] [address] [id number] [place] [address]- 6857 Jan, [facility] [place] [facility] [address] [id number] [place] [address]- 3172 Jan, [facility] [place] [facility] [address] [id number] [place] [address]- 8511 Nov, [facility] [place] [facility] [address] [id number] [place] [address]- 2310 Nov, [facility] [place] [facility] [address] [id number] [place] [address]- 1811 Nov, [facility] [place] [facility] [address] [id number] [place] [address]- 4354 Nov, [facility] [place] [facility] [address] [id number] [place] [address]- 3664 Nov, [facility] [place] [facility] [address] [id number] [place] [address]- 8275 Oct, [facility] [place] [facility] [address] [id number] [place] [address]- 0552 Oct, [facility] [place] [facility] [address] [id number] [place] [address]- 0292 Oct, [facility] [place] [facility] [address] [id number] [place] [address]- 0757 Oct, [facility] [place] [facility] [address] [id number] [place] [address]- 6766 Oct, [facility] [place] [facility] [address] [id number] [place] [address]- 7516 Sep, [facility] [place] [facility] [address] [id number] [place] [address]- 7556 Sep, [facility] [place] [facility] [address] [id number] [place] [address]- 7644 Sep, [facility] [place] [facility] [address] [id number] [place] [address]- 2554 Sep, [facility] [address] [facility] [id number] [place] [address]- 1130 Sep, [facility] [address] [facility] [id number] [place] [address]- 1496 Sep, [facility] [id number] [place] [address]- 5906 Sep, [facility] [address] [facility] [id number] [place] [address] Aug, [facility] [id number] [place] [address] Aug, [facility] [address] [id number] [place] [address] Jul, [facility] [id number] [address] Jul, [facility] [id number] [place] [address] June, [facility] [id number] [address] June, [facility] [id number] [address] June, [facility] [id number] [address] Apr, [facility] [address] [id number] [place] [address] Feb, [facility] [id number] [address] Feb, [facility] [address] [facility] [id number] [place] [address] Feb, [facility] [id number] [address] Feb, IMMUNIZATIONS No Known Immunizations SOCIAL HISTORY Never Assessed REASON FOR VISIT Referral needed PLAN OF CARE VITAL SIGNS MEDICATIONS Medication Instructions Dosage Frequency Start Date End Date Duration Status Gabapentin 800 MG Orally Three times a day 1 tablet 8h 30 days Active RESULTS No Results PROCEDURES No Known procedures INSTRUCTIONS MEDICATIONS ADMINISTERED No Known Medications MEDICAL (GENERAL) HISTORY Type Description Date Medical History epilepsy and recurrent seizures Medical History bipolar disorder Medical History neurologic disorder-neuropathy Surgical History back surgery 2013
--- OUTSIDE RECORDS SUMMARY | 2018-05-01 12:36 | XMS REPORT ---
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 Name Role Phone MEEK COTTON Unavailable PROBLEMS Type Condition ICD9-CM Code FOC46-BO Code Onset Dates Condition Status SNOMED Code Problem Bipolar I disorder, most recent episode (or current) depressed F31.30 Active 33145786 Problem Lumbar canal stenosis M48.06 Active 26490084 Problem Benign essential hypertension I10 Active 1996800 Problem Other epilepsy without status epilepticus, not intractable G40.802 Active 263463454 Problem Hereditary and idiopathic peripheral neuropathy G60.9 Active 491789625 Problem Migraine without aura and without status migrainosus, not intractable G43.009 Active 738983643 Problem Raynauds disease without gangrene I73.00 Active 782051833 ALLERGIES No Information ENCOUNTERS Encounter Location Date Diagnosis [place] [address] [address] Aug, [place] [address] [address]- 2788 Aug, Benign essential hypertension I10 and Other epilepsy without status epilepticus, not intractable G40.802 [place] [address] [address]- [address] Jul, Other epilepsy without status epilepticus, not intractable G40.802 [place] [address] [place] [id number] [place] [address] 74209- 9077 Mar, Benign essential hypertension I10 and Other epilepsy without status epilepticus, not intractable G40.802 [place] [address] [address]- 6324 Feb, Benign essential hypertension I10 [place] [address] 30963- 4877 Dec, Benign essential hypertension I10 [facility] [address] [place] [id number] [place] [address] 06697- 3433 Sep, Lumbar canal stenosis M48.06 [facility] [address] [place] [id number] [place] [address] 22969- 9555 Sep, [facility] [address] [place] [id number] [place] [address] 33956- 7899 Sep, Elevated lymphocytes D72.820 [place] [address] [place] [id number] [place] [address] 08069- 3746 Sep, [place] [address] [place] [id number] [place] [address] 37508- 8489 Aug, Bipolar I disorder, most recent episode (or current) depressed F31.30 [place] [address] [place] [id number] [place] [address] 82622- 1939 Aug, Other epilepsy without status epilepticus, not intractable G40.802 ; Benign essential hypertension I10 ; Bipolar I disorder, most recent episode (or current) depressed F31.30 ; Hereditary and idiopathic peripheral neuropathy G60.9 ; Lumbar canal stenosis M48.06 and Elevated ALT measurement R74.0 [facility] [id number] [place] [address] 08418- 1111 Aug, [place] [address] [place] [id number] [place] [address] 69998- 9033 Aug, [facility] [id number] [place] [address] 18446- 7596 May, Benign essential hypertension I10 [place] [address] [place] [id number] [place] [address] 34526- 7845 Dec, Nondisplaced fracture of base of fifth metacarpal bone of right hand, initial encounter S62.346A [place] [id number] [place] [address] 82528- 7970 Dec, Numbness of right hand R20.0 ; Right hand pain M79.641 ; Right wrist pain M25.531 and Closed nondisplaced fracture of base of fifth metacarpal bone of right hand, initial encounter S62.346A [place] [address] [place] [id number] [place] [address] 09337- 6529 Oct, [place] [address] [place] [id number] [place] [address] 72071- 5648 Sep, [place] [address] 15508- 4472 Jul, Benign essential hypertension I10 ; Hyperlipidemia, unspecified hyperlipidemia type E78.5 and Elevated ALT measurement R74.0 [place] [address] 49494- 2738 Jul, Bipolar I disorder, most recent episode (or current) depressed F31.30 [place] [address] 19316- 1808 Jul, Benign essential hypertension I10 [place] [address] [place] [id number] [place] [address] 47206- 4487 Jul, [place] [address] [place] [id number] [place] [address] 12392- 4416 June, Benign essential hypertension I10 ; Bipolar I disorder, most recent episode (or current) depressed F31.30 ; Lumbar canal stenosis M48.06 and Other epilepsy without status epilepticus, not intractable G40.802 [place] [address] [place] [id number] [place] [address] 30528- 6375 Feb, [place] [address] [place] [id number] [place] [address] 74360- 6600 Feb, [place] [address] 62210- 2262 Nov, [place] [address] [place] [id number] [place] [address] 27997- 7660 Oct, [place] [address] [place] [address]- 7616 Oct, [facility] [address] [facility] [id number], [place] [address] Oct, [facility] [address] [facility] [id number], [place] [address] 2546 Oct, Lumbar radiculopathy 724.4 ; Lumbar spinal stenosis 724.02 and Constipation 564.00 [facility] [address] [facility] [id number], [place] [address]- 0342 Sep, [facility] [address] [facility] [id number], [place] [address]- 2327 Sep, [facility] [address] [id number] [address]- 0250 Aug, Lumbar radiculopathy 724.4 [facility] [address] [address]- 0376 Aug, [facility] [address] [address]- 1656 Aug, Hamstring strain 843.8 [facility] [address] [id number] [address]- 3525 Jul, [facility] [address] [id number], [place] [address]- 8819 Jul, [facility] [address] [address]- 6222 14 May, 2014 [facility] [address] [facility] [id number], [place] [address] 254 13 May, 2014 [facility] [address] [facility] [id number], [place] [address] 2546 16 Apr, 2014 [facility] [address] [facility] [id number], [place] [address] 2544 16 Apr, 2014 [facility] [address] [facility] [id number], [place] [address]- 9399 Mar, 2014 [facility] [place] [facility] [address] [id number] [place] [address]- 9562 Mar, 2014 [facility] [place] [facility] [address] [id number] [place] 2266 Mar, 2014 [facility] [place] [facility] [address] [facility] [id number] [place] [address]- 2626 Mar, 2014 [facility] [place] [facility] [address] [id number] [place] [address]- 9544 Mar, 2014 [facility] [place] [facility] [address] [id number] [place] [address]- 3886 Mar, 2014 [facility] [place] [facility] [address] [facility] [id number] [place] [address]- 5770 Mar, 2014 [facility] [place] [facility] [address] [facility] [id number] [place] [address]- 8361 Mar, 2014 [facility] [place] [facility] [address] [facility] [id number] [place] [address]- 5508 Mar, 2014 [facility] [place] [facility] [address] [facility] [id number] [place] [address]- 1649 Mar, 2014 [facility] [place] [facility] [address] [facility] [id number] [place] [address]- 6437 Mar, 2014 [facility] [place] [facility] [address] [facility] [id number] [place] [address]- 2678 Mar, 2014 [facility] [place] [facility] [address] [facility] [id number], [place] [address]- 5238 Feb, [facility] [place] [facility] [address] [facility] [id number] [place] [address]- 1610 Feb, [facility] [place] [facility] [address] [facility] [id number] [place] [address]- 9412 Feb, [facility] [place] [facility] [address] [facility] [id number], [place] [address]- 8868 Feb, [facility] [place] [facility] [address] [id number] [place] [address]- 5362 Feb, [facility] [place] [facility] [address] [id number] [place] [address]- 3088 Feb, [facility] [place] [facility] [address] [id number] [place] [address]- 7239 Jan, [facility] [place] [facility] [address] [id number] [place] [address]- 1524 Jan, [facility] [place] [facility] [address] [id number] [place] [address]- 5805 Jan, [facility] [place] [facility] [address] [id number] [place] [address]- 9201 Dec, [facility] [place] [facility] [address] [id number] [place] [address]- 7831 Dec, [facility] [place] [facility] [address] [id number] [place] [address]- 2386 Dec, [facility] [place] [facility] [address] [id number] [place] [address]- 1441 Dec, [facility] [place] [facility] [address] [id number] [place] [address]- 9639 Dec, [facility] [place] [facility] [address] [id number] [place] [address]- 3499 Dec, [facility] [place] [facility] [address] [id number] [place] [address]- 6872 Dec, [facility] [place] [facility] [address] [id number] [place] [address]- 9854 Dec, [facility] [place] [facility] [address] [id number] [place] [address]- 0424 Dec, [facility] [place] [facility] [address] [id number] [place] [address]- 4100 Dec, [facility] [place] [facility] [address] [id number] [place] [address]- 3969 Dec, [facility] [place] [facility] [address] [id number] [place] [address]- 5367 Dec, [facility] [place] [facility] [address] [id number] [place] [address]- 7577 Nov, [facility] [place] [facility] [address] [id number] [place] [address]- 3178 Nov, [facility] [place] [facility] [address] [id number] [place] [address]- 9804 Nov, [facility] [place] [facility] [address] [id number] [place] [address]- 7639 Nov, [facility] [place] [facility] [address] [id number] [place] [address]- 5744 16 Oct, 2013 [facility] [place] [facility] [address] [id number] [place] [address]- 7407 16 Oct, 2013 [facility] [place] [facility] [address] [id number] [place] [address]- 9604 16 Oct, 2013 [facility] [place] [facility] [address] [id number] [place] [address]- 0495 16 Oct, 2013 [facility] [place] [facility] [address] [id number] [place] [address]- 8505 05 Oct, 2013 [facility] [place] [facility] [address] [id number] [place] [address]- 4351 05 Oct, 2013 [facility] [place] [facility] [address] [id number] [place] [address]- 6985 Sep, [facility] [place] [facility] [address] [id number] [place] [address]- 1441 Sep, [facility] [place] [facility] [address] [id number] [place] [address]- 2791 Jul, [facility] [place] [facility] [address] [id number] [place] [address]- 1033 Jul, [facility] [place] [facility] [address] [id number] [place] [address]- 0552 Jul, [facility] [place] [facility] [address] [id number] [place] [address]- 6011 Jul, [facility] [place] [facility] [address] [id number] [place] [address]- 1642 Jul, [facility] [place] [facility] [address] [id number] [place] [address]- 6703 Jul, [facility] [place] [facility] [address] [id number] [place] [address]- 0771 Jul, [facility] [place] [facility] [address] [id number] [place] [address]- 1954 Jul, [facility] [place] [facility] [address] [id number] [place] [address]- 0136 Jul, [facility] [place] [facility] [address] [id number] [place] [address]- 8878 Jul, [facility] [place] [facility] [address] [id number] [place] [address]- 2193 June, [facility] [place] [facility] [address] [id number] [place] [address]- 4358 June, [facility] [place] [facility] [address] [id number] [place] [address]- 8958 June, [facility] [place] [facility] [address] [id number] [place] [address]- 9837 June, [facility] [place] [facility] [address] [id number] [place] [address]- 3406 June, [facility] [place] [facility] [address] [id number] [place] [address]- 7540 June, [facility] [place] [facility] [address] [id number] [place] [address]- 6758 June, [facility] [place] [facility] [address] [id number] [place] [address]- 7808 June, [facility] [place] [facility] [address] [id number] [place] [address]- 9256 June, [facility] [place] [facility] [address] [id number] [place] [address]- 0344 June, [facility] [place] [facility] [address] [id number] [place] [address]- 9145 June, [facility] [place] [facility] [address] [id number] [place] [address]- 3928 June, [facility] [place] [facility] [address] [id number] [place] [address]- 6651 June, [facility] [place] [facility] [address] [id number] [place] [address]- 0021 June, [facility] [place] [facility] [address] [id number] [place] [address]- 6161 May, [facility] [place] [facility] [address] [id number] [place] [address]- 4963 May, [facility] [place] [facility] [address] [id number] [place] [address]- 2359 May, [facility] [place] [facility] [address] [id number] [place] [address]- 4858 May, [facility] [place] [facility] [address] [id number] [place] [address]- 8975 May, [facility] [place] [facility] [address] [id number] [place] [address]- 8151 May, [facility] [place] [facility] [address] [id number] [place] [address]- 1422 May, [facility] [place] [facility] [address] [id number] [place] [address]- 1962 May, [facility] [place] [facility] [address] [id number] [place] [address]- 6573 May, [facility] [place] [facility] [address] [id number] [place] [address]- 3971 May, [facility] [place] [facility] [address] [id number] [place] [address]- 5803 May, [facility] [place] [facility] [address] [id number] [place] [address]- 0693 May, [facility] [place] [facility] [address] [id number] [place] [address]- 0717 May, [facility] [place] [facility] [address] [id number] [place] [address]- 6438 May, [facility] [place] [facility] [address] [id number] [place] [address]- 0381 May, [facility] [place] [facility] [address] [id number] [place] [address]- 5024 Apr, [facility] [place] [facility] [address] [id number] [place] [address]- 2242 Apr, [facility] [place] [facility] [address] [id number] [place] [address]- 8770 Apr, [facility] [place] [facility] [address] [id number] [place] [address]- 1144 Apr, [facility] [place] [facility] [address] [id number] [place] [address]- 0059 Apr, [facility] [place] [facility] [address] [id number] [place] [address]- 9514 Apr, [facility] [place] [facility] [address] [id number] [place] [address]- 8729 Apr, [facility] [place] [facility] [address] [id number] [place] [address]- 1656 Apr, [facility] [place] [facility] [address] [id number] [place] [address]- 6361 Apr, [facility] [place] [facility] [address] [id number] [place] [address]- 3866 Apr, [facility] [place] [facility] [address] [id number] [place] [address]- 2434 08 Apr, 2013 [facility] [place] [facility] [address] [id number] [place] [address]- 8233 Apr, [facility] [place] [facility] [address] [id number] [place] [address]- 3697 Apr, [facility] [place] [facility] [address] [id number] [place] [address]- 9787 Apr, [facility] [place] [facility] [address] [id number] [place] [address]- 9463 Apr, [facility] [place] [facility] [address] [id number] [place] [address]- 8666 Apr, [facility] [place] [facility] [address] [facility] [id number] [place] [address]- 4620 Apr, [facility] [place] [facility] [address] [id number] [place] [address]- 4782 Apr, [facility] [place] [facility] [address] [id number] [place] [address]- 0196 Mar, [facility] [place] [facility] [address] [id number] [place] [address]- 9626 Mar, [facility] [place] [facility] [address] [facility] [id number] [place] [address]- 4478 Mar, [facility] [place] [facility] [address] [id number] [place] [address]- 5796 Mar, [facility] [place] [facility] [address] [id number] [place] [address]- 1844 Mar, [facility] [place] [facility] [address] [id number] [place] [address]- 2101 Mar, [facility] [place] [facility] [address] [facility] [id number] [place] [address]- 8625 Mar, [facility] [place] [facility] [address] [id number], [place] [address]- 6743 Mar, [facility] [place] [facility] [address] [id number] [place] [address]- 4309 Mar, [facility] [place] [facility] [address] [id number] [place] [address]- 9442 Mar, [facility] [place] [facility] [address] [id number] [place] [address]- 5814 Feb, [facility] [place] [facility] [address] [id number] [place] [address]- 2139 Feb, [facility] [place] [facility] [address] [id number] [place] [address]- 0201 Feb, [facility] [place] [facility] [address] [id number] [place] [address]- 3354 Feb, [facility] [place] [facility] [address] [id number] [place] [address]- 0912 Feb, [facility] [place] [facility] [address] [id number] [place] [address]- 4300 Feb, [facility] [place] [facility] [address] [id number] [place] [address]- 1573 Feb, [facility] [place] [facility] [address] [id number] [place] [address]- 8708 Feb, [facility] [place] [facility] [address] [id number] [place] [address]- 8775 Feb, [facility] [place] [facility] [address] [id number] [place] [address]- 0498 Feb, [facility] [place] [facility] [address] [id number] [place] [address]- 7197 Feb, [facility] [place] [facility] [address] [id number] [place] [address]- 0319 Feb, [facility] [place] [facility] [address] [id number] [place] [address]- 1339 Feb, [facility] [place] [facility] [address] [id number] [place] [address]- 8907 Jan, [facility] [place] [facility] [address] [id number] [place] [address]- 6974 Jan, [facility] [place] [facility] [address] [id number] [place] [address]- 7618 Nov, [facility] [place] [facility] [address] [id number] [place] [address]- 4263 Nov, [facility] [place] [facility] [address] [id number] [place] [address]- 9812 Nov, [facility] [place] [facility] [address] [id number] [place] [address]- 0796 Nov, [facility] [place] [facility] [address] [id number] [place] [address]- 9633 Nov, [facility] [place] [facility] [address] [id number] [place] [address]- 0602 Oct, [facility] [place] [facility] [address] [id number] [place] [address]- 6555 Oct, [facility] [place] [facility] [address] [id number] [place] [address]- 9541 Oct, [facility] [place] [facility] [address] [id number] [place] [address] Oct, [facility] [place] [facility] [address] [id number] [place] [address] Oct, [facility] [place] [facility] [address] [id number] [place] [address] Sep, [facility] [place] [facility] [address] [id number] [place] [address] Sep, [facility] [place] [facility] [address] [id number] [place] [address] Sep, [facility] [place] [facility] [address] [id number], [place] [address] Sep, [facility] [address] [facility] [id number] [place] [address] Sep, [facility] [address] [facility] [id number] [place] [address] Sep, [facility] [address] [facility] [id number] [place] [address] Sep, [facility] [address] [id number] [place] [address] Aug, [facility] [address] [id number] [place] [address] Aug, [facility] [address] [facility] [id number] [place] [address] Jul, [facility] [address] [facility] [id number] [place] [address] Jul, [facility] [address] [facility] [id number] [place] [address] June, [facility] [address] [facility] [id number], [place] [address] June, [facility] [address] [facility] [id number], [place] [address] June, [facility] [address] [facility] [id number], [place] [address] Apr, [facility] [address] [facility] [id number], [place] [address] Feb, [facility] [address] [facility] [id number], [place] [address] Feb, [facility] [address] [facility] [id number], [place] [address] Feb, [facility] [address] [facility] [id number], [place] [address] Feb, IMMUNIZATIONS No Known Immunizations SOCIAL HISTORY Never Assessed REASON FOR VISIT Requests return call PLAN OF CARE VITAL SIGNS MEDICATIONS Unknown Medications RESULTS No Results PROCEDURES No Known procedures INSTRUCTIONS MEDICATIONS ADMINISTERED No Known Medications MEDICAL (GENERAL) HISTORY Type Description Date Medical History epilepsy and recurrent seizures Medical History bipolar disorder Medical History neurologic disorder-neuropathy Surgical History back surgery 2013
--- OUTSIDE RECORDS SUMMARY | 2018-05-01 12:37 | XMS REPORT ---
Author Author DARRYL ERIKA [facility] Address [address] [place] [address] Care Team Providers Care Auto Washer Name Role Phone DARRYLGER REYNAGAY Unavailable PROBLEMS Type Condition ICD9-CM Code NLM81-OV Code Onset Dates Condition Status SNOMED Code Problem Bipolar I disorder, most recent episode (or current) depressed F31.30 Active 08112962 Problem Lumbar canal stenosis M48.06 Active 42366769 Problem Benign essential hypertension I10 Active 8123664 Problem Other epilepsy without status epilepticus, not intractable G40.802 Active 642413087 Problem Hereditary and idiopathic peripheral neuropathy G60.9 Active 531549866 Problem Migraine without aura and without status migrainosus, not intractable G43.009 Active 572111902 Problem Raynauds disease without gangrene I73.00 Active 495343605 ALLERGIES No Information ENCOUNTERS Encounter Location Date Diagnosis [place] [address] [address] Aug, [place] [address] 83[address]- 3992 Aug, Benign essential hypertension I10 and Other epilepsy without status epilepticus, not intractable G40.802 [place] [address] [place] [id number] [place] [address] 87794- 9851 Jul, Other epilepsy without status epilepticus, not intractable G40.802 [place] [address] [address]- 3390 Mar, Benign essential hypertension I10 and Other epilepsy without status epilepticus, not intractable G40.802 [place] [address] [place] [id number] [place] [address] 56780- 4387 Feb, Benign essential hypertension I10 [place] [address] [place] [address] 8413 Dec, Benign essential hypertension I10 [place] [address] [place] [id number] [place] [address] 03689- 7312 Sep, Lumbar canal stenosis M48.06 [place] [address] [place] [id number] [place] [address] 71172- 4623 Sep, [place] [address] 55297- 5309 Sep, Elevated lymphocytes D72.820 [place] [address] 65567- 5558 Sep, [place] [address] 73109- 9213 Aug, Bipolar I disorder, most recent episode (or current) depressed F31.30 [place] [address] 60850- 5212 Aug, Other epilepsy without status epilepticus, not intractable G40.802 ; Benign essential hypertension I10 ; Bipolar I disorder, most recent episode (or current) depressed F31.30 ; Hereditary and idiopathic peripheral neuropathy G60.9 ; Lumbar canal stenosis M48.06 and Elevated ALT measurement R74.0 [place] [address] [place] [id number] [place] [address] 77786- 7465 Aug, [place] [address] [place] [id number] [place] [address] 80729- 0424 Aug, [place] [address] [place] [id number] [place] [address] 15336- 6053 May, Benign essential hypertension I10 [place] [address] [place] [id number] [place] [address] 52540- 5450 Dec, Nondisplaced fracture of base of fifth metacarpal bone of right hand, initial encounter S62.346A [place] [address] [place] [id number] [place] [address] 32334- 1242 Dec, Numbness of right hand R20.0 ; Right hand pain M79.641 ; Right wrist pain M25.531 and Closed nondisplaced fracture of base of fifth metacarpal bone of right hand, initial encounter S62.346A [place] [address] [place] [id number] [place] [address] 63863- 3704 Oct, [place] [address] [place] [id number] [place] [address] 14299- 7984 Sep, [place] [address] 41753- 3410 Jul, Benign essential hypertension I10 ; Hyperlipidemia, unspecified hyperlipidemia type E78.5 and Elevated ALT measurement R74.0 [place] [address] [place] [id number] [place] [address] 33749- 3913 Jul, Bipolar I disorder, most recent episode (or current) depressed F31.30 [place] [address] 63924- 8516 Jul, Benign essential hypertension I10 [place] [address] [place] [id number] [place] [address] 21767- 8971 Jul, [place] [address] [place] [id number] [place] [address] 03578- 0503 June, Benign essential hypertension I10 ; Bipolar I disorder, most recent episode (or current) depressed F31.30 ; Lumbar canal stenosis M48.06 and Other epilepsy without status epilepticus, not intractable G40.802 [place] [address] [place] [id number] [place] [address] 03044- 5210 Feb, [place] [address] [place] [id number] [place] [address] 08069- 3865 Feb, [place] [address] [place] [id number] [place] [address] 03234- 8360 Nov, [place] [address] [place] [id number] [place] [address] 22969- 2154 Oct, [place] [address] [id number] [address] 0832 Oct, [facility] [address] [facility] [id number], [place] [address]- 4640 Oct, [facility] [address] [facility] [id number], [place] [address]- 4107 Oct, Lumbar radiculopathy 724.4 ; Lumbar spinal stenosis 724.02 and Constipation 564.00 [facility] [address] [id number], [place] [address]- 3748 Sep, [facility] [address] [facility] [id number] [place] [address] 22728- 1637 Sep, [facility] [address] [facility] [id number], [place] [address]- 6557 Aug, Lumbar radiculopathy 724.4 [facility] [address] [facility] [id number] [place] [address] 02470- 0460 Aug, [facility] [address] [facility] [id number], [place] [address]- 1462 Aug, Hamstring strain 843.8 [facility] [address] [facility] [id number], [place] [address]- 1268 Jul, [facility] [address] [id number] [address]- 9191 Jul, [facility] [address] [facility] [id number], [place] [address]- 3751 14 May, 2014 [facility] [address] [facility] [id number], [place] [address]- 3588 13 May, 2014 [facility] [address] [facility] [id number], [place] [address]- 3461 16 Apr, 2014 [facility] [address] [facility] [id number], [place] [address]- 5592 16 Apr, 2014 [facility] [address] [facility] [id number], [place] [address]- 8282 Mar, 2014 [facility] [place] [facility] [address] [id number] [place] [address]- 2636 Mar, 2014 [facility] [place] [facility] [address] [id number] [place] [address]- 8936 Mar, 2014 [facility] [place] [facility] [address] [id number] [place] [address]- 5086 Mar, 2014 [facility] [place] [facility] [address] [id number] [place] [address]- 0769 Mar, 2014 [facility] [place] [facility] [address] [id number] [place] [address]- 4974 Mar, 2014 [facility] [place] [facility] [address] [facility] [id number] [place] [address]- 5567 Mar, 2014 [facility] [place] [facility] [address] [facility] [id number] [place] [address]- 0775 Mar, 2014 [facility] [place] [facility] [address] [facility] [id number] [place] [address]- 9578 Mar, [facility] [place] [facility] [address] [facility] [id number] [place] [address]- 3347 Mar, 2014 [facility] [place] [facility] [address] [facility] [id number] [place] [address]- 1253 Mar, [facility] [place] [facility] [address] [facility] [id number] [place] [address]- 4872 Mar, 2014 [facility] [place] [facility] [address] [facility] [id number] [place] [address]- 8507 Feb, [facility] [place] [facility] [address] [id number] [place] [address]- 0846 Feb, [facility] [place] [facility] [address] [facility] [id number] [place] [address]- 2196 Feb, [facility] [place] [facility] [address] [facility] [id number] [place] [address]- 5275 Feb, [facility] [place] [facility] [address] [id number] [place] [address]- 1367 Feb, [facility] [place] [facility] [address] [id number] [place] [address]- 3912 Feb, [facility] [place] [facility] [address] [id number] [place] [address]- 6906 Jan, [facility] [place] [facility] [address] [id number] [place] [address]- 2225 Jan, [facility] [place] [facility] [address] [id number] [place] [address]- 5154 Jan, [facility] [place] [facility] [address] [id number] [place] [address]- 0459 Dec, [facility] [place] [facility] [address] [id number] [place] [address]- 5774 Dec, [facility] [place] [facility] [address] [id number] [place] [address]- 2845 Dec, [facility] [place] [facility] [address] [id number] [place] [address]- 8242 Dec, [facility] [place] [facility] [address] [id number] [place] [address]- 5415 Dec, [facility] [place] [facility] [address] [id number], [place] [address]- 4238 Dec, [facility] [place] [facility] [address] [id number], [place] [address]- 4827 Dec, [facility] [place] [facility] [address] [id number] [place] [address]- 8002 Dec, [facility] [place] [facility] [address] [id number], [place] [address]- 3854 Dec, [facility] [place] [facility] [address] [id number] [place] [address]- 0117 Dec, [facility] [place] [facility] [address] [id number] [place] [address]- 5612 Dec, [facility] [place] [facility] [address] [id number] [place] [address]- 6800 Dec, [facility] [place] [facility] [address] [id number] [place] [address]- 0104 Nov, [facility] [place] [facility] [address] [id number] [place] [address]- 0913 Nov, [facility] [place] [facility] [address] [id number] [place] [address]- 6809 Nov, [facility] [place] [facility] [address] [id number] [place] [address]- 7612 Nov, [facility] [place] [facility] [address] [id number] [place] [address]- 9409 16 Oct, 2013 [facility] [place] [facility] [address] [id number] [place] [address]- 5011 16 Oct, 2013 [facility] [place] [facility] [address] [id number] [place] [address]- 9454 16 Oct, 2013 [facility] [place] [facility] [address] [id number] [place] [address]- 2403 16 Oct, 2013 [facility] [place] [facility] [address] [facility] [id number] [place] [address]- 4146 05 Oct, 2013 [facility] [place] [facility] [address] [id number] [place] [address]- 2316 05 Oct, 2013 [facility] [place] [facility] [address] [id number] [place] [address]- 1546 Sep, [facility] [place] [facility] [address] [id number] [place] [address]- 4465 Sep, [facility] [place] [facility] [address] [id number] [place] [address]- 6957 Jul, [facility] [place] [facility] [address] [id number] [place] [address]- 1482 Jul, [facility] [place] [facility] [address] [id number] [place] [address]- 7116 Jul, [facility] [place] [facility] [address] [id number] [place] [address]- 8717 Jul, [facility] [place] [facility] [address] [id number] [place] [address]- 7981 Jul, [facility] [place] [facility] [address] [id number] [place] [address]- 0222 Jul, [facility] [place] [facility] [address] [id number] [place] [address]- 5571 Jul, [facility] [place] [facility] [address] [id number] [place] [address]- 5045 Jul, [facility] [place] [facility] [address] [id number] [place] [address]- 3135 Jul, [facility] [place] [facility] [address] [id number] [place] [address]- 5337 Jul, [facility] [place] [facility] [address] [id number] [place] [address]- 6023 June, [facility] [place] [facility] [address] [id number] [place] [address]- 2684 June, [facility] [place] [facility] [address] [id number] [place] [address]- 9058 June, [facility] [place] [facility] [address] [id number] [place] [address]- 4758 June, [facility] [place] [facility] [address] [id number] [place] [address]- 7860 June, [facility] [place] [facility] [address] [id number] [place] [address]- 9934 June, [facility] [place] [facility] [address] [id number] [place] [address]- 0636 June, [facility] [place] [facility] [address] [id number] [place] [address]- 7290 June, [facility] [place] [facility] [address] [id number] [place] [address]- 5678 June, [facility] [place] [facility] [address] [id number] [place] [address]- 3536 June, [facility] [place] [facility] [address] [id number] [place] [address]- 2861 June, [facility] [place] [facility] [address] [id number] [place] [address]- 4015 June, [facility] [place] [facility] [address] [id number] [place] [address]- 3733 June, [facility] [place] [facility] [address] [id number] [place] [address]- 5984 June, [facility] [place] [facility] [address] [id number] [place] [address]- 5215 May, [facility] [place] [facility] [address] [id number] [place] [address]- 9369 May, [facility] [place] [facility] [address] [id number] [place] [address]- 6285 May, [facility] [place] [facility] [address] [id number] [place] [address]- 4778 May, [facility] [place] [facility] [address] [id number] [place] [address]- 8214 May, [facility] [place] [facility] [address] [id number] [place] [address]- 2698 May, [facility] [place] [facility] [address] [id number] [place] [address]- 5753 May, [facility] [place] [facility] [address] [id number] [place] [address]- 1421 May, [facility] [place] [facility] [address] [id number] [place] [address]- 7603 May, [facility] [place] [facility] [address] [id number] [place] [address]- 8411 May, [facility] [address] [id number] [place] [address]- 2512 May, [facility] [place] [facility] [address] [id number] [place] [address]- 7346 May, [facility] [address] [id number] [place] [address]- 5462 May, [facility] [place] [facility] [address] [id number] [place] [address]- 8349 May, [facility] [place] [facility] [address] [id number] [place] [address]- 7476 May, [facility] [place] [facility] [address] [id number] [place] [address]- 4798 Apr, [facility] [place] [facility] [address] [id number] [place] [address]- 7573 Apr, [facility] [facility] [address] [id number] [place] [address]- 4852 Apr, [facility] [place] [facility] [address] [id number] [place] [address]- 7008 Apr, [facility] [place] [facility] [address] [id number] [place] [address]- 4556 Apr, [facility] [place] [facility] [address] [id number] [place] [address]- 7454 Apr, [facility] [place] [facility] [address] [id number] [place] [address]- 7585 Apr, [facility] [place] [facility] [address] [id number] [place] [address]- 4744 Apr, [facility] [place] [facility] [address] [id number] [place] [address]- 0524 Apr, [facility] [place] [facility] [address] [id number] [place] [address]- 4205 Apr, [facility] [place] [facility] [address] [id number] [place] [address]- 7862 Apr, [facility] [place] [facility] [address] [id number] [place] [address]- 5421 Apr, [facility] [place] [facility] [address] [id number] [place] [address]- 2866 Apr, [facility] [place] [facility] [address] [id number] [place] [address]- 2114 Apr, [facility] [place] [facility] [address] [id number] [place] [address]- 6862 Apr, [facility] [place] [facility] [address] [id number] [place] [address]- 8729 Apr, [facility] [place] [facility] [address] [id number] [place] [address]- 1113 Apr, [facility] [place] [facility] [address] [id number] [place] [address]- 1012 Apr, [facility] [place] [facility] [address] [id number] [place] [address]- 8129 Mar, [facility] [place] [facility] [address] [id number] [place] [address]- 3228 Mar, [facility] [place] [facility] [address] [id number] [place] [address]- 2167 Mar, [facility] [place] [facility] [address] [id number] [place] [address]- 0335 Mar, [facility] [place] [facility] [address] [id number] [place] [address]- 9327 Mar, [facility] [place] [facility] [address] [id number] [place] [address]- 2993 Mar, [facility] [place] [facility] [address] [id number] [place] [address]- 2240 Mar, [facility] [place] [facility] [address] [id number] [place] [address]- 3027 12 Mar, 2013 [facility] [address] [id number] [place] [address]- 2009 Mar, [facility] [place] [facility] [address] [id number] [place] [address]- 1286 Mar, [facility] [address] [id number] [place] [address]- 3329 Feb, [facility] [place] [facility] [address] [id number] [place] [address]- 9418 Feb, [facility] [address] [id number] [place] [address]- 1676 Feb, [facility] [place] [facility] [address] [id number] [place] [address]- 7375 Feb, [facility] [place] [facility] [address] [id number] [place] [address]- 7773 Feb, [facility] [address] [id number] [place] [address]- 1233 Feb, [facility] [place] [facility] [address] [id number] [place] [address]- 3006 Feb, [facility] [address] [id number] [place] [address]- 2569 Feb, [facility] [place] [facility] [address] [id number] [place] [address]- 8504 Feb, [facility] [place] [facility] [address] [id number] [place] [address]- 3032 Feb, [facility] [place] [facility] [address] [id number] [place] [address]- 8249 Feb, [facility] [place] [facility] [address] [id number] [place] [address]- 2332 Feb, [facility] [place] [facility] [address] [id number] [place] [address]- 2908 Feb, [facility] [place] [facility] [address] [id number] [place] [address]- 7771 Jan, [facility] [place] [facility] [address] [id number] [place] [address]- 3457 Jan, [facility] [place] [facility] [address] [id number] [place] [address]- 8993 Nov, [facility] [place] [facility] [address] [id number] [place] [address]- 8131 Nov, [facility] [place] [facility] [address] [id number] [place] [address] Nov, [facility] [place] [facility] [address] [id number] [place] [address] Nov, [facility] [place] [facility] [address] [id number] [place] [address] Nov, [facility] [place] [facility] [address] [id number], [place] [address] Oct, [facility] [place] [facility] [address] [id number] [place] [address] Oct, [facility] [place] [facility] [address] [id number], [place] [address] Oct, [facility] [place] [facility] [address] [id number], [place] [address] Oct, [facility] [place] [facility] [address] [id number], [place] [address] Oct, [facility] [place] [facility] [address] [id number], [place] [address] Sep, [facility] [place] [facility] [address] [id number], [place] [address] Sep, [facility] [place] [facility] [address] [id number], [place] [address] Sep, [facility] [place] [facility] [address] [id number], [place] [address] Sep, [facility] [address] [facility] [id number] [place] [address] Sep, [facility] [address] [facility] [id number] [place] [address] Sep, [facility] [id number] [address] Sep, [facility] [address] [facility] [id number] [place] [address] Aug, [facility] [address] [id number] [address] Aug, [facility] [address] [id number] [address] Jul, [facility] [id number], [place] [address] Jul, [facility] [id number] [address] June, [facility] [id number], [place] [address] June, [facility] [id number], [place] [address] June, [facility] [address] [id number], [place] [address] Apr, [facility] [address] [facility] [id number], [place] [address] Feb, [facility] [address] [id number], [place] [address] Feb, [facility] [address] [facility] [id number], [place] [address] Feb, [facility] [address] [id number], [place] [address] Feb, IMMUNIZATIONS No Known Immunizations SOCIAL HISTORY Never Assessed REASON FOR VISIT Refill Requests PLAN OF CARE VITAL SIGNS MEDICATIONS Medication Instructions Dosage Frequency Start Date End Date Duration Status Gabapentin 800 MG Orally Three times a day 1 tablet 8h 30 days Active Lisinopril 40 mg Orally Once a day 1 tablet 24h 30 days Active Propranolol HCl 40 mg Orally 2 times a day 1 tablet 12h 30 days Active RESULTS No Results PROCEDURES No Known procedures INSTRUCTIONS MEDICATIONS ADMINISTERED No Known Medications MEDICAL (GENERAL) HISTORY Type Description Date Medical History epilepsy and recurrent seizures Medical History bipolar disorder Medical History neurologic disorder-neuropathy Surgical History back surgery 2013
--- OUTSIDE RECORDS SUMMARY | 2018-05-01 12:37 | XMS REPORT ---
Author Author Sujatha Spear Organization [facility] Address [address] [place] [address] [phone] Care Team Providers Care Candle Wicker Name Role Phone Sujatha Spear Unavailable PROBLEMS Type Condition ICD9-CM Code [id number] Code Onset Dates Condition Status SNOMED Code Problem Essential (primary) hypertension I10 Active 77578014 Problem Methamphetamine abuse F15.10 Active 089534347 ALLERGIES No Known Allergies ENCOUNTERS Encounter Location Date [facility] [address] [place] [address] [phone] Aug, Risk for dental caries, high Z91.843 [facility] [[email or web address]] [address] [place] [address] [phone] Aug, Encounter for general adult medical examination without abnormal findings Z00.00 ; Methamphetamine abuse F15.10 and Essential (primary) hypertension I10 IMMUNIZATIONS No Known Immunizations SOCIAL HISTORY Never Assessed REASON FOR VISIT [facility] PLAN OF CARE Activity Details Follow Up prn Reason: VITAL SIGNS Temperature 97.7 degrees Fahrenheit 2017-09-15 Heart Rate 69 /min 2017-09-15 Respiratory Rate 18 /min 2017-09-15 Oximetry 99 % 2017-09-15 Weight 200.3 lbs 2017-09-15 Blood pressure systolic 150 mm Hg 2017-09-15 Blood pressure diastolic 90 mm Hg 2017-09-15 MEDICATIONS Medication Instructions Dosage Frequency Start Date End Date Duration Status Lisinopril 20 MG Orally once a day 1 tablet 24h 30 days Active Gabapentin 800 MG Orally every 8 hrs 1 tablet 8h 30 days Active RESULTS No Results PROCEDURES No Known procedures INSTRUCTIONS MEDICATIONS ADMINISTERED No Known Medications MEDICAL (GENERAL) HISTORY Type Description Date Medical History hypertension Medical History bipolar disorder Medical History depression Surgical History eye surgery 02/1984 Surgical History Back surgery 03/2013
--- OUTSIDE RECORDS SUMMARY | 2018-05-01 12:37 | XMS REPORT ---
Author Author Lula Saavedra [facility] Address [address] [place] [id number] Care Team Providers Care Supervisor Fruit Grading Name Role Phone Lula Saavedra Unavailable PROBLEMS Type Condition ICD9-CM Code [id number] Code Onset Dates Condition Status SNOMED Code Problem Essential (primary) hypertension I10 Active 97792167 Problem Methamphetamine abuse F15.10 Active [id number] ALLERGIES No Information ENCOUNTERS Encounter Location Date Diagnosis [facility] [address] [place] [address] [phone] Aug, Risk for dental caries, high Z91.843 [facility] [address] [place] [address] [phone] Aug, Encounter for general adult medical examination without abnormal findings Z00.00 ; Methamphetamine abuse F15.10 and Essential (primary) hypertension I10 IMMUNIZATIONS No Known Immunizations SOCIAL HISTORY Never Assessed REASON FOR VISIT Integrated dental screening PLAN OF CARE VITAL SIGNS MEDICATIONS Unknown Medications RESULTS No Results PROCEDURES Procedure Date Ordered Result Body Site TOPICAL FLUORIDE VARNISH September 15, 2017 SCREENING OF A PATIENT September 15, 2017 Integrated Visit September 15, 2017 CARIES RISK ASSESS DOC FIND HI RSK September 15, 2017 INSTRUCTIONS MEDICATIONS ADMINISTERED No Known Medications MEDICAL (GENERAL) HISTORY Type Description Date Medical History hypertension Medical History bipolar disorder Medical History depression Surgical History eye surgery 02/1984 Surgical History Back surgery 03/2013
--- OUTSIDE RECORDS SUMMARY | 2018-05-01 12:38 | XMS REPORT | Continuity of Care Document ---
Author Author [facility] Address Unknown Phone Unavailable Allergies Active Description Code Type Severity Reaction Onset Reported/Identified Relationship to Patient Clinical Status Yes NKANo Known Allergies NKA Miscellaneous Allergy Mild N/A 06/27/2009 Yes Keppra Drug Allergy N/A N/A 11/30/2013 Medications There is no data. Problems Date Dx Coded Attending Type Code Diagnosis Diagnosed By 08/25/2009 Ot 682.6 08/25/2009 Ot 945.24 08/25/2009 Ot 948.00 08/25/2009 Ot E000.8 08/25/2009 Ot E029.9 08/25/2009 Ot E849.0 08/25/2009 Ot E924.8 02/18/2010 Ot 464.00 02/18/2010 Ot 466.0 02/18/2010 Ot 786.2 02/23/2012 CLEMENCIA SIMS DO 296.80 BIPOLAR DISORDER UNSPECIFIED 02/23/2012 CLEMENCIA SIMS DO 345.90 SEIZURE DISORDER 02/23/2012 296.80 BIPOLAR DISORDER UNSPECIFIED 02/23/2012 345.90 SEIZURE DISORDER 02/23/2012 296.80 BIPOLAR DISORDER UNSPECIFIED 02/23/2012 345.90 SEIZURE DISORDER 02/23/2012 296.80 BIPOLAR DISORDER UNSPECIFIED 02/23/2012 345.90 SEIZURE DISORDER 02/23/2012 296.80 BIPOLAR DISORDER UNSPECIFIED 02/23/2012 345.90 SEIZURE DISORDER 02/23/2012 CELSO WHITE DO 296.80 BIPOLAR DISORDER UNSPECIFIED 02/23/2012 CELSO WHITE DO 345.90 SEIZURE DISORDER 02/23/2012 [facility] 296.80 BIPOLAR DISORDER UNSPECIFIED 02/23/2012 [facility] [place] SCHNEIDER 345.90 SEIZURE DISORDER 02/23/2012 ERIKA ANDREWS MD 296.80 BIPOLAR DISORDER UNSPECIFIED 02/23/2012 ERIKA ANDREWS MD 345.90 SEIZURE DISORDER 02/23/2012 SIMS DO, CLEMENCIA K 296.80 BIPOLAR DISORDER UNSPECIFIED 02/23/2012 SIMS DO, CLEMENCIA K 345.90 SEIZURE DISORDER 02/23/2012 ERIKA ANDREWS MD N 296.80 BIPOLAR DISORDER UNSPECIFIED 02/23/2012 ERIKA ANDREWS MD N 345.90 SEIZURE DISORDER 02/23/2012 [facility] [place] R 296.80 BIPOLAR DISORDER UNSPECIFIED 02/23/2012 [facility] [place] R 345.90 SEIZURE DISORDER 02/23/2012 ERIKA ANDREWS MD N 296.80 BIPOLAR DISORDER UNSPECIFIED 02/23/2012 ERIKA ANDREWS MD 345.90 SEIZURE DISORDER 02/23/2012 [facility] [place] R 296.80 BIPOLAR DISORDER UNSPECIFIED 02/23/2012 [facility] [place] R 345.90 SEIZURE DISORDER 02/23/2012 PRAMOD FRANCO APRN 296.80 BIPOLAR DISORDER UNSPECIFIED 02/23/2012 PRAMOD FRANCO APRN 345.90 SEIZURE DISORDER 02/23/2012 SIMS DO CLEMENCIA K 296.80 BIPOLAR DISORDER UNSPECIFIED 02/23/2012 SIMS DO CLEMENCIA K 345.90 SEIZURE DISORDER 02/23/2012 ERIKA ANDREWS MD N 296.80 BIPOLAR DISORDER UNSPECIFIED 02/23/2012 ERIKA ANDREWS MD N 345.90 SEIZURE DISORDER 02/23/2012 ERIKA ANDREWS MD N 296.80 BIPOLAR DISORDER UNSPECIFIED 02/23/2012 ERIKA ANDREWS MD N 345.90 SEIZURE DISORDER 02/23/2012 [facility] [place] R 296.80 BIPOLAR DISORDER UNSPECIFIED 02/23/2012 [facility] [place] R 345.90 SEIZURE DISORDER 02/23/2012 [facility] [place] R 296.80 BIPOLAR DISORDER UNSPECIFIED 02/23/2012 [facility] [place] R 345.90 SEIZURE DISORDER 02/23/2012 MEENA ANAYA PUJA R 296.80 BIPOLAR DISORDER UNSPECIFIED 02/23/2012 MEENA ANAYA PUJA R 345.90 SEIZURE DISORDER 02/23/2012 SIMS DO CLEMENCIA K 296.80 BIPOLAR DISORDER UNSPECIFIED 02/23/2012 SIMS DO CLEMENCIA K 345.90 SEIZURE DISORDER 02/23/2012 MEGHAN PERRY MD 296.80 BIPOLAR DISORDER UNSPECIFIED 02/23/2012 MEGHAN PERRY MD 345.90 SEIZURE DISORDER 02/23/2012 SEAN KNOWLEDGE ANALYST, ANNEMARIE 296.80 BIPOLAR DISORDER UNSPECIFIED 02/23/2012 SEAN KNOWLEDGE ANALYST, ANNEMARIE 345.90 SEIZURE DISORDER 02/23/2012 ERIKA ANDREWS MD N 296.80 BIPOLAR DISORDER UNSPECIFIED 02/23/2012 ERIKA ANDREWS MD N 345.90 SEIZURE DISORDER 02/23/2012 ERIKA ANDREWS MD N 296.80 BIPOLAR DISORDER UNSPECIFIED 02/23/2012 ERIKA ANDREWS MD N 345.90 SEIZURE DISORDER 02/23/2012 SEAN KNOWLEDGE ANALYST, ANNEMARIE 296.80 BIPOLAR DISORDER UNSPECIFIED 02/23/2012 SEAN KNOWLEDGE ANALYST, ANNEMARIE 345.90 SEIZURE DISORDER 02/23/2012 SEAN KNOWLEDGE ANALYST, ANNEMARIE 296.80 BIPOLAR DISORDER UNSPECIFIED 02/23/2012 SEAN KNOWLEDGE ANALYST, ANNEMARIE 345.90 SEIZURE DISORDER 02/23/2012 ERIKA ANDREWS MD N 296.80 BIPOLAR DISORDER UNSPECIFIED 02/23/2012 ERIKA ANDREWS MD 345.90 SEIZURE DISORDER 02/23/2012 [facility] [place] R 296.80 BIPOLAR DISORDER UNSPECIFIED 02/23/2012 [facility] [place] R 345.90 SEIZURE DISORDER 02/23/2012 MEGHAN PERRY MD 296.80 BIPOLAR DISORDER UNSPECIFIED 02/23/2012 MEGHAN PERRY MD 345.90 SEIZURE DISORDER 02/23/2012 ERIKA ANDREWS MD N 296.80 BIPOLAR DISORDER UNSPECIFIED 02/23/2012 ERIKA ANDREWS MD 345.90 SEIZURE DISORDER 02/23/2012 SEAN KNOWLEDGE ANALYST, ANNEMARIE 296.80 BIPOLAR DISORDER UNSPECIFIED 02/23/2012 SEAN KNOWLEDGE ANALYST, ANNEMARIE 345.90 SEIZURE DISORDER 02/23/2012 ERIKA ANDREWS MD N 296.80 BIPOLAR DISORDER UNSPECIFIED 02/23/2012 ERIKA ANDREWS MD N 345.90 SEIZURE DISORDER 02/23/2012 ERIKA ANDREWS MD N 296.80 BIPOLAR DISORDER UNSPECIFIED 02/23/2012 ERIKA ANDREWS MD N 345.90 SEIZURE DISORDER 02/23/2012 ERIKA ANDREWS MD N 296.80 BIPOLAR DISORDER UNSPECIFIED 02/23/2012 ERIKA ANDREWS MD N 345.90 SEIZURE DISORDER 02/23/2012 ERIKA ANDREWS MD N 296.80 BIPOLAR DISORDER UNSPECIFIED 02/23/2012 DARRYL CHEN, ERIKA N 345.90 SEIZURE DISORDER 02/28/2012 Ot 780.39 OTHER CONVULSIONS 09/06/2012 V58.69 MEDICATION HIGH RISK 09/06/2012 V58.69 MEDICATION HIGH RISK 09/06/2012 CHRISTOPHER CELSO V58.69 MEDICATION HIGH RISK 09/06/2012 [facility] [place] R V58.69 MEDICATION HIGH RISK 09/06/2012 ERIKA ANDREWS MD V58.69 MEDICATION HIGH RISK 09/06/2012 LCEMENCIA SIMS DO V58.69 MEDICATION HIGH RISK 09/06/2012 ERIKA ANDREWS MD V58.69 MEDICATION HIGH RISK 09/06/2012 [facility] [place] R V58.69 MEDICATION HIGH RISK 09/06/2012 ERIKA ANDREWS MD V58.69 MEDICATION HIGH RISK 09/06/2012 [facility] [place] R V58.69 MEDICATION HIGH RISK 09/06/2012 PRAMOD FRANCO APRN V58.69 MEDICATION HIGH RISK 09/06/2012 CLEMENCIA SIMS DO V58.69 MEDICATION HIGH RISK 09/06/2012 ERIKA ANDREWS MD V58.69 MEDICATION HIGH RISK 09/06/2012 ERIKA ANDREWS MD V58.69 MEDICATION HIGH RISK 09/06/2012 [facility] [place] R V58.69 MEDICATION HIGH RISK 09/06/2012 [facility] [place] R V58.69 MEDICATION HIGH RISK 09/06/2012 PUJA ROBLEDO APRN V58.69 MEDICATION HIGH RISK 09/06/2012 CLEMENCIA SIMS DO V58.69 MEDICATION HIGH RISK 09/06/2012 MEGHAN PERRY MD V58.69 MEDICATION HIGH RISK 09/06/2012 SEAN KNOWLEDGE ANALYST, ANNEMARIE V58.69 MEDICATION HIGH RISK 09/06/2012 ERIKA ANDREWS MD V58.69 MEDICATION HIGH RISK 09/06/2012 ERIKA ANDREWS MD V58.69 MEDICATION HIGH RISK 09/06/2012 SEAN KNOWLEDGE ANALYST, ANNEMARIE V58.69 MEDICATION HIGH RISK 09/06/2012 SEAN KNOWLEDGE ANALYST, ANNEMARIE V58.69 MEDICATION HIGH RISK 09/06/2012 ERIKA ANDREWS MD V58.69 MEDICATION HIGH RISK 09/06/2012 [facility] [place] R V58.69 MEDICATION HIGH RISK 09/06/2012 MEGHAN PERRY MD V58.69 MEDICATION HIGH RISK 09/06/2012 ERIKA ANDREWS MD V58.69 MEDICATION HIGH RISK 09/06/2012 ANNEMARIE ESTRADA APRN V58.69 MEDICATION HIGH RISK 09/06/2012 DARRYL CHEN, ERIKA N V58.69 MEDICATION HIGH RISK 09/06/2012 ERIKA ANDREWS MD V58.69 MEDICATION HIGH RISK 09/06/2012 DARRYL CHEN, ERIKA N V58.69 MEDICATION HIGH RISK 09/06/2012 DARRYL CHEN, ERIKA N V58.69 MEDICATION HIGH RISK 09/25/2012 296.52 MO BIPOLAR I DEPRESSED MODERATE 09/25/2012 296.52 MO BIPOLAR I DEPRESSED MODERATE 09/25/2012 CELSO WHITE DO 296.52 MO BIPOLAR I DEPRESSED MODERATE 09/25/2012 [facility] [place] R 296.52 MO BIPOLAR I DEPRESSED MODERATE 09/25/2012 ERIKA ANDREWS MD N 296.52 MO BIPOLAR I DEPRESSED MODERATE 09/25/2012 CLEMENCIA SIMS DO K 296.52 MO BIPOLAR I DEPRESSED MODERATE 09/25/2012 ERIKA ANDREWS MD N 296.52 MO BIPOLAR I DEPRESSED MODERATE 09/25/2012 [facility] [place] R 296.52 MO BIPOLAR I DEPRESSED MODERATE 09/25/2012 ERIKA ANDREWS MD N 296.52 MO BIPOLAR I DEPRESSED MODERATE 09/25/2012 [facility] [place] R 296.52 MO BIPOLAR I DEPRESSED MODERATE 09/25/2012 PRAMOD FRANCO APRN 296.52 MO BIPOLAR I DEPRESSED MODERATE 09/25/2012 CLEMENCIA SIMS DO K 296.52 MO BIPOLAR I DEPRESSED MODERATE 09/25/2012 ERIKA ANDREWS MD N 296.52 MO BIPOLAR I DEPRESSED MODERATE 09/25/2012 ERIKA ANDREWS MD N 296.52 MO BIPOLAR I DEPRESSED MODERATE 09/25/2012 [facility] [place] R 296.52 MO BIPOLAR I DEPRESSED MODERATE 09/25/2012 [facility] [place] R 296.52 MO BIPOLAR I DEPRESSED MODERATE 09/25/2012 PUJA ROBLEDO APRN 296.52 MO BIPOLAR I DEPRESSED MODERATE 09/25/2012 CLEMENCIA SIMS DO K 296.52 MO BIPOLAR I DEPRESSED MODERATE 09/25/2012 MEGHAN PERRY MD 296.52 MO BIPOLAR I DEPRESSED MODERATE 09/25/2012 SEAN KNOWLEDGE ANALYST, ANNEMARIE 296.52 MO BIPOLAR I DEPRESSED MODERATE 09/25/2012 ERIKA ANDREWS MD N 296.52 MO BIPOLAR I DEPRESSED MODERATE 09/25/2012 ERIKA ANDREWS MD N 296.52 MO BIPOLAR I DEPRESSED MODERATE 09/25/2012 SEAN KNOWLEDGE ANALYST, ANNEMARIE 296.52 MO BIPOLAR I DEPRESSED MODERATE 09/25/2012 SEAN KNOWLEDGE ANALYST, ANNEMARIE 296.52 MO BIPOLAR I DEPRESSED MODERATE 09/25/2012 ERIKA ANDREWS MD N 296.52 MO BIPOLAR I DEPRESSED MODERATE 09/25/2012 [facility] [place] R 296.52 MO BIPOLAR I DEPRESSED MODERATE 09/25/2012 MEGHAN PERRY MD 296.52 MO BIPOLAR I DEPRESSED MODERATE 09/25/2012 ERIKA ANDREWS MD N 296.52 MO BIPOLAR I DEPRESSED MODERATE 09/25/2012 SEAN KNOWLEDGE ANALYST, ANNEMARIE 296.52 MO BIPOLAR I DEPRESSED MODERATE 09/25/2012 ERIKA ANDREWS MD N 296.52 MO BIPOLAR I DEPRESSED MODERATE 09/25/2012 ERIKA ANDREWS MD N 296.52 MO BIPOLAR I DEPRESSED MODERATE 09/25/2012 ERIKA ANDREWS MD N 296.52 MO BIPOLAR I DEPRESSED MODERATE 09/25/2012 ERIKA ANDREWS MD N 296.52 MO BIPOLAR I DEPRESSED MODERATE 09/27/2012 401.1 HYPERTENSION, BENIGN ESSENTIAL 09/27/2012 401.1 HYPERTENSION, BENIGN ESSENTIAL 09/27/2012 CELSO WHITE DO 401.1 HYPERTENSION, BENIGN ESSENTIAL 09/27/2012 [facility] [place] R 401.1 HYPERTENSION, BENIGN ESSENTIAL 09/27/2012 ERIKA ANDREWS MD 401.1 HYPERTENSION, BENIGN ESSENTIAL 09/27/2012 CLEMENCIA SIMS DO 401.1 HYPERTENSION, BENIGN ESSENTIAL 09/27/2012 ERIKA ANDREWS MD 401.1 HYPERTENSION, BENIGN ESSENTIAL 09/27/2012 [facility] [place] R 401.1 HYPERTENSION, BENIGN ESSENTIAL 09/27/2012 ERIKA ANDREWS MD 401.1 HYPERTENSION, BENIGN ESSENTIAL 09/27/2012 [facility] [place] R 401.1 HYPERTENSION, BENIGN ESSENTIAL 09/27/2012 PRAMOD FRANCO APRN 401.1 HYPERTENSION, BENIGN ESSENTIAL 09/27/2012 SIMS DO, CLEMENCIA K 401.1 HYPERTENSION, BENIGN ESSENTIAL 09/27/2012 DARRYL CHEN, ERIKA N 401.1 HYPERTENSION, BENIGN ESSENTIAL 09/27/2012 DARRYL CHEN, ERIKA Sumner 401.1 HYPERTENSION, BENIGN ESSENTIAL 09/27/2012 [facility] [place] R 401.1 HYPERTENSION, BENIGN ESSENTIAL 09/27/2012 [facility] [place] R 401.1 HYPERTENSION, BENIGN ESSENTIAL 09/27/2012 MEENA ANAYA, PUJA R 401.1 HYPERTENSION, BENIGN ESSENTIAL 09/27/2012 SIMS DO, CLEMENCIA K 401.1 HYPERTENSION, BENIGN ESSENTIAL 09/27/2012 MEGHAN PERRY MD 401.1 HYPERTENSION, BENIGN ESSENTIAL 09/27/2012 ANNEMARIE ESTRADA APRN 401.1 HYPERTENSION, BENIGN ESSENTIAL 09/27/2012 DARRYL CHEN, ERIKA N 401.1 HYPERTENSION, BENIGN ESSENTIAL 09/27/2012 ERIKA ANDREWS MD N 401.1 HYPERTENSION, BENIGN ESSENTIAL 09/27/2012 ANNEMARIE ESTRADA APRN 401.1 HYPERTENSION, BENIGN ESSENTIAL 09/27/2012 ANNEMARIE ESTRADA APRN 401.1 HYPERTENSION, BENIGN ESSENTIAL 09/27/2012 DARRYL CHEN, ERIKA N 401.1 HYPERTENSION, BENIGN ESSENTIAL 09/27/2012 [facility] [place] R 401.1 HYPERTENSION, BENIGN ESSENTIAL 09/27/2012 MEGHAN PERRY MD 401.1 HYPERTENSION, BENIGN ESSENTIAL 09/27/2012 ERIKA ANDREWS MD N 401.1 HYPERTENSION, BENIGN ESSENTIAL 09/27/2012 ANNEMARIE ESTRADA APRN 401.1 HYPERTENSION, BENIGN ESSENTIAL 09/27/2012 ERIKA ANDREWS MD N 401.1 HYPERTENSION, BENIGN ESSENTIAL 09/27/2012 ERIKA ANDREWS MD N 401.1 HYPERTENSION, BENIGN ESSENTIAL 09/27/2012 ERIKA ANDREWS MD N 401.1 HYPERTENSION, BENIGN ESSENTIAL 09/27/2012 ERIKA ANDREWS MD 401.1 HYPERTENSION, BENIGN ESSENTIAL 09/27/2012 CRIS MORENO MD Ot 966.3 POIS-ANTICONVUL NEC/NOS 09/27/2012 CRIS MORENO MD Ot 969.3 POISON-ANTIPSYCHOTIC NEC 09/27/2012 BRUEGGEMANN MD, CRIS T Ot E950.3 SUICIDE-PSYCHOTROPIC AGT 09/27/2012 JOSH CHEN, CRIS Joy Ot E950.4 SUICIDE-DRUG/MEDICIN NEC 10/11/2012 CELSO WHITE DO 296.50 MO BIPOLAR I DEPRESSED UNSPECIFIED 10/11/2012 [facility] [place] R 296.50 MO BIPOLAR I DEPRESSED UNSPECIFIED 10/11/2012 ERIKA ANDREWS MD 296.50 MO BIPOLAR I DEPRESSED UNSPECIFIED 10/11/2012 CLEMENCIA SIMS DO 296.50 MO BIPOLAR I DEPRESSED UNSPECIFIED 10/11/2012 ERIKA ANDREWS MD N 296.50 MO BIPOLAR I DEPRESSED UNSPECIFIED 10/11/2012 [facility] [place] R 296.50 MO BIPOLAR I DEPRESSED UNSPECIFIED 10/11/2012 ERIKA ANDREWS MD 296.50 MO BIPOLAR I DEPRESSED UNSPECIFIED 10/11/2012 [facility] [place] R 296.50 MO BIPOLAR I DEPRESSED UNSPECIFIED 10/11/2012 PRAMOD FRANCO APRN 296.50 MO BIPOLAR I DEPRESSED UNSPECIFIED 10/11/2012 CLEMENCIA SIMS DO 296.50 MO BIPOLAR I DEPRESSED UNSPECIFIED 10/11/2012 ERIKA ANDREWS MD N 296.50 MO BIPOLAR I DEPRESSED UNSPECIFIED 10/11/2012 ERIKA ANDREWS MD 296.50 MO BIPOLAR I DEPRESSED UNSPECIFIED 10/11/2012 [facility] [place] R 296.50 MO BIPOLAR I DEPRESSED UNSPECIFIED 10/11/2012 [facility] [place] R 296.50 MO BIPOLAR I DEPRESSED UNSPECIFIED 10/11/2012 PUJA ROBLEDO APRN R 296.50 MO BIPOLAR I DEPRESSED UNSPECIFIED 10/11/2012 CLEMENCIA SIMS DO 296.50 MO BIPOLAR I DEPRESSED UNSPECIFIED 10/11/2012 MEGHAN PERRY MD 296.50 MO BIPOLAR I DEPRESSED UNSPECIFIED 10/11/2012 ANNEMARIE ESTRADA APRN 296.50 MO BIPOLAR I DEPRESSED UNSPECIFIED 10/11/2012 ERIKA ANDREWS MD N 296.50 MO BIPOLAR I DEPRESSED UNSPECIFIED 10/11/2012 ERIKA ANDREWS MD 296.50 MO BIPOLAR I DEPRESSED UNSPECIFIED 10/11/2012 DEMETRI ESTRADA APRNETTE 296.50 MO BIPOLAR I DEPRESSED UNSPECIFIED 10/11/2012 SEAN ANAYA ANNEMARIE 296.50 MO BIPOLAR I DEPRESSED UNSPECIFIED 10/11/2012 DARRYL CHEN, ERIKA N 296.50 MO BIPOLAR I DEPRESSED UNSPECIFIED 10/11/2012 [facility] [place] R 296.50 MO BIPOLAR I DEPRESSED UNSPECIFIED 10/11/2012 MEGHAN PERRY MD 296.50 MO BIPOLAR I DEPRESSED UNSPECIFIED 10/11/2012 DARRYL CHEN, ERIKA N 296.50 MO BIPOLAR I DEPRESSED UNSPECIFIED 10/11/2012 ANNEMARIE ESTRADA APRN 296.50 MO BIPOLAR I DEPRESSED UNSPECIFIED 10/11/2012 DARRYL CHEN, ERIKA N 296.50 MO BIPOLAR I DEPRESSED UNSPECIFIED 10/11/2012 DARRYL CHEN, ERIKA N 296.50 MO BIPOLAR I DEPRESSED UNSPECIFIED 10/11/2012 DARRYL CHEN, ERIKA N 296.50 MO BIPOLAR I DEPRESSED UNSPECIFIED 10/11/2012 DARRYL CHEN, ERIKA N 296.50 MO BIPOLAR I DEPRESSED UNSPECIFIED 02/20/2013 ERIKA ANDREWS MD N 346.10 MIGRAINE WITHOUT AURA WITHOUT MENTION OF INTRACTABLE MIGRAINE WITHOUT MENTION OF STATUS MIGRAINOSUS 02/20/2013 [facility] [place] R 346.10 MIGRAINE WITHOUT AURA WITHOUT MENTION OF INTRACTABLE MIGRAINE WITHOUT MENTION OF STATUS MIGRAINOSUS 02/20/2013 ERIKA ANDREWS MD N 346.10 MIGRAINE WITHOUT AURA WITHOUT MENTION OF INTRACTABLE MIGRAINE WITHOUT MENTION OF STATUS MIGRAINOSUS 02/20/2013 [facility] [place] R 346.10 MIGRAINE WITHOUT AURA WITHOUT MENTION OF INTRACTABLE MIGRAINE WITHOUT MENTION OF STATUS MIGRAINOSUS 02/20/2013 PRAMOD FRANCO APRN 346.10 MIGRAINE WITHOUT AURA WITHOUT MENTION OF INTRACTABLE MIGRAINE WITHOUT MENTION OF STATUS MIGRAINOSUS 02/20/2013 CLEMENCIA SIMS DO 346.10 MIGRAINE WITHOUT AURA WITHOUT MENTION OF INTRACTABLE MIGRAINE WITHOUT MENTION OF STATUS MIGRAINOSUS 02/20/2013 ERIKA ANDREWS MD N 346.10 MIGRAINE WITHOUT AURA WITHOUT MENTION OF INTRACTABLE MIGRAINE WITHOUT MENTION OF STATUS MIGRAINOSUS 02/20/2013 ERIKA ANDREWS MD N 346.10 MIGRAINE WITHOUT AURA WITHOUT MENTION OF INTRACTABLE MIGRAINE WITHOUT MENTION OF STATUS MIGRAINOSUS 02/20/2013 [facility] 346.10 MIGRAINE WITHOUT AURA WITHOUT MENTION OF INTRACTABLE MIGRAINE WITHOUT MENTION OF STATUS MIGRAINOSUS 02/20/2013 [facility] 346.10 MIGRAINE WITHOUT AURA WITHOUT MENTION OF INTRACTABLE MIGRAINE WITHOUT MENTION OF STATUS MIGRAINOSUS 02/20/2013 MEENA KNOWLEDGE ANALYST, PUJA R 346.10 MIGRAINE WITHOUT AURA WITHOUT MENTION OF INTRACTABLE MIGRAINE WITHOUT MENTION OF STATUS MIGRAINOSUS 02/20/2013 BETHANY MTZ CLEMENCIA K 346.10 MIGRAINE WITHOUT AURA WITHOUT MENTION OF INTRACTABLE MIGRAINE WITHOUT MENTION OF STATUS MIGRAINOSUS 02/20/2013 MEGHAN PERRY MD 346.10 MIGRAINE WITHOUT AURA WITHOUT MENTION OF INTRACTABLE MIGRAINE WITHOUT MENTION OF STATUS MIGRAINOSUS 02/20/2013 SEAN KNOWLEDGE ANALYST, ANNEMARIE 346.10 MIGRAINE WITHOUT AURA WITHOUT MENTION OF INTRACTABLE MIGRAINE WITHOUT MENTION OF STATUS MIGRAINOSUS 02/20/2013 ERIKA ANDREWS MD 346.10 MIGRAINE WITHOUT AURA WITHOUT MENTION OF INTRACTABLE MIGRAINE WITHOUT MENTION OF STATUS MIGRAINOSUS 02/20/2013 ERIKA ANDREWS MD 346.10 MIGRAINE WITHOUT AURA WITHOUT MENTION OF INTRACTABLE MIGRAINE WITHOUT MENTION OF STATUS MIGRAINOSUS 02/20/2013 SEAN KNOWLEDGE ANALYST, ANNEMARIE 346.10 MIGRAINE WITHOUT AURA WITHOUT MENTION OF INTRACTABLE MIGRAINE WITHOUT MENTION OF STATUS MIGRAINOSUS 02/20/2013 SEAN KNOWLEDGE ANALYST, ANNEMARIE 346.10 MIGRAINE WITHOUT AURA WITHOUT MENTION OF INTRACTABLE MIGRAINE WITHOUT MENTION OF STATUS MIGRAINOSUS 02/20/2013 ERIKA ANDREWS MD 346.10 MIGRAINE WITHOUT AURA WITHOUT MENTION OF INTRACTABLE MIGRAINE WITHOUT MENTION OF STATUS MIGRAINOSUS 02/20/2013 [facility] MCDANIEL, [place] R 346.10 MIGRAINE WITHOUT AURA WITHOUT MENTION OF INTRACTABLE MIGRAINE WITHOUT MENTION OF STATUS MIGRAINOSUS 02/20/2013 MEGHAN PERRY MD 346.10 MIGRAINE WITHOUT AURA WITHOUT MENTION OF INTRACTABLE MIGRAINE WITHOUT MENTION OF STATUS MIGRAINOSUS 02/20/2013 ERIKA ANDREWS MD 346.10 MIGRAINE WITHOUT AURA WITHOUT MENTION OF INTRACTABLE MIGRAINE WITHOUT MENTION OF STATUS MIGRAINOSUS 02/20/2013 SEAN KNOWLEDGE ANALYST, ANNEMARIE 346.10 MIGRAINE WITHOUT AURA WITHOUT MENTION OF INTRACTABLE MIGRAINE WITHOUT MENTION OF STATUS MIGRAINOSUS 02/20/2013 ERIKA ANDREWS MD 346.10 MIGRAINE WITHOUT AURA WITHOUT MENTION OF INTRACTABLE MIGRAINE WITHOUT MENTION OF STATUS MIGRAINOSUS 02/20/2013 ERIKA ANDREWS MD 346.10 MIGRAINE WITHOUT AURA WITHOUT MENTION OF INTRACTABLE MIGRAINE WITHOUT MENTION OF STATUS MIGRAINOSUS 02/20/2013 ERIKA ANDREWS MD 346.10 MIGRAINE WITHOUT AURA WITHOUT MENTION OF INTRACTABLE MIGRAINE WITHOUT MENTION OF STATUS MIGRAINOSUS 02/20/2013 ERIKA ANDREWS MD N 346.10 MIGRAINE WITHOUT AURA WITHOUT MENTION OF INTRACTABLE MIGRAINE WITHOUT MENTION OF STATUS MIGRAINOSUS 02/21/2013 CRIS MORENO MD Ot 786.50 CHEST PAIN NOS 02/21/2013 CRIS MORENO MD Ot 786.52 PAINFUL RESPIRATION 04/03/2013 ERIKA ANDREWS MD 719.47 PAIN IN JOINT INVOLVING ANKLE AND FOOT 04/03/2013 [place] URIBE 719.47 PAIN IN JOINT INVOLVING ANKLE AND FOOT 04/03/2013 PRAMOD FRANCO APRN 719.47 PAIN IN JOINT INVOLVING ANKLE AND FOOT 04/03/2013 CLEMENCIA SIMS DO 719.47 PAIN IN JOINT INVOLVING ANKLE AND FOOT 04/03/2013 ERIKA ANDREWS MD 719.47 PAIN IN JOINT INVOLVING ANKLE AND FOOT 04/03/2013 ERIKA ANDREWS MD 719.47 PAIN IN JOINT INVOLVING ANKLE AND FOOT 04/03/2013 [place] URIBE 719.47 PAIN IN JOINT INVOLVING ANKLE AND FOOT 04/03/2013 [place] URIBE 719.47 PAIN IN JOINT INVOLVING ANKLE AND FOOT 04/03/2013 PUJA ROBLEDO APRN 719.47 PAIN IN JOINT INVOLVING ANKLE AND FOOT 04/03/2013 CLEMENCIA SIMS DO 719.47 PAIN IN JOINT INVOLVING ANKLE AND FOOT 04/03/2013 MEGHAN PERRY MD 719.47 PAIN IN JOINT INVOLVING ANKLE AND FOOT 04/03/2013 ANNEMARIE ESTRADA APRN 719.47 PAIN IN JOINT INVOLVING ANKLE AND FOOT 04/03/2013 ERIKA ANDREWS MD 719.47 PAIN IN JOINT INVOLVING ANKLE AND FOOT 04/03/2013 ERIKA ANDREWS MD 719.47 PAIN IN JOINT INVOLVING ANKLE AND FOOT 04/03/2013 ANNEMARIE ESTRADA APRN 719.47 PAIN IN JOINT INVOLVING ANKLE AND FOOT 04/03/2013 ANNEMARIE ESTRADA APRN 719.47 PAIN IN JOINT INVOLVING ANKLE AND FOOT 04/03/2013 ERIKA ANDREWS MD 719.47 PAIN IN JOINT INVOLVING ANKLE AND FOOT 04/03/2013 [place] URIBE 719.47 PAIN IN JOINT INVOLVING ANKLE AND FOOT 04/03/2013 MEGHAN PERRY MD 719.47 PAIN IN JOINT INVOLVING ANKLE AND FOOT 04/03/2013 ERIKA ANDREWS MD 719.47 PAIN IN JOINT INVOLVING ANKLE AND FOOT 04/03/2013 ANNEMARIE ESTRADA APRN 719.47 PAIN IN JOINT INVOLVING ANKLE AND FOOT 04/03/2013 ERIKA ANDREWS MD 719.47 PAIN IN JOINT INVOLVING ANKLE AND FOOT 04/03/2013 ERIKA ANDREWS MD 719.47 PAIN IN JOINT INVOLVING ANKLE AND FOOT 04/03/2013 ERIKA ANDREWS MD 719.47 PAIN IN JOINT INVOLVING ANKLE AND FOOT 04/03/2013 ERIKA ANDREWS MD 719.47 PAIN IN JOINT INVOLVING ANKLE AND FOOT 05/11/2013 CLEMENCIA SIMS DO K 356.9 NEUROPATHY 05/11/2013 CLEMENCIA SIMS DO K 443.0 RAYNAUD'S SYNDROME 05/11/2013 CLEMENCIA SIMS DO K 701.1 HYPERKERATOSIS 05/11/2013 ERIKA ANDREWS MD N 356.9 NEUROPATHY 05/11/2013 ERIKA ANDREWS MD N 443.0 RAYNAUD'S SYNDROME 05/11/2013 ERIKA ANDREWS MD N 701.1 HYPERKERATOSIS 05/11/2013 ERIKA ANDREWS MD N 356.9 NEUROPATHY 05/11/2013 ERIKA ANDREWS MD N 443.0 RAYNAUD'S SYNDROME 05/11/2013 ERIKA ANDREWS MD N 701.1 HYPERKERATOSIS 05/11/2013 [facility], [place] R 356.9 NEUROPATHY 05/11/2013 [facility], [place] R 443.0 RAYNAUD'S SYNDROME 05/11/2013 [facility], [place] R 701.1 HYPERKERATOSIS 05/11/2013 [facility], [place] R 356.9 NEUROPATHY 05/11/2013 [facility] [place] R 443.0 RAYNAUD'S SYNDROME 05/11/2013 [facility], [place] R 701.1 HYPERKERATOSIS 05/11/2013 PUJA ROBLEDO APRN R 356.9 NEUROPATHY 05/11/2013 PUJA ROBLEDO APRN R 443.0 RAYNAUD'S SYNDROME 05/11/2013 EMENA ANAYA PUJA R 701.1 HYPERKERATOSIS 05/11/2013 SIMS DO, CLEMENCIA K 356.9 NEUROPATHY 05/11/2013 BETHANY MTZ CLEMENCIA K 443.0 RAYNAUD'S SYNDROME 05/11/2013 BETHANY MTZ, CLEMENCIA K 701.1 HYPERKERATOSIS 05/11/2013 MEGHAN PERRY MD 356.9 NEUROPATHY 05/11/2013 MEGHAN PERRY MD 443.0 RAYNAUD'S SYNDROME 05/11/2013 MEGHAN PERRY MD 701.1 HYPERKERATOSIS 05/11/2013 SEAN KNOWLEDGE ANALYST, ANNEMARIE 356.9 NEUROPATHY 05/11/2013 SEAN KNOWLEDGE ANALYST, ANNEMARIE 443.0 RAYNAUD'S SYNDROME 05/11/2013 SEAN KNOWLEDGE ANALYST, ANNEMARIE 701.1 HYPERKERATOSIS 05/11/2013 ERIKA ANDREWS MD N 356.9 NEUROPATHY 05/11/2013 REIKA ANDREWS MD N 443.0 RAYNAUD'S SYNDROME 05/11/2013 ERIKA ANDREWS MD N 701.1 HYPERKERATOSIS 05/11/2013 ERIKA ANDREWS MD N 356.9 NEUROPATHY 05/11/2013 ERIKA ANDREWS MD N 443.0 RAYNAUD'S SYNDROME 05/11/2013 ERIKA ANDREWS MD N 701.1 HYPERKERATOSIS 05/11/2013 SEAN KNOWLEDGE ANALYST, ANNEMARIE 356.9 NEUROPATHY 05/11/2013 SEAN KNOWLEDGE ANALYST, ANNEMARIE 443.0 RAYNAUD'S SYNDROME 05/11/2013 SEAN KNOWLEDGE ANALYST, ANNEMARIE 701.1 HYPERKERATOSIS 05/11/2013 SEAN KNOWLEDGE ANALYST, ANNEMARIE 356.9 NEUROPATHY 05/11/2013 SEAN KNOWLEDGE ANALYST, ANNEMARIE 443.0 RAYNAUD'S SYNDROME 05/11/2013 SEAN KNOWLEDGE ANALYST, ANNEMARIE 701.1 HYPERKERATOSIS 05/11/2013 ERIKA ANDREWS MD N 356.9 NEUROPATHY 05/11/2013 ERIKA ANDREWS MD N 443.0 RAYNAUD'S SYNDROME 05/11/2013 ERIKA ANDREWS MD N 701.1 HYPERKERATOSIS 05/11/2013 [facility].9 [facility] 05/11/2013 [facility] [place] R 443.0 RAYNAUD'S SYNDROME 05/11/2013 [facility], [place] R 701.1 HYPERKERATOSIS 05/11/2013 MEGHAN PERRY MD 356.9 NEUROPATHY 05/11/2013 MEGHAN PERRY MD 443.0 RAYNAUD'S SYNDROME 05/11/2013 MEGHAN PERRY MD 701.1 HYPERKERATOSIS 05/11/2013 ERIKA ANDREWS MD N 356.9 NEUROPATHY 05/11/2013 ERIKA ANDREWS MD N 443.0 RAYNAUD'S SYNDROME 05/11/2013 ERIKA ANDREWS MD N 701.1 HYPERKERATOSIS 05/11/2013 ANNEMARIE ESTRADA APRN 356.9 NEUROPATHY 05/11/2013 ANNEMARIE ESTRADA APRN 443.0 RAYNAUD'S SYNDROME 05/11/2013 ANNEMARIE ESTRADA APRN 701.1 HYPERKERATOSIS 05/11/2013 ERIKA ANDREWS MD N 356.9 NEUROPATHY 05/11/2013 ERIKA ANDREWS MD N 443.0 RAYNAUD'S SYNDROME 05/11/2013 ERIKA ANDREWS MD N 701.1 HYPERKERATOSIS 05/11/2013 ERIKA ANDREWS MD N 356.9 NEUROPATHY 05/11/2013 ERIKA ANDREWS MD N 443.0 RAYNAUD'S SYNDROME 05/11/2013 ERIKA ANDREWS MD N 701.1 HYPERKERATOSIS 05/11/2013 ERIKA ANDREWS MD N 356.9 NEUROPATHY 05/11/2013 ERIKA ANDREWS MD N 443.0 RAYNAUD'S SYNDROME 05/11/2013 ERIKA ANDREWS MD N 701.1 HYPERKERATOSIS 05/11/2013 ERIKA ANDREWS MD N 356.9 NEUROPATHY 05/11/2013 ERIKA ANDREWS MD N 443.0 RAYNAUD'S SYNDROME 05/11/2013 ERIKA ANDREWS MD N 701.1 HYPERKERATOSIS 05/19/2013 RUSH ANDERSEN DO Ot 345.90 EPILEPSY UNSPEC W/O MENTION INTRACTABLE 07/13/2013 CLEMENCIA SIMS DO 733.99 HYPERTROPHIC MET HEAD 07/13/2013 MEGHAN PERRY MD 733.99 HYPERTROPHIC MET HEAD 07/13/2013 SEAN ANAYA ANNEMARIE 733.99 HYPERTROPHIC MET HEAD 07/13/2013 ERIKA ANDREWS MD N 733.99 HYPERTROPHIC MET HEAD 07/13/2013 ERIKA ANDREWS MD N 733.99 HYPERTROPHIC MET HEAD 07/13/2013 ANNEMARIE ESTRADA APRN 733.99 HYPERTROPHIC MET HEAD 07/13/2013 SEAN ANAYA ANNEMARIE 733.99 HYPERTROPHIC MET HEAD 07/13/2013 ERIKA ANDREWS MD N 733.99 HYPERTROPHIC MET HEAD 07/13/2013 [facility] [place] R 733.99 HYPERTROPHIC MET HEAD 07/13/2013 MEGHAN PERRY MD 733.99 HYPERTROPHIC MET HEAD 07/13/2013 ERIKA ANDREWS MD N 733.99 HYPERTROPHIC MET HEAD 07/13/2013 SEAN ANAYA ANNEMARIE 733.99 HYPERTROPHIC MET HEAD 07/13/2013 ERIKA ANDREWS MD N 733.99 HYPERTROPHIC MET HEAD 07/13/2013 ERIKA ANDREWS MD N 733.99 HYPERTROPHIC MET HEAD 07/13/2013 ERIKA ANDREWS MD N 733.99 HYPERTROPHIC MET HEAD 07/13/2013 ERIKA ANDREWS MD N 733.99 HYPERTROPHIC MET HEAD 10/02/2013 ANNEMARIE ESTRADA APRN 296.55 MO BIPOLAR I DEPRESSED IN PART OR UNSPECIFIED REMISSION 10/02/2013 ANNEMARIE ESTRADA APRN 296.55 MO BIPOLAR I DEPRESSED IN PART OR UNSPECIFIED REMISSION 10/02/2013 ERIKA ANDREWS MD N 296.55 MO BIPOLAR I DEPRESSED IN PART OR UNSPECIFIED REMISSION 10/02/2013 [facility] [place] R 296.55 MO BIPOLAR I DEPRESSED IN PART OR UNSPECIFIED REMISSION 10/02/2013 MEGHAN PERRY MD 296.55 MO BIPOLAR I DEPRESSED IN PART OR UNSPECIFIED REMISSION 10/02/2013 ERIKA ANDREWS MD N 296.55 MO BIPOLAR I DEPRESSED IN PART OR UNSPECIFIED REMISSION 10/02/2013 ANNEMARIE ESTRADA APRN 296.55 MO BIPOLAR I DEPRESSED IN PART OR UNSPECIFIED REMISSION 10/02/2013 ERIKA ANDREWS MD N 296.55 MO BIPOLAR I DEPRESSED IN PART OR UNSPECIFIED REMISSION 10/02/2013 ERIKA ANDREWS MD N 296.55 MO BIPOLAR I DEPRESSED IN PART OR UNSPECIFIED REMISSION 10/02/2013 ERIKA ANDREWS MD N 296.55 MO BIPOLAR I DEPRESSED IN PART OR UNSPECIFIED REMISSION 10/02/2013 ERIKA ANDREWS MD N 296.55 MO BIPOLAR I DEPRESSED IN PART OR UNSPECIFIED REMISSION 11/30/2013 MEGHAN PERRY MD 686.9 UNSPECIFIED LOCAL INFECTION OF SKIN AND SUBCUTANEOUS TISSUE 11/30/2013 ERIKA ANDREWS MD 686.9 UNSPECIFIED LOCAL INFECTION OF SKIN AND SUBCUTANEOUS TISSUE 11/30/2013 ANNEMARIE ESTRADA APRN 686.9 UNSPECIFIED LOCAL INFECTION OF SKIN AND SUBCUTANEOUS TISSUE 11/30/2013 ERIKA ANDREWS MD N 686.9 UNSPECIFIED LOCAL INFECTION OF SKIN AND SUBCUTANEOUS TISSUE 11/30/2013 ERIKA ANDREWS MD 686.9 UNSPECIFIED LOCAL INFECTION OF SKIN AND SUBCUTANEOUS TISSUE 11/30/2013 ERIKA ANDREWS MD N 686.9 UNSPECIFIED LOCAL INFECTION OF SKIN AND SUBCUTANEOUS TISSUE 11/30/2013 ERIKA ANDREWS MD 686.9 UNSPECIFIED LOCAL INFECTION OF SKIN AND SUBCUTANEOUS TISSUE 04/11/2014 ERIKA ANDREWS MD N 272.4 HYPERLIPIDEMIA 04/11/2014 ERIKA ANDREWS MD N 272.4 HYPERLIPIDEMIA 09/20/2014 Ot 345.90 09/20/2014 ERIKA ANDREWS MD Ot 345.90 09/20/2014 ERIKA ANDREWS MD Ot 401.1 09/20/2014 ERIKA ANDREWS MD Ot 780.2 09/20/2014 ERIKA ANDREWS MD Ot 784.0 09/20/2014 ERIKA ANDREWS MD Ot 786.59 09/24/2014 Ot 345.90 09/24/2014 ERIKA ANDREWS MD Ot 345.90 09/24/2014 ERIKA ANDREWS MD N Ot 401.1 09/24/2014 ERIKA ANDREWS MD Ot 780.2 09/24/2014 ERIKA ANDREWS MD Ot 784.0 09/24/2014 ERIKA ANDREWS MD Ot 786.59 10/09/2014 Ot 345.90 10/09/2014 ERIKA ANDREWS MD Ot 345.90 10/09/2014 ERIKA ANDREWS MD Ot 401.1 10/09/2014 ERIKA ANDREWS MD Ot 780.2 10/09/2014 ERIKA ANDREWS MD Ot 784.0 10/09/2014 ERIKA ANDREWS MD Ot 786.59 10/09/2014 ERIKA ANDREWS MD N Ot 724.4 11/18/2014 ERIKA ANDREWS MD Ot 724.4 12/10/2014 ERIKA ANDREWS MD Ot 724.4 07/05/2016 Ot 345.90 EPILEPSY UNSPEC W/O MENTION INTRACTABLE 07/05/2016 ERIKA ANDREWS MD N Ot 345.90 EPILEPSY UNSPEC W/O MENTION INTRACTABLE 07/05/2016 ERIKA ANDREWS MD Ot 401.1 BENIGN HYPERTENSION 07/05/2016 ERIKA ANDREWS MD Ot 780.2 SYNCOPE AND COLLAPSE 07/05/2016 ERIKA ANDREWS MD Ot 784.0 HEADACHE 07/05/2016 ERIKA ANDREWS MD Ot 786.59 CHEST PAIN NEC 07/05/2016 ERIKA ANDREWS MD Ot 724.4 LUMBOSACRAL NEURITIS NOS 07/05/2016 ERIKA ANDREWS MD Ot 724.4 LUMBOSACRAL NEURITIS NOS 07/05/2016 RUSH HA KNOWLEDGE ANALYST Ot H10.31 UNSPECIFIED ACUTE CONJUNCTIVITIS, RIGHT 07/05/2016 RUSH HA KNOWLEDGE ANALYST Ot H57.9 UNSPECIFIED DISORDER OF EYE AND ADNEXA 07/05/2016 RUSH HA KNOWLEDGE ANALYST Ot 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 07/05/2016 Ot 345.90 EPILEPSY UNSPEC W/O MENTION INTRACTABLE 07/05/2016 ERIKA ANDREWS MD Ot 345.90 EPILEPSY UNSPEC W/O MENTION INTRACTABLE 07/05/2016 ERIKA ANDREWS MD Ot 401.1 BENIGN HYPERTENSION 07/05/2016 ERIKA ANDREWS MD N Ot 780.2 SYNCOPE AND COLLAPSE 07/05/2016 ERIKA ANDREWS MD N Ot 784.0 HEADACHE 07/05/2016 ERIKA ANDREWS MD N Ot 786.59 CHEST PAIN NEC 07/05/2016 ERIKA ANDREWS MD Ot 724.4 LUMBOSACRAL NEURITIS NOS 07/05/2016 ERIKA ANDREWS MD Ot 724.4 LUMBOSACRAL NEURITIS NOS 07/06/2016 RUSH HA APRN Ot H10.31 UNSPECIFIED ACUTE CONJUNCTIVITIS, RIGHT 07/06/2016 RUSH HA APRN Ot H57.9 UNSPECIFIED DISORDER OF EYE AND ADNEXA 07/06/2016 RUSH HA APRN Ot 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 07/11/2016 RUSH HA KNOWLEDGE ANALYST Ot H10.31 UNSPECIFIED ACUTE CONJUNCTIVITIS, RIGHT 07/11/2016 RUSH HA APRN Ot H57.9 UNSPECIFIED DISORDER OF EYE AND ADNEXA 07/11/2016 RUSH HA APRN Ot Z79.899 OTHER HALF-WAY (CURRENT) DRUG THERAPY 10/14/2016 Ot 345.90 EPILEPSY UNSPEC W/O MENTION INTRACTABLE 10/14/2016 ERIKA ANDREWS MD Ot 345.90 EPILEPSY UNSPEC W/O MENTION INTRACTABLE 10/14/2016 ERIKA ANDREWS MD Ot 401.1 BENIGN HYPERTENSION 10/14/2016 ERIKA ANDREWS MD Ot 780.2 SYNCOPE AND COLLAPSE 10/14/2016 ERIKA ANDREWS MD Ot 784.0 HEADACHE 10/14/2016 ERIKA ANDREWS MD Ot 786.59 CHEST PAIN NEC 10/14/2016 ERIKA ANDREWS MD Ot 724.4 LUMBOSACRAL NEURITIS NOS 10/14/2016 ERIKA ANDREWS MD Ot 724.4 LUMBOSACRAL NEURITIS NOS 03/16/2018 ERIKA ANDRWES MD Ot 345.90 EPILEPSY UNSPEC W/O MENTION INTRACTABLE 03/16/2018 ERIKA ANDREWS MD N Ot 401.1 BENIGN HYPERTENSION 03/16/2018 ERIKA ANDREWS MD Ot 780.2 SYNCOPE AND COLLAPSE 03/16/2018 ERIKA ANDREWS MD Ot 784.0 HEADACHE 03/16/2018 ERIKA ANDREWS MD Ot 786.59 CHEST PAIN NEC 03/16/2018 ERIKA ANDREWS MD Ot 724.4 LUMBOSACRAL NEURITIS NOS 03/16/2018 ERIKA ANDREWS MD Ot 724.4 LUMBOSACRAL NEURITIS NOS 03/20/2018 HENRY MILLER MD Ot A08.4 VIRAL INTESTINAL INFECTION, UNSPECIFIED 03/20/2018 HENRY MILLER MD Ot E86.0 DEHYDRATION 03/20/2018 HENRY MILLER MD Ot F31.9 BIPOLAR DISORDER, UNSPECIFIED 03/20/2018 HENRY MILLER MD Ot G43.909 MIGRAINE, UNSP, NOT INTRACTABLE, WITHOUT 03/20/2018 HENRY MILLER MD J Ot I10 ESSENTIAL (PRIMARY) HYPERTENSION 03/20/2018 HENRY MILLER MD Ot R11.2 NAUSEA WITH VOMITING, UNSPECIFIED 03/20/2018 HENRY MILLER MD Ot Z82.49 FAMILY HX OF ISCHEM HEART DIS AND OTH DI 03/20/2018 HENRY MILLER MD Ot Z87.19 PERSONAL HISTORY OF OTHER DISEASES OF TH 03/20/2018 HENRY MILLER MD Ot Z87.891 PERSONAL HISTORY OF NICOTINE DEPENDENCE 03/22/2018 HENRY MILLER MD Ot A08.4 VIRAL INTESTINAL INFECTION, UNSPECIFIED 03/22/2018 HENRY MILLER MD Ot E86.0 DEHYDRATION 03/22/2018 HENRY MILLER MD Ot F31.9 BIPOLAR DISORDER, UNSPECIFIED 03/22/2018 HENRY MILLER MD Ot G43.909 MIGRAINE, UNSP, NOT INTRACTABLE, WITHOUT 03/22/2018 HENRY MILLER MD Ot I10 ESSENTIAL (PRIMARY) HYPERTENSION 03/22/2018 HENRY MILLER MD Ot R11.2 NAUSEA WITH VOMITING, UNSPECIFIED 03/22/2018 HENRY MILLER MD Ot Z82.49 FAMILY HX OF ISCHEM HEART DIS AND OTH DI 03/22/2018 HENRY MILLER MD Ot Z87.19 PERSONAL HISTORY OF OTHER DISEASES OF TH 03/22/2018 HENRY MILLER MD Ot Z87.891 PERSONAL HISTORY OF NICOTINE DEPENDENCE Procedures Code [place] [address] EEG 02/23/2012 Neurology Efraín Mahajan 02/25/2012 82656 EKG, TRACING (IN-HOUSE) 09/06/2012 65715 PSYTX PT&/FAMILY 45 MINUTES 11/16/2012 99314 ROUTINE VENIPUNCTURE 12/12/2012 1034985 GFR CALC (RESULT ONLY) 12/12/2012 08387 CMP 12/12/2012 46010 LIPID PANEL 12/12/[address] HEAD/BRAIN W/O DYE 02/20/2013 01400 STRESS TEST, CARDIAC ( SPECIFY TYPE) 02/20/2013 69649 PSYTX PT&/FAMILY 45 MINUTES 03/02/2013 65273 ROUTINE VENIPUNCTURE 04/03/2013 07608 VIT B 12 04/03/2013 24150 FOLATE 04/03/2013 69081 CBC 04/03/2013 PODIATRY DASHA MANDEL 04/03/2013 65547 PSYTX PT&/FAMILY 45 MINUTES 04/05/2013 41842 PSYTX PT&/FAMILY 45 MINUTES 06/05/2013 86040 VALPROIC ACID / DEPAKOTE 08/15/2013 39516 ROUTINE VENIPUNCTURE 08/15/2013 48743 PSYTX PT&/FAMILY 30 MINUTES 11/06/2013 97841 ROUTINE VENIPUNCTURE 12/27/2013 15528 VALPROIC ACID / DEPAKOTE 12/27/2013 41105 ROUTINE VENIPUNCTURE 01/09/2014 8431978 GFR CALC (RESULT ONLY) 01/09/2014 58768 CMP 01/09/2014 76519 VALPROIC ACID / DEPAKOTE 01/09/2014 Results Test Result Range CBC With Differential/Platelet - 09/16/16 10:46 WBC 9.1 x10E3/uL 3.4-10.8 RBC 4.73 x10E6/uL 4.14-5.80 Hemoglobin 14.4 g/dL 12.6-17.7 Hematocrit 43.0 % 37.5-51.0 MCV 91 fL 79-97 MCH 30.4 pg 26.6-33.0 MCHC 33.5 g/dL 31.5-35.7 RDW 13.4 % 12.3-15.4 Platelets 338 x10E3/uL 150-379 Neutrophils 56 % Lymphs 35 % Monocytes 6 % Eos 2 % Basos 1 % Neutrophils (Absolute) 5.2 x10E3/uL 1.4-7.0 Lymphs (Absolute) 3.2 x10E3/uL 0.7-3.1 Monocytes(Absolute) 0.5 x10E3/uL 0.1-0.9 Eos (Absolute) 0.2 x10E3/uL 0.0-0.4 Baso (Absolute) 0.1 x10E3/uL 0.0-0.2 Immature Granulocytes 0 % Immature Grans (Abs) 0.0 x10E3/uL 0.0-0.1 Comp. Metabolic Panel (14) - 09/16/16 10:46 Glucose, Serum 106 mg/dL 65-99 BUN 18 mg/dL 6-24 Creatinine, Serum 1.14 mg/dL 0.76-1.27 eGFR If NonAfricn Am 80 mL/min/1.73 >59 eGFR If Africn Am 92 mL/min/1.73 >59 BUN/Creatinine Ratio 16 9-20 Sodium, Serum 140 mmol/L 134-144 Potassium, Serum 4.6 mmol/L 3.5-5.2 Chloride, Serum 99 mmol/L 96-106 Carbon Dioxide, Total 21 mmol/L 18-29 Calcium, Serum 9.4 mg/dL 8.7-10.2 Protein, Total, Serum 7.0 g/dL 6.0-8.5 Albumin, Serum 4.4 g/dL 3.5-5.5 Globulin, Total 2.6 g/dL 1.5-4.5 A/G Ratio 1.7 1.2-2.2 Bilirubin, Total 0.7 mg/dL 0.0-1.2 Alkaline Phosphatase, S 107 IU/L 39-117 AST (SGOT) 17 IU/L 0-40 ALT (SGPT) 22 IU/L 0-44 Hepatitis Panel (4) - 09/16/16 10:46 HBsAg Screen Negative Negative Hep A Ab, IgM Negative Negative Hep B Core Ab, IgM Negative Negative Hep C Virus Ab <0.1 s/co ratio 0.0-0.9 Encounters ACCT No. Visit Date/Time Discharge Status Pt. Type Provider Facility Loc./Unit Complaint [id number] 05/30/2014 09:14:00 05/30/2014 23:59:59 CLS Outpatient ERIKA ANDREWS MD [id number] 04/11/2014 15:06:00 04/11/2014 23:59:59 CLS Outpatient ERIKA ANDREWS MD [id number] 03/19/2014 10:31:00 03/19/2014 23:59:59 CLS Outpatient FLETCHER JONES DDS [id number] 03/07/2014 15:40:00 03/07/2014 23:59:59 CLS Outpatient ERIKA ANDREWS MD [id number] 01/09/2014 12:32:00 01/09/2014 23:59:59 CLS Outpatient ERIKA ANDREWS MD [id number] 01/01/2014 16:22:00 01/01/2014 23:59:59 CLS Outpatient ANNEMARIE ESTRADA APRN [id number] 12/27/2013 09:27:00 12/27/2013 23:59:59 CLS Outpatient ERIKA ANDREWS MD [id number] 11/30/2013 15:42:00 11/30/2013 23:59:59 CLS Outpatient MEGHAN PERRY MD [id number] 11/06/2013 17:12:00 11/06/2013 23:59:59 CLS Outpatient [place] URI[place] [id number] 11/06/2013 15:41:00 11/06/2013 23:59:59 CLS Outpatient ERIKA ANDREWS MD [id number] 10/02/2013 09:08:00 10/02/2013 23:59:59 CLS Outpatient ANNEMARIE ESTRADA APRN [id number] 10/02/2013 09:08:00 10/02/2013 23:59:59 CLS Outpatient ANNEMARIE ESTRADA APRN [id number] 08/15/2013 08:53:00 08/15/2013 23:59:59 CLS Outpatient ERIKA ANDREWS MD [id number] 08/14/2013 08:56:00 08/14/2013 23:59:59 CLS Outpatient ERIKA ANDREWS MD [id number] 07/17/2013 15:43:00 07/17/2013 23:59:59 CLS Outpatient MEGHAN PERRY MD [id number] 07/13/2013 07:53:00 07/13/2013 23:59:59 CLS Outpatient CLEMENCIA SIMS DO [id number] 07/11/2013 00:00:00 07/11/2013 23:59:59 CLS Outpatient ANNEMARIE ESTRADA APRN [id number] 07/04/2013 10:28:00 07/04/2013 23:59:59 CLS Outpatient PUJA ROBLEDO APRN [id number] 06/05/2013 10:55:00 06/05/2013 23:59:59 CLS Outpatient [place] URI[place] [id number] 05/28/2013 00:00:00 05/28/2013 23:59:59 CLS Outpatient [facility], [place] [id number] 05/15/2013 09:05:00 05/15/2013 23:59:59 CLS Outpatient ERIKA ANDREWS MD [id number] 05/11/2013 08:57:00 05/11/2013 23:59:59 CLS Outpatient CLEMENCIA SIMS DO [id number] 05/04/2013 00:00:00 05/04/2013 23:59:59 CLS Outpatient ERIKA ANDREWS MD [id number] 04/28/2013 11:55:00 04/28/2013 23:59:59 CLS Outpatient PRAMOD FRANCO APRN [id number] 04/05/2013 10:37:00 04/05/2013 23:59:59 CLS Outpatient [facility], [place] Clifford [id number] 04/03/2013 10:03:00 04/03/2013 23:59:59 CLS Outpatient ERIKA ANDREWS MD [id number] 03/02/2013 09:34:00 03/02/2013 23:59:59 CLS Outpatient [facility], [place] Clifford [id number] 02/20/2013 08:39:00 02/20/2013 23:59:59 CLS Outpatient ERIKA ANDREWS MD [id number] 12/13/2012 09:21:00 12/13/2012 23:59:59 CLS Outpatient CLEMENCIA SIMS DO [id number] 12/12/2012 09:54:00 12/12/2012 23:59:59 CLS Outpatient ERIKA ANDREWS MD [id number] 11/16/2012 09:50:00 11/16/2012 23:59:59 CLS Outpatient [facility], [place] [id number] 11/01/2012 13:53:00 11/01/2012 23:59:59 CLS Outpatient CELSO WHITE DO [id number] 02/23/2012 13:08:00 02/23/2012 23:59:59 CLS Outpatient CLEMENCIA SIMS DO [id number] 10/11/2012 12:10:00 Document Registration [id number] 09/27/2012 09:59:00 Document Registration [id number] 08/17/2012 16:56:00 Document Registration [id number] 07/19/2012 14:41:00 Document Registration [id number] 09/17/2016 09:09:00 Document Registration [id number] 09/15/2017 13:30:00 09/15/2017 23:59:59 CLS Outpatient DEANNA MAJOR [facility] [place] [id number] 03/16/2018 12:48:00 03/16/2018 14:01:00 DIS Outpatient HENRY MILLER MD [facility] ER BURNING WITH URINATION;N/V ;SEIZURES [id number] 07/05/2016 11:43:00 07/05/2016 12:47:00 DIS Emergency RUSH HA APRN [facility] ER RIGHT EYE SWOLLEN [id number] 10/09/2014 14:01:00 10/09/2014 23:59:59 CLS Outpatient ERIKA ANDREWS MD [facility] RAD LUMBAR RADICULOPATHY [id number] 09/24/2014 07:51:00 09/24/2014 23:59:59 CLS Outpatient ERIKA ANDREWS MD [facility] RAD LUMBAR RADICULAPATHY [id number] 05/19/2013 22:04:00 05/19/2013 23:25:00 DIS Emergency NATHALY DORUSH K [facility] ER SEIZURE [id number] 03/06/2013 09:30:00 03/06/2013 23:59:59 CLS Outpatient ERIKA ANDREWS MD [facility] RAD ATYPICAL CHEST PAIN, SEIZURE BLACKING OUT,HEADACHE [id number] 02/21/2013 16:28:00 02/21/2013 19:03:00 DIS Emergency CRIS MORENO MD [facility] ER CP [id number] 09/26/2012 17:25:00 09/27/2012 01:53:00 DIS Emergency CRIS MORENO MD [facility] ER SUICIDAL IDEATION [id number] 02/28/2012 11:29:00 Document Registration [id number] 02/28/2012 09:38:00 Document Registration [id number] 02/18/2010 10:48:00 Document Registration [id number] 08/25/2009 00:07:00 Document Registration [id number] 01/16/2018 09:20:00 01/16/2018 23:59:59 CLS Shefali ANDREWS MD, [facility]
[2018-05-01] MEDS ORDERED: LACTATED RINGERS 1,000 ML IV ONE ×2 (12:58)
[2018-05-01] MEDS ORDERED: ONDANSETRON 4 MG/2 ML (SDV) Z0FRAN IV PRN (13:00)
--- NOTE | 2018-05-01 13:16 | ED Cough/URI ---
General Chief Complaint: Cough/Cold/Flu Symptoms Stated Complaint: NAUSEA, THROWING UP Source: patient Exam Limitations: no limitations History of Present Illness Date Seen by Provider: May 01, 2018 Time Seen by Provider: 12:50 Initial Comments Patient presents to ER by private conveyance with chief complaint of 3 days of sweats, cough, nasal congestion, sore throat, runny nose and ears feeling under water. He has been having fevers which she's been treating with Tylenol last dose at 4:30 this morning. No significant respiratory history. He does take some medicines for blood pressure and mood stabilizers. A lot of people in his family were diagnosed with influenza last week. He's had nausea with vomiting and unable to tolerate his gabapentin which he uses for seizures. Allergies and Home Medications Allergies Coded Allergies: KRISTINEANo Known Allergies (Unverified Allergy, Mild, 06/27/09) Home Medications Erythromycin Base 1 Gm Oint...g., 0 OP Q6H 1/2 inch Q6 hours x5 days Prescribed by: RUSH HA on 07/05/16 1216 Gabapentin 400 Mg Cap, 800 MG PO TID, (Reported) Ibuprofen 800 Mg Tablet, 800 MG PO Q8H PRN for PAIN Prescribed by: CRIS APONTE on 02/21/13 1848 Levetiracetam 500 Mg Tablet, 1 EACH PO BID, (Reported) Ondansetron 4 Mg Tab.rapdis, 4 MG PO Q6H PRN for NAUSEA/VOMITING Prescribed by: HENRY MILLER on 03/16/18 1356 Risperidone 3 Mg Tablet, 2 MG PO HS, (Reported) Patient Home Medication List Home Medication List Reviewed: Yes Review of Systems Review of Systems Constitutional: chills, fever, malaise, weakness EENTM: hoarseness, nose congestion, throat pain; No ear discharge, No ear pain , No tearing, No vision loss Respiratory: cough; No phlegm; short of breath Cardiovascular: No chest pain, No edema Gastrointestinal: No abdominal pain; nausea, vomiting Genitourinary: No discharge, No dysuria Musculoskeletal: No back pain, No joint pain Past Xnplkdy-Hcaupo-Qhssuy Hx Patient Social History Alcohol Use: Denies Use Recreational Drug Use: No Smoking Status: Former Smoker Type Used: Cigarettes Former Smoker, Quit: June 21, 2006 2nd Hand Smoke Exposure: No Recent Foreign Travel: No Contact w/Someone Who Travel: No Recent Hopitalizations: No Immunizations Up To Date Tetanus Booster (TDap): Unknown Seasonal Allergies Seasonal Allergies: No Past Medical History Surgeries: Yes (R EYE, surgery for facial trauma, BACK) Respiratory: No Cardiac: Yes Hypertension Neurological: Yes Headaches /Migraines Genitourinary: No Gastrointestinal: No Musculoskeletal: Yes Chronic Back Pain Endocrine: No Cancer: No Psychosocial: Yes Bipolar, Personality Disorder Integumentary: No Family Medical History Heart Disease, Diabetes, Hypertension Physical Exam Vital Signs - First Documented 05/01/18 12:47 Temp 98.9 Pulse 116 Resp 18 B/P (MAP) 121/90 (100) Pulse Ox 98 O2 Delivery Room Air Capillary Refill : Height: 6'2.00" Weight: 252lbs. oz. 114.254294uo; 35.95 BMI Method:Stated General Appearance: WD/WN, mild distress Eyes: Bilateral Eye Normal Inspection, Bilateral Eye PERRL, Bilateral Eye EOMI HEENT: PERRL/EOMI, normal ENT inspection, TMs normal, other (nasal congestion) Neck: non-tender, full range of motion, normal inspection Respiratory: lungs clear, normal breath sounds, no respiratory distress, no accessory muscle use Cardiovascular: normal peripheral pulses, regular rate, rhythm, no edema Gastrointestinal: normal bowel sounds, non tender, soft Neurologic/Psychiatric: alert, normal mood/affect, oriented x 3 Skin: normal color, diaphoresis Progress/Results/Core Measures Suspected Sepsis SIRS Temperature: Pulse: Respiratory Rate: Laboratory Tests 05/01/18 12:59: White Blood Count 6.2 Blood Pressure / Mean: Laboratory Tests 05/01/18 12:59: Creatinine 1.23, INR Comment 1.0, Platelet Count 224, Total Bilirubin 0.4 Results/Orders Lab Results Laboratory Tests Test 05/01/18 12:59 Range/Units White Blood Count 6.2 4.3-11.0 10^3/uL Red Blood Count 4.79 4.35-5.85 10^6/uL Hemoglobin 14.8 13.3-17.7 G/DL Hematocrit 42 40-54 % Mean Corpuscular Volume 88 80-99 FL Mean Corpuscular Hemoglobin 31 25-34 PG Mean Corpuscular Hemoglobin Concent 35 32-36 G/DL Red Cell Distribution Width 13.6 10.0-14.5 % Platelet Count 224 130-400 10^3/uL Mean Platelet Volume 9.4 7.4-10.4 FL Neutrophils (%) (Auto) 76 H 42-75 % Lymphocytes (%) (Auto) 13 12-44 % Monocytes (%) (Auto) 10 0-12 % Eosinophils (%) (Auto) 0 0-10 % Basophils (%) (Auto) 1 0-10 % Neutrophils # (Auto) 4.7 1.8-7.8 X 10^3 Lymphocytes # (Auto) 0.8 L 1.0-4.0 X 10^3 Monocytes # (Auto) 0.6 0.0-1.0 X 10^3 Eosinophils # (Auto) 0.0 0.0-0.3 10^3/uL Basophils # (Auto) 0.0 0.0-0.1 10^3/uL Prothrombin Time 12.8 12.2-14.7 SEC INR Comment 1.0 0.8-1.4 Activated Partial Thromboplast Time 36 H 24-35 SEC Sodium Level 138 135-145 MMOL/L Potassium Level 4.2 3.6-5.0 MMOL/L Chloride Level 104 98-107 MMOL/L Carbon Dioxide Level 21 21-32 MMOL/L Anion Gap 13 5-14 MMOL/L Blood Urea Nitrogen 11 7-18 MG/DL Creatinine 1.23 0.60-1.30 MG/DL Estimat Glomerular Filtration Rate > 60 BUN/Creatinine Ratio 9 Glucose Level 124 H 70-105 MG/DL Calcium Level 9.2 8.5-10.1 MG/DL Corrected Calcium 8.8 8.5-10.1 MG/DL Total Bilirubin 0.4 0.1-1.0 MG/DL Aspartate Amino Transf (AST/SGOT) 39 H 5-34 U/L Alanine Aminotransferase (ALT/SGPT) 48 0-55 U/L Alkaline Phosphatase 118 40-136 U/L Total Protein 7.9 6.4-8.2 GM/DL Albumin 4.5 3.2-4.5 GM/DL Micro Results Microbiology 05/01/18 Influenza Types A,B Antigen (NATE) - Final, Complete My Orders Orders - HENRY MILLER Cbc With Automated Diff (05/01/18 12:58) Comprehensive Metabolic Panel (05/01/18 12:58) Protime With Inr (05/01/18 12:58) Partial Thromboplastin Time (05/01/18 12:58) Saline Lock/Iv-Start (05/01/18 12:58) Saline Lock/Iv-Start (05/01/18 12:58) Ekg Tracing (05/01/18 12:58) Vital Signs Adult Sepsis Patie Q15M (05/01/18 12:58) Ondansetron Injection (Zofran Injectio (05/01/18 13:00) O2 (05/01/18 12:58) Remove Rings In Anticipation O (05/01/18 12:58) Lactated Ringers (Lr 1000 Ml Iv Solution (05/01/18 12:58) Saline Lock/Iv-Start (05/01/18 12:58) Lactated Ringers (Lr 1000 Ml Iv Solution (05/01/18 12:58) Influenza A And B Antigens (05/01/18 12:50) Lorazepam Injection (Ativan Injection) (05/01/18 13:30) Chest 1 View, Ap/Pa Only (05/01/18 13:16) Ketorolac Injection (Toradol Injection) (05/01/18 13:30) Ketorolac Injection (Toradol Injection) (05/01/18 13:21) Medications Given in ED Current Medications Medications Dose Ordered Sig/Beena Route Start Time Stop Time Status Last Admin Dose Admin Ketorolac Tromethamine 30 mg ONCE ONCE IVP 05/01/18 13:30 05/01/18 13:31 DC 05/01/18 13:26 30 MG Lactated Ringer's 1,000 ml @ 0 mls/hr Q0M ONCE IV 05/01/18 12:58 05/01/18 13:13 DC 05/01/18 13:26 0 MLS/HR Lorazepam 1 mg ONCE ONCE IVP 05/01/18 13:30 05/01/18 13:31 DC 05/01/18 13:25 1 MG Ondansetron HCl 4 mg PRN PRN IV 05/01/18 13:00 05/01/18 13:26 DC 05/01/18 13:25 4 MG Vital Signs/I&O 05/01/18 05/01/18 12:47 12:47 Temp 98.9 Pulse 116 Resp 18 B/P (MAP) 121/90 (100) Pulse Ox 98 O2 Delivery Room Air Room Air Capillary Refill : Progress Note #1: Time: 14:02 Progress Note Probably meet septic criteria a he has a history of many flu exposures and looks like he has influenza last so we'll just do some basic labs. He is sweating so we'll give her some fluids nausea medicine and Toradol. He is mildly tachycardic afebrile and oxygen sats are 99 and 100% on room air. Progress Note #2: Time: 14:08 Progress Note Patient's feeling much better. We'll let him finish his fluids and go home. His heart rate is down in the low 80s and his oxygen saturation is still 96-100% on room air. Departure Impression Primary Impression: Influenza A Disposition: 01 HOME, SELF-CARE Condition: Improved Departure-Patient Inst. Decision time for Depature: 14:03 Referrals: ERIKA ANDREWS MD (PCP/Family) Primary Care Physician Patient Instructions: Flu, Adult (DC) Add. Discharge Instructions: For body aches fever or chills use Tylenol 1000 mg and/or ibuprofen 800 mg every 8 hours each. Drink plenty of fluids especially sports drinks. Vapor rubs such as Vicks or Mentholatum and humidifiers will be very helpful. Use [id number] symptom relief medicines as necessary. If you have nausea or vomiting you can take one tablet of Zofran every [address] under tongue and it will dissolve. All discharge instructions reviewed with patient and/or family. Voiced understanding. Scripts Ondansetron (Ondansetron Odt) 4 Mg Tab.rapdis 4 MG PO Q6H PRN for NAUSEA/VOMITING, #12 TAB 0 Refills Prov: HENRY MILLER 05/01/18 HENRY MILLER May 01, 2018 13:16
[2018-05-01 13:21] LABS: BASOPHILS % (AUTO) 1 % (0-10); EOSINOPHILS % (AUTO) 0 % (0-10); HEMATOCRIT 42 % (40-54); HEMOGLOBIN 14.8 G/DL (13.3-17.7); LYMPHOCYTES # (AUTO) 0.8 X 10^3 (1.0-4.0); LYMPHOCYTES % (AUTO) 13 % (12-44); MEAN CORPUSCULAR HEMOGLOBIN 31 PG (25-34); MEAN CORPUSCULAR HGB CONC 35 G/DL (32-36); MEAN CORPUSCULAR VOLUME 88 FL (80-99); MEAN PLATELET VOLUME 9.4 FL (7.4-10.4); MONOCYTES # (AUTO) 0.6 X 10^3 (0.0-1.0); MONOCYTES % (AUTO) 10 % (0-12); NEUTROPHILS # (AUTO) 4.7 X 10^3 (1.8-7.8); NEUTROPHILS % (AUTO) 76 % (42-75); PLATELET COUNT 224 10^3/uL (130-400); RED CELL DISTRIBUTION WIDTH 13.6 % (10.0-14.5); WHITE BLOOD COUNT 6.2 10^3/uL (4.3-11.0)
[2018-05-01] MEDS ORDERED: KETOROLAC 30 MG/ML VIAL ONE (13:21)
[2018-05-01 13:27] LABS: PROTHROMBIN TIME PATIENT 12.8 SEC (12.2-14.7)
[2018-05-01] MEDS ORDERED: LORazepam INJ 2 MG/ML (ATIVAN) VIAL IVP ONE (13:30)
[2018-05-01] MEDS ORDERED: KETOROLAC 30 MG/ML VIAL IVP ONE (13:30)
[2018-05-01 13:35] LABS: ALANINE AMINOTRANSFERASE 48 U/L (0-55); ALBUMIN 4.5 GM/DL (3.2-4.5); ALKALINE PHOSPHATASE 118 U/L (40-136); BILIRUBIN,TOTAL 0.4 MG/DL (0.1-1.0); BUN/CREATININE RATIO 9; CALCIUM 9.2 MG/DL (8.5-10.1); CARBON DIOXIDE 21 MMOL/L (21-32); CHLORIDE 104 MMOL/L (98-107); CREATININE SERUM 1.23 MG/DL (0.60-1.30); GFR ESTIMATED > 60; GLUCOSE 124 MG/DL (70-105); POTASSIUM 4.2 MMOL/L (3.6-5.0); SODIUM 138 MMOL/L (135-145); TOTAL PROTEIN 7.9 GM/DL (6.4-8.2)
[2018-05-01] MEDS ORDERED: ONDA4TAB11 PO (14:07)
[2018-05-01 14:20] VITALS: BP 141/92
--- NOTE | 2018-05-01 19:01 | Diagnostic Imaging Report ---
INDICATION: Fever. Comparison made with prior examination 02/21/2013. FINDINGS: Heart size is normal. Lungs are clear. There is no pleural effusion or pneumothorax. Mediastinum is unremarkable. Some minimal venous congestion. IMPRESSION: Questionable minimal venous congestion, otherwise unremarkable. Dictated by: Dictated on workstation # [id number]
== END 2018-05-01 14:20 | disposition home or self-care (01) ==
LOC: EDUNIT# 12:24 → ER 12:27
DX: J10.1 Influenza due to other identified influenza virus with other respiratory manifestations (principal); I10 Essential (primary) hypertension; G43.909 Migraine, unspecified, not intractable, without status migrainosus; F31.9 Bipolar disorder, unspecified; F60.9 Personality disorder, unspecified; Z82.49 Family history of ischemic heart disease and other diseases of the circulatory system; Z87.891 Personal history of nicotine dependence; Z98.890 Other specified postprocedural states
CPT/HCPCS: 36415; 71045; 80053; 85025; 85610; 85730; 87804

== ENCOUNTER 2018-05-09 12:34 | Observation (INO) | payer OTHER ==
[~2018-05-09] VITALS: Ht 188 cm; Wt 117.4 kg
[2018-05-09] MEDS ORDERED: ACETAMINOPHEN 500 MG TAB (TYLENOL) PO PRN (12:45)
[2018-05-09 13:00] VITALS: BP 125/92
[2018-05-09] MEDS: NS IV 1000 ML 1,000 ML IV SCH ×2 (14:00→21:01)
[2018-05-09 14:01] VITALS: BP 125/92
[2018-05-09] MEDS ORDERED: CATHETER FLUSH 10 ML SYR IV PRN (14:45)
[2018-05-09] MEDS ORDERED: FLU QUADRIvalent (5+ YOA) 2018-2019 (AFLURIA) 0.5 ML IM ONE (14:45)
[2018-05-09 15:27] VITALS: BP 134/84
[2018-05-09] MEDS ORDERED: PROP40TA5 PO (15:32)
[2018-05-09] MEDS ORDERED: SERT100T PO (15:32)
[2018-05-09] MEDS ORDERED: GABA-490 PO (15:32)
--- NOTE | 2018-05-09 15:34 | NUR ---
PATIENT LISTED WHAT MEDICATIONS HE IS TAKING. HE STATES HE GETS THEM FROM [facility] REPOSITORY. I WAS NOT ABLE TO SPEAK WITH A NURSE AT [facility] BUT LEFT A MESSAGE. I HAD A LIST FAXED OVER FROM [facility] AND UPDATED THE MED REC WITH THAT LIST. THE LIST STATES GABAPENTIN TID HOWEVER PATIENT STATES HE ONLY TAKES IT BID. HE STATES HE DOES NOT TAKE ANYTHING OTC. SEE LIST ON CHART FOR MORE DETAILS.
[2018-05-09 15:54] VITALS: BP 134/87
--- NOTE | 2018-05-09 16:42 | Diagnostic Imaging Report ---
INDICATION: Influenza. TIME OF EXAMINATION: 2:31 PM. COMPARISON: 05/01/2018. FINDINGS: There is developing patchy airspace infiltrate in the left lower lobe, consistent with pneumonia. The right lung is clear. No effusion or pneumothorax is seen. IMPRESSION: Development of patchy left lower lobe pneumonia. Dictated by: Dictated on workstation # [id number]
[2018-05-09 17:19] LABS: BASOPHILS % (AUTO) 0 % (0-10); EOSINOPHILS # (AUTO) 0.1 10^3/uL (0.0-0.3); EOSINOPHILS % (AUTO) 1 % (0-10); HEMATOCRIT 38 % (40-54); HEMOGLOBIN 13.1 G/DL (13.3-17.7); LYMPHOCYTES # (AUTO) 2.3 X 10^3 (1.0-4.0); LYMPHOCYTES % (AUTO) 22 % (12-44); MEAN CORPUSCULAR HEMOGLOBIN 31 PG (25-34); MEAN CORPUSCULAR HGB CONC 35 G/DL (32-36); MEAN CORPUSCULAR VOLUME 88 FL (80-99); MEAN PLATELET VOLUME 9.2 FL (7.4-10.4); MONOCYTES # (AUTO) 0.8 X 10^3 (0.0-1.0); MONOCYTES % (AUTO) 7 % (0-12); NEUTROPHILS % (AUTO) 69 % (42-75); PLATELET COUNT 453 10^3/uL (130-400); RED CELL DISTRIBUTION WIDTH 12.3 % (10.0-14.5); WHITE BLOOD COUNT 10.1 10^3/uL (4.3-11.0)
[2018-05-09 17:34] LABS: ALANINE AMINOTRANSFERASE 27 U/L (0-55); ALBUMIN 3.9 GM/DL (3.2-4.5); ALKALINE PHOSPHATASE 116 U/L (40-136); BILIRUBIN,TOTAL 0.7 MG/DL (0.1-1.0); BUN/CREATININE RATIO 10; CALCIUM 9.1 MG/DL (8.5-10.1); CARBON DIOXIDE 21 MMOL/L (21-32); CHLORIDE 106 MMOL/L (98-107); CREATININE SERUM 1.08 MG/DL (0.60-1.30); GFR ESTIMATED > 60; GLUCOSE 113 MG/DL (70-105); MAGNESIUM 2.2 MG/DL (1.8-2.4); POTASSIUM 3.6 MMOL/L (3.6-5.0); SODIUM 141 MMOL/L (135-145); TOTAL PROTEIN 7.5 GM/DL (6.4-8.2)
--- NOTE | 2018-05-09 18:01 | NUR ---
CRITICAL LAB: LACTIC ACID 3.18. DR SINGER NOTIFIED. NEW ORDERS RECEIVED
--- NOTE | 2018-05-09 18:03 | NUR ---
VERIFIED WITH DR SINGER: LEAVE NS RUNNING AT 150 MLS/HR AND RECHECK LACTIC ACID IN 4 HOURS
[2018-05-09] MEDS ORDERED: cefTRIAXone FOR IV USE 1,000 MG in WATER (STERILE) FOR INJECTION 10 ML IV NR (19:15)
[2018-05-09 19:18] VITALS: BP 138/79
[2018-05-09 20:45] LABS: BILIRUBIN,URINE NEGATIVE (NEGATIVE); CLARITY,URINE CLEAR; COLOR,URINE AMBER; GLUCOSE, URINE (UA) NEGATIVE (NEGATIVE); KETONES,URINE NEGATIVE (NEGATIVE); LEUKOCYTE ESTERASE ,URINE NEGATIVE (NEGATIVE); NITRITE,URINE NEGATIVE (NEGATIVE); PH,URINE 6 (5-9); PROTEIN,URINE 1+ (NEGATIVE); UROBILINOGEN,URINE 4 MG/DL (NORMAL)
[2018-05-09] MEDS: ONDANSETRON 4 MG/2 ML (SDV) Z0FRAN IVP PRN (21:01)
[2018-05-09 21:21] LABS: BACTERIA,URINE NEGATIVE /HPF; RBC,URINE RARE /HPF; SQUAMOUS EPITHELIAL CELL,UR 0-2 /HPF; WBC,URINE RARE /HPF
[2018-05-10] VITALS: BP 137/84
--- NOTE | 2018-05-10 00:47 | NUR ---
[address] buckley because this pt is requesting that the Tylenol order be switched to liquid instead of tabs-order received & repeated back dr. buckley agreed.
[2018-05-10] MEDS: APAP 325 MG/10.15 ML LIQ (TYLENOL) UDC PO PRN ×3 (01:27→15:44)
[2018-05-10] MEDS: ONDANSETRON 4 MG/2 ML (SDV) Z0FRAN IVP PRN ×3 (01:31→15:43)
[2018-05-10 03:48] VITALS: BP 138/81
[2018-05-10] MEDS: NS IV 1000 ML 1,000 ML IV SCH ×3 (03:48→20:27)
[2018-05-10 08:00] VITALS: BP 131/81
[2018-05-10] MEDS: AZITHROMYCIN 250 MG TAB (ZITHROMAX) PO SCH ×2 (08:44→08:54)
--- NOTE | 2018-05-10 09:34 | History & Physicial (CHS) ---
HPI History of Present Illness: 42 yo M that was seen at [facility] by Dr Morrison and was a direct admission. Patient came in due to post tussive emesis and coughing that he states he can not control. States that his side is hurting because he has been coughing so much. Patient was also + for Influenza A but has had symptoms for 2 weeks so was not given anti viral medication. Denies any fevers but has had some chills the last few days. He has not been able to eat due to coughing and has not been able to take his medications because of coughing. Source: patient, family (GF) Exam Limitations: no limitations Date seen by provider: May 10, 2018 Time Seen by Provider: 08:00 Attending Physician Hailey Cuellar MD PCP Aurora Morrison MD Consult Date of Admission May 09, 2018 at 13:05 Home Medications Home Medications Reviewed patient Home Medication Reconciliation performed by pharmacy medication reconciliations aviation technician and/or nursing. Patients Allergies have been reviewed. Allergies Uncoded Allergies: strawberries (Adverse Reaction, Intermediate, ANAPHYLAXIS, 05/09/18) LWO-Yeriqc-Peqzjw Hx Patient Social History Alcohol Use: Denies Use Recreational Drug Use: No Type Used: Cigarettes 2nd Hand Smoke Exposure: No Recent Foreign Travel: No Contact w/other who traveled: No Recent Hopitalizations: No Recent Infectious Disease Expo: No Physical Abuse Screen: No Sexual Abuse: No Immunizations Up To Date Tetanus Booster (TDap): Unknown Past Medical History Seizures? per GF Family Medical History Significant Family History: Heart Disease, Diabetes, Hypertension Family History: Arthritis 19 MOTHER, Onset:Unknown Asthma G8 SISTER, Onset:Childhood Diabetes mellitus 19 FATHER, Onset:Unknown Headache disorder Hypertension 19 FATHER, Onset:Unknown Neoplasm 19 MOTHER, Onset:Unknown (cancer of the back) Review of Systems ([facility]) Constitutional: chills; No fever; malaise, weakness EENTM: hoarseness, nose congestion, nose pain Respiratory: cough, dyspnea on exertion; No orthopnea, No short of breath Cardiovascular: no symptoms reported; No chest pain, No edema, No palpitations Gastrointestinal: no symptoms reported; No abdominal pain, No constipation, No diarrhea, No nausea, No vomiting Genitourinary: no symptoms reported; No dysuria, No frequency, No hematuria Musculoskeletal: muscle pain Skin: no symptoms reported Psychiatric/Neurological: No Symptoms Reported Reviewed Test Results Reviewed Test Results Lab Laboratory Tests Test 05/09/18 22:12 05/10/18 02:00 Range/Units Lactic Acid Level 2.18 *H 0.70 0.50-2.00 MMOL/L Physical Exam-(CHC) Physical Exam Vital Signs VS - Last 72 Hours, by Label 05/09/18 05/09/18 05/09/18 05/09/18 13:00 14:01 15:27 15:30 Temp 97.3 97.3 97.0 Pulse 86 86 66 Resp 19 B/P (MAP) 125/92 125/92 134/84 (101) Pulse Ox 100 100 99 O2 Delivery Room Air Room Air Room Air Room Air 05/09/18 05/09/18 05/09/18 05/09/18 15:54 19:18 20:00 20:43 Temp 97.2 Pulse 66 81 Resp B/P (MAP) 138/79 (98) Pulse Ox 99 98 O2 Delivery Room Air Room Air Room Air FiO2 21 05/10/18 05/10/18 05/10/18 05/10/18 00:00 03:48 08:00 08:50 Temp 97.1 96.9 96.7 Pulse 68 58 61 Resp B/P (MAP) 137/84 (101) 138/81 (100) 131/81 (98) Pulse Ox 98 97 98 98 O2 Delivery Room Air Room Air Room Air Room Air 05/10/18 05/10/18 05/10/18 05/10/18 12:00 15:09 16:55 19:51 Temp 96.8 98.0 Pulse 67 81 Resp B/P (MAP) 132/81 (98) 146/88 (107) Pulse Ox 98 98 99 99 O2 Delivery Room Air Room Air Room Air Room Air Capillary Refill : General Appearance: mild distress (with coughing ) Neck: non-tender, full range of motion, supple Respiratory: chest non-tender, lungs clear, normal breath sounds, no respiratory distress; No crackles, No wheezing Cardiovascular: normal peripheral pulses, regular rate, rhythm, no murmur Gastrointestinal: normal bowel sounds, non tender, soft, no organomegaly Back: no CVA tenderness, no vertebral tenderness Extremities: normal range of motion, no pedal edema, no calf tenderness, normal capillary refill 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, no motor/sensory deficits, alert, normal mood/affect, oriented x 3 Skin: normal color, warm/dry Lymphatic: no adenopathy Assessment/Plan Assessment/Plan Admission Status: Observation (1) Lactic acidosis Status: Acute Assessment & Plan: 05/10: Resolved with aggressive IV fluids (2) Hemoptysis Status: Acute Assessment & Plan: 05/10: likely 2/2 PNA, Will continue to monitor (3) Vomiting Status: Acute Assessment & Plan: - Improved with IVFs, was able to tolerate some food for the first time last night Qualifiers: Qualified Codes: R11.2 - Nausea with vomiting, unspecified (4) Hypertension Status: Chronic Assessment & Plan: - Restart home meds Qualifiers: Qualified Codes: I10 - Essential (primary) hypertension (5) Influenza A Status: Acute Clinical Quality Measures DVT/VTE Risk/Contraindication: Risk Factor Score Per Nursin RFS Level Per Nursing on Admit: 4+=Very High HAILEY CEULLAR MD May 10, 2018 09:34
[2018-05-10] MEDS: BENZONATATE 100 MG (TESSALON) CAPSULE PO SCH ×3 (09:45→20:27)
[2018-05-10] MEDS: cefTRIAXone FOR IV USE 1,000 MG in WATER (STERILE) FOR INJECTION 10 ML IV SCH (11:40)
[2018-05-10 12:00] VITALS: BP 132/81
[2018-05-10] MEDS: RT-ALBUTEROL SULF 2.5 MG/3 ML PRE-MIX VIAL INH PRN ×2 (15:09→19:51)
[2018-05-10 16:55] VITALS: BP 146/88
[2018-05-10] MEDS: GABAPENTIN 400 MG (NEURONTIN) CAP PO SCH (20:27)
[2018-05-11] VITALS: BP 146/92
[2018-05-11] MEDS: NS IV 1000 ML 1,000 ML IV SCH (04:38)
[2018-05-11 04:47] LABS: BASOPHILS % (AUTO) 0 % (0-10); EOSINOPHILS # (AUTO) 0.2 10^3/uL (0.0-0.3); EOSINOPHILS % (AUTO) 3 % (0-10); HEMATOCRIT 33 % (40-54); HEMOGLOBIN 11.2 G/DL (13.3-17.7); LYMPHOCYTES # (AUTO) 2.5 X 10^3 (1.0-4.0); LYMPHOCYTES % (AUTO) 36 % (12-44); MEAN CORPUSCULAR HEMOGLOBIN 30 PG (25-34); MEAN CORPUSCULAR HGB CONC 34 G/DL (32-36); MEAN CORPUSCULAR VOLUME 90 FL (80-99); MONOCYTES # (AUTO) 0.7 X 10^3 (0.0-1.0); MONOCYTES % (AUTO) 10 % (0-12); NEUTROPHILS # (AUTO) 3.5 X 10^3 (1.8-7.8); NEUTROPHILS % (AUTO) 51 % (42-75); PLATELET COUNT 412 10^3/uL (130-400); RED CELL DISTRIBUTION WIDTH 12.6 % (10.0-14.5); WHITE BLOOD COUNT 6.8 10^3/uL (4.3-11.0)
[2018-05-11] MEDS: RT-ALBUTEROL SULF 2.5 MG/3 ML PRE-MIX VIAL INH PRN (04:47)
[2018-05-11 05:07] LABS: ALANINE AMINOTRANSFERASE 22 U/L (0-55); ALBUMIN 3.4 GM/DL (3.2-4.5); ALKALINE PHOSPHATASE 95 U/L (40-136); BILIRUBIN,TOTAL 0.3 MG/DL (0.1-1.0); BUN/CREATININE RATIO 8; CALCIUM 8.6 MG/DL (8.5-10.1); CARBON DIOXIDE 19 MMOL/L (21-32); CHLORIDE 111 MMOL/L (98-107); CREATININE SERUM 0.96 MG/DL (0.60-1.30); GFR ESTIMATED > 60; GLUCOSE 110 MG/DL (70-105); POTASSIUM 3.9 MMOL/L (3.6-5.0); SODIUM 141 MMOL/L (135-145); TOTAL PROTEIN 6.2 GM/DL (6.4-8.2)
[2018-05-11 08:00] VITALS: BP 152/83
[2018-05-11] MEDS: BENZONATATE 100 MG (TESSALON) CAPSULE PO SCH ×2 (09:05→13:01)
[2018-05-11] MEDS: AZITHROMYCIN 250 MG TAB (ZITHROMAX) PO SCH (09:05)
[2018-05-11] MEDS: GABAPENTIN 400 MG (NEURONTIN) CAP PO SCH (09:05)
[2018-05-11] MEDS ORDERED: methylPREDNISolone 125 MG (Solu-MEDROL) VIAL IVP NR (09:15)
[2018-05-11] MEDS: RT-ALBUTEROL SULF 2.5 MG/3 ML PRE-MIX VIAL INH SCH ×2 (10:22→13:43)
[2018-05-11] MEDS: cefTRIAXone FOR IV USE 1,000 MG in WATER (STERILE) FOR INJECTION 10 ML IV SCH (11:45)
--- NOTE | 2018-05-11 13:01 | Discharge Summary ---
Diagnosis/Chief Complaint Date of Admission May 09, 2018 at 13:05 Date of Discharge Discharge Diagnosis Problems/Diagnosis: (1) Lactic acidosis Assessment & Plan: 05/10: Resolved with aggressive IV fluids Status: Acute (2) Hemoptysis Assessment & Plan: 05/10: likely 2/2 PNA, Will continue to monitor Status: Acute (3) Vomiting Assessment & Plan: - Improved with IVFs, was able to tolerate some food for the first time last night Qualifiers: Qualified Codes: R11.2 - Nausea with vomiting, unspecified Status: Acute (4) Hypertension Assessment & Plan: - Restart home meds Qualifiers: Qualified Codes: I10 - Essential (primary) hypertension Status: Chronic (5) Influenza A Status: Acute Chief Complaint/HPI Chief Complaint/HPI 42 yo M that was seen at [facility] by Dr Morrison and was a direct admission. Patient came in due to post tussive emesis and coughing that he states he can not control. States that his side is hurting because he has been coughing so much. Patient was also + for Influenza A but has had symptoms for 2 weeks so was not given anti viral medication. Denies any fevers but has had some chills the last few days. He has not been able to eat due to coughing and has not been able to take his medications because of coughing. Discharge Summary-Simple/Stand Consultations Discharge Physical Examination Allergies: Coded Allergies: strawberry (Unverified Allergy, Intermediate, ANAPHYLAXIS, 05/11/18) FROM UNCODED ALLERGIES Vitals & I&Os Vital Sign - Last 12Hours Date Time Temp Pulse Resp B/P (MAP) Pulse Ox O2 Delivery O2 Flow Rate FiO2 05/11/18 10:23 94 Room Air 05/11/18 08:00 98.2 77 20 152/83 (106) 05/09/18 15:54 21 Intake and Output 05/11/18 00:00 Intake Total 1530 ml Output Total 200 ml Balance 1330 ml Hospital Course See final discharge diagnosis. Discharge Instructions to patient/family Please see electronic discharge instructions given to patient. Discharge Medications Reviewed and agree with Discharge Medication list on patient's Discharge Instruction sheet Clinical Quality Measures DVT/VTE Risk/Contraindication: Risk Factor Score Per Nursin RFS Level Per Nursing on Admit: 4+=Very High HAILEY SINGER MD May 11, 2018 13:00
[2018-05-11] MEDS ORDERED: CEFD300C3 PO (13:08)
[2018-05-11] MEDS ORDERED: AZIT250T12 PO (13:08)
[2018-05-11] MEDS ORDERED: BENZ100C18 PO (13:08)
[2018-05-11] MEDS ORDERED: RT-ALBUINH IH (13:08)
--- NOTE | 2018-05-11 13:10 | Discharge Instructions ---
Discharge [facility] Discharge Medications New, Converted or Re-Newed RX: Transmitted to Pharmacy New Medications: Albuterol Sulfate (Proair Hfa) 1 Puff Puff 2 PUFF IH Q4H, #1 INHALER 1 PUFF = 90 MCG Cefdinir (Cefdinir) 300 Mg Capsule 300 MG PO BID, #8 CAP Azithromycin (Azithromycin) 250 Mg Tablet 250 MG PO DAILY, #4 TAB Benzonatate (Tessalon Perles) 100 Mg Capsule 100 MG PO TID for 10 Days, #30 CAP Continued Medications: Gabapentin (Gabapentin) 400 Mg Capsule 800 MG PO BID, CAP TAKES 2 (400MG) CAPSULES Lisinopril (Prinivil) 20 Mg Tablet 20 MG PO DAILY, TAB Ondansetron (Ondansetron Odt) 4 Mg Tab.rapdis 4 MG PO Q6H PRN for NAUSEA/VOMITING, #12 TAB 0 Refills Propranolol HCl (Propranolol HCl) 40 Mg Tablet 40 MG PO BID, TAB Discontinued Medications: Sertraline HCl (Zoloft) 100 Mg Tablet 150 MG PO DAILY, TAB TAKES 1 & 1/2 (100MG) TABLET Activity & Diet Discharge Diet: ADA Diet Activity as Tolerated: Yes HAILEY SINGER MD May 11, 2018 13:10
== END 2018-05-11 13:50 | disposition home or self-care (01) ==
LOC: 4TH 13:05
PROVIDERS: ADMIT Family Medicine; ATTEND Family Medicine
DX: J10.1 Influenza due to other identified influenza virus with other respiratory manifestations (principal); R04.2 Hemoptysis; R11.2 Nausea with vomiting, unspecified; I10 Essential (primary) hypertension; E87.2 Acidosis
CPT/HCPCS: 36415; 71046; 80053; 81000; 83605; 83735; 85025; 87040; 94640

== ENCOUNTER 2018-09-03 14:03 | Emergency (ER) | payer SELFPAY ==
[~2018-09-03] VITALS: Ht 188 cm; Wt 121.6 kg
[~2018-09-03 14:03] MED LIST changes: +AZIT250T12 PO; +BENZ100C18 PO; +CEFD300C3 PO; +GABA-490 PO; +PROP40TA5 PO; +RT-ALBUINH IH; +SERT100T PO
[2018-09-03] MEDS ORDERED: SULF1TAB35 PO (14:15)
[2018-09-03] MEDS ORDERED: PRD20T PO (14:15)
--- NOTE | 2018-09-03 14:16 | ED Integumentary General ---
General Stated Complaint: L ARM BUG BITES Source: patient Exam Limitations: no limitations History of Present Illness Date Seen by Provider: Sep 03, 2018 Time Seen by Provider: 14:12 Initial Comments To ER with reports of "bug bites" on his left arm and one on his right clavicle region. States that he went swimming and then slept under a shade tree a few d ays ago, upon awakening he had some red spots which were very itchy. Timing/Duration: constant Severity: moderate Location: extremities Possible Cause: insect bite Associated Symptoms: denies symptoms Allergies and Home Medications Allergies Coded Allergies: strawberry (Unverified Allergy, Intermediate, ANAPHYLAXIS, 05/11/18) FROM UNCODED ALLERGIES Home Medications Albuterol Sulfate 1 Puff Puff, 2 PUFF IH Q4H 1 PUFF = 90 MCG Prescribed by: HAILEY SINGER on 05/11/18 1308 Azithromycin 250 Mg Tablet, 250 MG PO DAILY Prescribed by: HAILEY SINGER on 05/11/18 1308 Benzonatate 100 Mg Capsule, 100 MG PO TID Prescribed by: HAILEY SINGER on 05/11/18 1308 Cefdinir 300 Mg Capsule, 300 MG PO BID Prescribed by: HAILEY SINGER on 05/11/18 1308 Gabapentin 400 Mg Capsule, 800 MG PO BID, (Reported) TAKES 2 (400MG) CAPSULES Lisinopril 20 Mg Tablet, 20 MG PO DAILY, (Reported) Ondansetron 4 Mg Tab.rapdis, 4 MG PO Q6H PRN for NAUSEA/VOMITING Prescribed by: HENRY MILLER on 05/01/18 1407 Propranolol HCl 40 Mg Tablet, 40 MG PO BID, (Reported) Patient Home Medication List Home Medication List Reviewed: Yes Review of Systems Review of Systems Constitutional: see HPI EENTM: see HPI Respiratory: no symptoms reported Cardiovascular: no symptoms reported Genitourinary: no symptoms reported Musculoskeletal: no symptoms reported Skin: see HPI Psychiatric/Neurological: No Symptoms Reported Endocrine: No Symptoms Reported Past Ualutqv-Ixtpcw-Nobral Hx Patient Social History Type Used: Cigarettes Former Smoker, Quit: June 21, 2006 2nd Hand Smoke Exposure: No Recent Foreign Travel: No Contact w/Someone Who Travel: No Recent Hopitalizations: No Immunizations Up To Date Tetanus Booster (TDap): Unknown PED Vaccines UTD: Yes Seasonal Allergies Seasonal Allergies: No Past Medical History Surgeries: Yes (R EYE, surgery for facial trauma, BACK) Respiratory: No Currently Using CPAP: No Currently Using BIPAP: No Cardiac: Yes Hypertension Neurological: Yes Headaches /Migraines Sexually Transmitted Disease: No HIV/AIDS: No Genitourinary: No Gastrointestinal: No Musculoskeletal: Yes Chronic Back Pain Endocrine: No HEENT: Yes (RIGHT EYE) Eye Injury Cancer: No Psychosocial: Yes Bipolar, Personality Disorder Integumentary: No Blood Disorders: No Adverse Reaction/Blood Tranf: No Family Medical History Arthritis 19 MOTHER, Onset:Unknown Asthma G8 SISTER, Onset:Childhood Diabetes mellitus 19 FATHER, Onset:Unknown Headache disorder Hypertension 19 FATHER, Onset:Unknown Neoplasm 19 MOTHER, Onset:Unknown (cancer of the back) Heart Disease, Diabetes, Hypertension Physical Exam Vital Signs Capillary Refill : General Appearance: WD/WN, no apparent distress Neck: non-tender, full range of motion Respiratory: no respiratory distress, no accessory muscle use Neurologic/Psychiatric: alert, normal mood/affect, oriented x 3 Skin: normal color, warm/dry, other (there is a an approximately 2-3 cm area of erythema without fluctuance or vesicles or pustules to the right clavicular region. Some more appearing lesions to the left forearm 2, left upper arm 1. Multitude of old sores to both arms and legs.) Departure Impression Primary Impression: Infected wound Disposition: 01 HOME, SELF-CARE Condition: Stable Departure-Patient Inst. Decision time for Depature: 14:14 Referrals: ERIKA ANDREWS MD (PCP/Family) Primary Care Physician Patient Instructions: Wound Infection Scripts Prednisone (Prednisone) 20 Mg Tab 40 MG PO DAILY, #6 TAB 0 Refills Prov: RUSH HA APRN 09/03/18 Sulfamethoxazole/Trimethoprim (Bactrim Ds Tablet) 1 Each Tablet 1 EACH PO BID, #14 TAB Prov: RUSH HA APRN 09/03/18 RUSH HA APRN Sep 03, 2018 14:16
[2018-09-03 14:20] VITALS: BP 173/103
== END 2018-09-03 14:20 | disposition home or self-care (01) ==
LOC: EDUNIT# 14:03 → ER 14:04
DX: S40.862A Insect bite (nonvenomous) of left upper arm, initial encounter (principal); L08.89 Other specified local infections of the skin and subcutaneous tissue; I10 Essential (primary) hypertension; G43.909 Migraine, unspecified, not intractable, without status migrainosus; F31.9 Bipolar disorder, unspecified; F60.9 Personality disorder, unspecified; Z80.8 Family history of malignant neoplasm of other organs or systems; Z82.49 Family history of ischemic heart disease and other diseases of the circulatory system; Z87.891 Personal history of nicotine dependence; W57.XXXA Bitten or stung by nonvenomous insect and other nonvenomous arthropods, initial encounter; Y93.11 Activity, swimming
CPT/HCPCS: 99282

== ENCOUNTER → 2018-10-25 | Outpatient (CLI) | payer OTHER ==
[~2018-10-25] MED LIST changes: +PRD20T PO; +SULF1TAB35 PO
--- NOTE | 2018-10-25 14:57 | Diagnostic Imaging Report ---
Clinical indication: Patient chronic low back problems and pain. Patient's history previous low back surgery in 2015 increasing pain recently. Exam: MRI of the lumbar spine performed without IV contrast. Sagittal T2, sagittal T1, sagittal T2 fat-sat, and axial T2. Comparison: MRI of the lumbar spine without contrast dated 10/09/2014. Findings: There is no interval lumbar spine fracture. There is progression of Modic type I degenerative signal changes involving L5-S1 endplates. Is otherwise no other significant lumbar spine signal. There is interval postop changes to the lower lumbar spine with laminotomy in the right L5-S1 regions and suspected discectomy changes. Is no significant paraspinal fluid collection. Besides postop changes, there is no significant paraspinal soft tissue abnormality. The visualized portions of the distal thoracic spinal cord, conus medullaris, and cauda equina nerve roots are unremarkable. The conus medullaris tip is seen at the L1-L2 intervertebral level. T12-L1: Stable small right paracentral disc protrusion/herniation and mild bilateral facet arthropathy. There is stable mild central canal narrowing. L1-L2: Stable mild bilateral facet arthropathy. Stable chronic Schmorl's nodes. There is no significant central spinal canal or neural foramen narrowing. L2-L3: Stable mild bilateral facet arthropathy. There is no significant central spinal canal or neural foramen narrowing. Chronic Schmorl's nodes are again seen. L3-L4: There is progression of diffuse disc bulge with now moderate loss of vertebral disc height. Stable chronic Schmorl's nodes. There is development of a moderate size anterior disc extrusion/herniation which demonstrates both 9 mm of caudal disc migration and 15 mm of cephalad disc migration. There is no significant posterior disc bulge component. There is mild to moderate bilateral facet arthropathy. There is no significant central spinal canal or neural foramen narrowing. L4-L5: Is no significant change to the diffuse disc bulge with small disc extrusion/herniation in the right foraminal region. There are stable moderate to severe right neural foramen narrowing and no significant left neural foramen narrowing. There is stable mild central canal narrowing. L5-S1: Stable grade 1 retrolisthesis of L5 on S1. There is diffuse disc bulge with severe loss of vertebral disc height and disc spurs extending into the foraminal regions bilaterally. There is interval decreased size of the right subarticular and posterior disc herniation component with small amount remaining. There is stable moderate to severe right neural foramen narrowing is mild to moderate left neural foramen narrowing. There is severe central canal narrowing which has slightly improved. Impression: 1: Interval postop changes with suspected right L5-S1 laminectomy and discectomy changes. There is decreased size of the right posterior right subarticular L5-S1 disc herniation with small amount remaining. 2: There is interval progression of L3-L4 diffuse disc bulge with moderate anterior disc extrusion/herniation. 3: The remainder lumbar spine degenerative disease changes are described above and have not significantly changed in the interim. 4: Stable grade 1 retrolisthesis of L5 on S1. Dictated by: Dictated on workstation # [id number]
== END ==
LOC: RAD 13:05
PROVIDERS: ATTEND Nurse Practitioner Family
DX: M51.17 Intervertebral disc disorders with radiculopathy, lumbosacral region (principal); M47.26 Other spondylosis with radiculopathy, lumbar region; M48.07 Spinal stenosis, lumbosacral region; M43.17 Spondylolisthesis, lumbosacral region; Z98.890 Other specified postprocedural states
CPT/HCPCS: 72148

== ENCOUNTER 2018-10-30 14:32 | Emergency (ER) | payer SELFPAY ==
[~2018-10-30] VITALS: Ht 187 cm; Wt 123.0 kg
[2018-10-30] MEDS ORDERED: BACI3.5O5 OP (15:04)
--- NOTE | 2018-10-30 15:04 | ED EENT ---
History of Present Illness General Chief Complaint: Eye Problems Stated Complaint: EYE PAIN Nursing Triage Note: states he woke up tuesday with pain in R eye with drainage, has not gotten better since Source: patient Exam Limitations: no limitations History of Present Illness Date Seen by Provider: Oct 30, 2018 Time Seen by Provider: 15:00 Initial Comments 43-year-old male who presents to the emergency room with complaints of right eye lower lid swelling and a pimple-appearing bump To the eyelid. He reports that has been draining out of the right eyelid. Mild erythema to surrounding tissue. Location: eye (R) Prearrival Treatment: no prearrival treatment Associated Symptoms: denies symptoms Allergies and Home Medications Allergies Coded Allergies: strawberry (Unverified Allergy, Intermediate, ANAPHYLAXIS, 05/11/18) FROM UNCODED ALLERGIES Home Medications Albuterol Sulfate 1 Puff Puff, 2 PUFF IH Q4H 1 PUFF = 90 MCG Prescribed by: HAILEY SINGER on 05/11/18 1308 Azithromycin 250 Mg Tablet, 250 MG PO DAILY Prescribed by: HAILEY SINGER on 05/11/18 1308 Bacitracin/Polymyxin B Sulfate 3.5 Gm Oint...g., 3.5 GM OP Q4H Prescribed by: FILOMENA YU on 10/30/18 1504 Benzonatate 100 Mg Capsule, 100 MG PO TID Prescribed by: HAILEY SINGER on 05/11/18 1308 Cefdinir 300 Mg Capsule, 300 MG PO BID Prescribed by: HAILEY SINGER on 05/11/18 1308 Gabapentin 400 Mg Capsule, 800 MG PO BID, (Reported) TAKES 2 (400MG) CAPSULES Lisinopril 20 Mg Tablet, 20 MG PO DAILY, (Reported) Ondansetron 4 Mg Tab.rapdis, 4 MG PO Q6H PRN for NAUSEA/VOMITING Prescribed by: HENRY MILLER on 05/01/18 1407 Prednisone 20 Mg Tab, 40 MG PO DAILY Prescribed by: RUSH HA on 09/03/18 1415 Propranolol HCl 40 Mg Tablet, 40 MG PO BID, (Reported) Sulfamethoxazole/Trimethoprim 1 Each Tablet, 1 EACH PO BID Prescribed by: RUSH HA on 09/03/18 1415 Patient Home Medication List Home Medication List Reviewed: Yes Review of Systems Review of Systems Constitutional: see HPI; No chills, No fever Eyes: See HPI, Pain (red bump on right lower eyelid) Ears: See HPI All Other Systems Reviewed Negative Unless Noted: Yes Past Coxluvz-Mxumdv-Slyxhj Hx Past Med/Social Hx: Reviewed Nursing Past Med/Soc Hx Patient Social History Alcohol Use: Denies Use Recreational Drug Use: No Type Used: Cigarettes Former Smoker, Quit: June 21, 2006 2nd Hand Smoke Exposure: No Recent Foreign Travel: No Contact w/Someone Who Travel: No Recent Infectious Disease Expo: No Recent Hopitalizations: No Immunizations Up To Date Tetanus Booster (TDap): Unknown PED Vaccines UTD: Yes Seasonal Allergies Seasonal Allergies: No Past Medical History Surgeries: Yes (R EYE, surgery for facial trauma, BACK) Respiratory: No Currently Using CPAP: No Currently Using BIPAP: No Cardiac: Yes Hypertension Neurological: Yes Headaches /Migraines Sexually Transmitted Disease: No HIV/AIDS: No Genitourinary: No Gastrointestinal: No Musculoskeletal: Yes Chronic Back Pain Endocrine: No HEENT: Yes (RIGHT EYE) Eye Injury Cancer: No Psychosocial: Yes Bipolar, Personality Disorder Integumentary: No Blood Disorders: No Adverse Reaction/Blood Tranf: No Family Medical History Reviewed Nursing Family Hx Arthritis 19 MOTHER, Onset:Unknown Asthma G8 SISTER, Onset:Childhood Diabetes mellitus 19 FATHER, Onset:Unknown Headache disorder Hypertension 19 FATHER, Onset:Unknown Neoplasm 19 MOTHER, Onset:Unknown (cancer of the back) Heart Disease, Diabetes, Hypertension Physical Exam Vital Signs Vital Signs - First Documented 10/30/18 10/30/18 14:53 15:07 Temp 37.0 Pulse 80 Resp 18 B/P (MAP) 156/102 Pulse Ox 99 O2 Delivery Room Air Height, Weight, BMI Height: 6'2.00" Weight: 268lbs. 12.8oz. 121.823103mb; 35.00 BMI Method:Stated General Appearance: WD/WN, no apparent distress Eyes: right eye stye (mild surrounding erythema to the right lower lid) Cardiovascular: normal peripheral pulses, regular rate, rhythm, no edema, no gallop, no JVD, no murmur Respiratory: chest non-tender, lungs clear, normal breath sounds, no respiratory distress, no accessory muscle use Neurologic/Psychiatric: alert, normal mood/affect, oriented x 3 Progress/Results/Core Measures Results/Orders Vital Signs/I&O 10/30/18 10/30/18 14:53 15:07 Temp 37.0 37.0 Pulse 80 80 Resp 18 18 B/P (MAP) 156/102 156/102 (120) Pulse Ox 99 O2 Delivery Room Air Blood Pressure Mean: 120 Departure Impression Primary Impression: Hordeolum externum (stye) Disposition: 01 HOME, SELF-CARE Condition: Stable/Unchanged Departure-Patient Inst. Decision time for Depature: 15:03 Referrals: ERIKA ANDREWS MD (PCP/Family) Primary Care Physician Patient Instructions: Stye (Hordeolum) Add. Discharge Instructions: Antibiotic ointment as directed. Follow-up with primary care within 1 week if no improvement. Return back to the emergency room for worsening symptoms or concerns as needed. All discharge instructions reviewed with patient and/or family. Voiced understanding. Scripts Bacitracin/Polymyxin B Sulfate (Bacitracin-Polymyxin Eye Oint) 3.5 Gm Oint...g. 3.5 GM OP Q4H for 1 Day, #1 TUBE Prov: FILOMENA YU 10/30/18 FILOMENA YU Oct 30, 2018 15:04
[2018-10-30 15:07] VITALS: BP 156/102
== END 2018-10-30 15:07 | disposition home or self-care (01) ==
LOC: EDUNIT# 14:32 → ER 14:33
DX: H00.012 Hordeolum externum right lower eyelid (principal); G43.909 Migraine, unspecified, not intractable, without status migrainosus; I10 Essential (primary) hypertension; F31.9 Bipolar disorder, unspecified; F60.9 Personality disorder, unspecified; Z91.018 Allergy to other foods; Z79.52 Long term (current) use of systemic steroids; Z87.891 Personal history of nicotine dependence; Z82.49 Family history of ischemic heart disease and other diseases of the circulatory system; Z80.8 Family history of malignant neoplasm of other organs or systems
CPT/HCPCS: 99282

== ENCOUNTER → 2018-12-04 | Outpatient (CLI) | payer OTHER ==
[~2018-12-04] MED LIST changes: +BACI3.5O5 OP
--- NOTE | 2018-12-04 16:51 | Diagnostic Imaging Report ---
PROCEDURE: MR imaging cervical spine without contrast. TECHNIQUE: Multiplanar, multisequence MR imaging of the cervical spine was performed without contrast. INDICATION: Neck pain and shoulder pain. FINDINGS: The examination is compromised due to motion on essentially every acquisition. Alignment of the cervical spine is normal. The vertebral body heights are well maintained. Prevertebral soft tissues are within normal limits. Posterior fossa is unremarkable. Visualized portions of the spinal canal are grossly normal in signal intensity and morphology. At C2-C3, there is no significant spinal or neuroforaminal encroachment. At C3-C4, there is no significant spinal or neuroforaminal encroachment. At C4-C5, there is some annular bulging resulting in [id number]-td-oaxytwck central spinal stenosis. At C5-C6, there is annular bulging and some left uncovertebral joint hypertrophy. There is ttpj-hl-reegjywd spinal stenosis and mild bilateral neuroforaminal encroachment. At C6-C7, there is minimal annular bulging with slight effacement of the ventral thecal sac. At C7-T1, there is no significant spinal or neuroforaminal encroachment. IMPRESSION: Technically limited exam due to motion. Diffuse cervical spondylosis and some mild multilevel degenerative disc disease as detailed above. Dictated by: Dictated on workstation # [id number]
== END ==
LOC: RAD 14:28
PROVIDERS: ATTEND Neurological Surgery
DX: M50.13 Cervical disc disorder with radiculopathy, cervicothoracic region (principal); M50.122 Cervical disc disorder at C5-C6 level with radiculopathy; M50.10 Cervical disc disorder with radiculopathy, unspecified cervical region; M47.22 Other spondylosis with radiculopathy, cervical region; M48.02 Spinal stenosis, cervical region
CPT/HCPCS: 72141

== ENCOUNTER 2019-02-10 13:02 | Emergency (ER) | payer MEDICAID ==
[~2019-02-10] VITALS: Ht 187.9 cm; Wt 126.0 kg
[2019-02-10] MEDS ORDERED: ONDANSETRON 4 MG/2 ML (SDV) Z0FRAN IVP ONE (13:15)
[2019-02-10] MEDS ORDERED: LACTATED RINGERS 1,000 ML IV SCH ×2 (13:15→14:00)
--- NOTE | 2019-02-10 13:19 | ED General ---
General Stated Complaint: VOMITING / DIARRHEA Source of Information: Patient Exam Limitations: No Limitations History of Present Illness Date Seen by Provider: Feb 10, 2019 Time Seen by Provider: 13:18 Initial Comments To ER per private vehicle with reports of nausea vomiting diarrhea. He developed some nausea and vomiting one week ago today, was seen by Ignacio at [facility] given a shot of medication into his hip and states he was told if he didn't get better to come to the emergency room. He has since developed diarrhea. Denies abdominal pain, only intermittent diffuse abdominal cramping before an episode of diarrhea. No fever no chills. Timing/Duration: 1 Week Severity: Moderate Associated Systoms: Nausea/Vomiting Allergies and Home Medications Allergies Coded Allergies: strawberry (Unverified Allergy, Intermediate, ANAPHYLAXIS, 05/11/18) FROM UNCODED ALLERGIES levetiracetam (Verified Allergy, Unknown, Rash, 02/10/19) Home Medications Albuterol Sulfate 1 Puff Puff, 2 PUFF IH Q4H 1 PUFF = 90 MCG Prescribed by: HAILEY SINGER on 05/11/18 1308 Azithromycin 250 Mg Tablet, 250 MG PO DAILY Prescribed by: HAILEY SINGER on 05/11/18 1308 Bacitracin/Polymyxin B Sulfate 3.5 Gm Oint...g., 3.5 GM OP Q4H Prescribed by: FILOMENA YU on 10/30/18 1504 Benzonatate 100 Mg Capsule, 100 MG PO TID Prescribed by: HAILEY SINGER on 05/11/18 1308 Cefdinir 300 Mg Capsule, 300 MG PO BID Prescribed by: HAILEY SINGER on 05/11/18 1308 Gabapentin 400 Mg Capsule, 800 MG PO BID, (Reported) TAKES 2 (400MG) CAPSULES Lisinopril 20 Mg Tablet, 20 MG PO DAILY, (Reported) Ondansetron 4 Mg Tab.rapdis, 4 MG PO Q6H PRN for NAUSEA/VOMITING Prescribed by: HENRY MILLER on 05/01/18 1407 Ondansetron 8 Mg Tab.rapdis, 8 MG PO Q6H PRN for NAUSEA/VOMITING Prescribed by: RUSH HA on 02/10/19 1356 Prednisone 20 Mg Tab, 40 MG PO DAILY Prescribed by: RUSH HA on 09/03/18 1415 Propranolol HCl 40 Mg Tablet, 40 MG PO BID, (Reported) Sulfamethoxazole/Trimethoprim 1 Each Tablet, 1 EACH PO BID Prescribed by: RUSH HA on 09/03/18 8979 Patient Home Medication List Home Medication List Reviewed: Yes Review of Systems Review of Systems Constitutional: see HPI EENTM: see HPI Respiratory: no symptoms reported Cardiovascular: no symptoms reported Gastrointestinal: No abdominal pain; diarrhea, nausea, vomiting Genitourinary: no symptoms reported Musculoskeletal: no symptoms reported Skin: no symptoms reported Psychiatric/Neurological: No Symptoms Reported Hematologic/Lymphatic: No Symptoms Reported Immunological/Allergic: no symptoms reported Past Aedvekq-Ymaqrz-Yltgrz Hx Patient Social History Type Used: Cigarettes Former Smoker, Quit: June 21, 2006 2nd Hand Smoke Exposure: No Recent Foreign Travel: No Contact w/Someone Who Travel: No Recent Hopitalizations: No Immunizations Up To Date Tetanus Booster (TDap): Unknown PED Vaccines UTD: Yes Seasonal Allergies Seasonal Allergies: No Past Medical History Surgeries: Yes (R EYE, surgery for facial trauma, BACK) Respiratory: No Currently Using CPAP: No Currently Using BIPAP: No Cardiac: Yes Hypertension Neurological: Yes Headaches /Migraines Sexually Transmitted Disease: No HIV/AIDS: No Genitourinary: No Gastrointestinal: No Musculoskeletal: Yes Chronic Back Pain Endocrine: No HEENT: Yes (RIGHT EYE) Eye Injury Cancer: No Psychosocial: Yes Bipolar, Personality Disorder Integumentary: No Blood Disorders: No Adverse Reaction/Blood Tranf: No Family Medical History Arthritis 19 MOTHER, Onset:Unknown Asthma G8 SISTER, Onset:Childhood Diabetes mellitus 19 FATHER, Onset:Unknown Headache disorder Hypertension 19 FATHER, Onset:Unknown Neoplasm 19 MOTHER, Onset:Unknown (cancer of the back) Heart Disease, Diabetes, Hypertension Physical Exam Vital Signs Vital Signs - First Documented 02/10/19 13:05 Temp 36.7 Pulse 124 Resp 15 B/P (MAP) 127/100 (109) Pulse Ox 100 O2 Delivery Room Air Capillary Refill : Height, Weight, BMI Height: 6'2.00" Weight: 268lbs. 12.8oz. 121.158814tp; 35.00 BMI Method:Stated General Appearance: No Apparent Distress, WD/WN Eyes: Bilateral Eye Normal Inspection, Bilateral Eye PERRL, Bilateral Eye EOMI HEENT: PERRL/EOMI, TMs Normal Neck: Full Range of Motion, Normal Inspection Respiratory: Normal Breath Sounds, No Accessory Muscle Use, No Respiratory Distress Cardiovascular: Tachycardia (117) Gastrointestinal: Normal Bowel Sounds, Non Tender, Soft Neurologic/Psychiatric: Alert, Oriented x3, No Motor/Sensory Deficits Skin: Normal Color, Warm/Dry Progress/Results/Core Measures Suspected Sepsis SIRS Temperature: Pulse: Respiratory Rate: Laboratory Tests 02/10/19 13:19: White Blood Count 10.6 Blood Pressure / Mean: Laboratory Tests 02/10/19 13:19: Creatinine 1.34H, Platelet Count 402H, Total Bilirubin 0.5 Results/Orders Lab Results Laboratory Tests Test 02/10/19 13:19 Range/Units White Blood Count 10.6 4.3-11.0 10^3/uL Red Blood Count 5.33 4.35-5.85 10^6/uL Hemoglobin 16.1 13.3-17.7 G/DL Hematocrit 47 40-54 % Mean Corpuscular Volume 87 80-99 FL Mean Corpuscular Hemoglobin 30 25-34 PG Mean Corpuscular Hemoglobin Concent 35 32-36 G/DL Red Cell Distribution Width 13.4 10.0-14.5 % Platelet Count 402 H 130-400 10^3/uL Mean Platelet Volume 9.1 7.4-10.4 FL Neutrophils (%) (Auto) 65 42-75 % Lymphocytes (%) (Auto) 25 12-44 % Monocytes (%) (Auto) 7 0-12 % Eosinophils (%) (Auto) 2 0-10 % Basophils (%) (Auto) 1 0-10 % Neutrophils # (Auto) 7.0 1.8-7.8 X 10^3 Lymphocytes # (Auto) 2.7 1.0-4.0 X 10^3 Monocytes # (Auto) 0.7 0.0-1.0 X 10^3 Eosinophils # (Auto) 0.2 0.0-0.3 10^3/uL Basophils # (Auto) 0.1 0.0-0.1 10^3/uL Sodium Level 137 135-145 MMOL/L Potassium Level 4.1 3.6-5.0 MMOL/L Chloride Level 109 H 98-107 MMOL/L Carbon Dioxide Level 16 L 21-32 MMOL/L Anion Gap 12 5-14 MMOL/L Blood Urea Nitrogen 17 7-18 MG/DL Creatinine 1.34 H 0.60-1.30 MG/DL Estimat Glomerular Filtration Rate 58 BUN/Creatinine Ratio 13 Glucose Level 123 H 70-105 MG/DL Calcium Level 9.7 8.5-10.1 MG/DL Corrected Calcium 8.5-10.1 MG/DL Total Bilirubin 0.5 0.1-1.0 MG/DL Aspartate Amino Transf (AST/SGOT) 19 5-34 U/L Alanine Aminotransferase (ALT/SGPT) 34 0-55 U/L Alkaline Phosphatase 115 40-136 U/L Total Protein 8.3 H 6.4-8.2 GM/DL Albumin 4.7 H 3.2-4.5 GM/DL Lipase 32 8-78 U/L My Orders Orders - RUSH HA APRN Cbc With Automated Diff (02/10/19 13:10) Comprehensive Metabolic Panel (02/10/19 13:10) Lipase (02/10/19 13:10) Ua Culture If Indicated (02/10/19 13:10) Ed Iv/Invasive Line Start (02/10/19 13:10) Lactated Ringers (Lr 1000 Ml Iv Solution (02/10/19 13:15) Ondansetron Injection (Zofran Injectio (02/10/19 13:15) Hyoscyamine Sl Tablet (Levsin Sl Tablet) (02/10/19 13:30) Lactated Ringers (Lr 1000 Ml Iv Solution (02/10/19 14:00) Medications Given in ED Current Medications Medications Dose Ordered Sig/Beena Route Start Time Stop Time Status Last Admin Dose Admin Hyoscyamine Sulfate 0.25 mg ONCE ONCE PO 02/10/19 13:30 02/10/19 13:31 DC 02/10/19 13:30 0.25 MG Ondansetron HCl 8 mg ONCE ONCE IVP 02/10/19 13:15 02/10/19 13:16 DC 02/10/19 13:29 8 MG Vital Signs/I&O 02/10/19 13:05 Temp 36.7 Pulse 124 Resp 15 B/P (MAP) 127/100 (109) Pulse Ox 100 O2 Delivery Room Air Capillary Refill : Departure Impression Primary Impression: Nausea vomiting and diarrhea Disposition: HOME, SELF-CARE Condition: Improved Departure-Patient Inst. Decision time for Depature: 13:54 Referrals: [facility] (PCP/Family) Primary Care Physician Patient Instructions: Viral Gastroenteritis, Adult (DC) Add. Discharge Instructions: 1. Return to ER for any concerns 2. Sip on clear liquids such as Pedialyte or Gatorade for the next 12 hours then you may resume a more normal diet 3. Nausea medication as directed in addition to shly-ezg-wqcxjsn Imodium to help stop the diarrhea. Scripts Ondansetron (Ondansetron Odt) 8 Mg Tab.rapdis 8 MG PO Q6H PRN for NAUSEA/VOMITING, #10 TAB Prov: RUSH HA APRN 02/10/19 Work/School Note: Work Release Form Date Seen in the Emergency Department: Feb 10, 2019 Return to Work: Feb 11, 2019 RUSH HA APRN Feb 10, 2019 13:19
[2019-02-10 13:28] LABS: BASOPHILS # (AUTO) 0.1 10^3/uL (0.0-0.1); BASOPHILS % (AUTO) 1 % (0-10); EOSINOPHILS # (AUTO) 0.2 10^3/uL (0.0-0.3); EOSINOPHILS % (AUTO) 2 % (0-10); HEMATOCRIT 47 % (40-54); HEMOGLOBIN 16.1 G/DL (13.3-17.7); LYMPHOCYTES # (AUTO) 2.7 X 10^3 (1.0-4.0); LYMPHOCYTES % (AUTO) 25 % (12-44); MEAN CORPUSCULAR HEMOGLOBIN 30 PG (25-34); MEAN CORPUSCULAR HGB CONC 35 G/DL (32-36); MEAN CORPUSCULAR VOLUME 87 FL (80-99); MEAN PLATELET VOLUME 9.1 FL (7.4-10.4); MONOCYTES # (AUTO) 0.7 X 10^3 (0.0-1.0); MONOCYTES % (AUTO) 7 % (0-12); NEUTROPHILS % (AUTO) 65 % (42-75); PLATELET COUNT 402 10^3/uL (130-400); RED CELL DISTRIBUTION WIDTH 13.4 % (10.0-14.5); WHITE BLOOD COUNT 10.6 10^3/uL (4.3-11.0)
[2019-02-10] MEDS ORDERED: HYOSCYAMINE 0.125 MG (LEVSIN) TAB PO ONE (13:30)
[2019-02-10 13:46] LABS: ALANINE AMINOTRANSFERASE 34 U/L (0-55); ALBUMIN 4.7 GM/DL (3.2-4.5); ALKALINE PHOSPHATASE 115 U/L (40-136); BILIRUBIN,TOTAL 0.5 MG/DL (0.1-1.0); BUN/CREATININE RATIO 13; CALCIUM 9.7 MG/DL (8.5-10.1); CARBON DIOXIDE 16 MMOL/L (21-32); CHLORIDE 109 MMOL/L (98-107); CREATININE SERUM 1.34 MG/DL (0.60-1.30); GFR ESTIMATED 58; GLUCOSE 123 MG/DL (70-105); LIPASE 32 U/L (8-78); POTASSIUM 4.1 MMOL/L (3.6-5.0); SODIUM 137 MMOL/L (135-145); TOTAL PROTEIN 8.3 GM/DL (6.4-8.2)
[2019-02-10] MEDS ORDERED: ONDA8TAB13 PO (13:56)
[2019-02-10 15:53] VITALS: BP 139/81
== END 2019-02-10 15:55 | disposition home or self-care (01) ==
LOC: EDUNIT# 13:02 → ER 13:04
DX: R19.7 Diarrhea, unspecified (principal); R11.2 Nausea with vomiting, unspecified; I10 Essential (primary) hypertension; G43.909 Migraine, unspecified, not intractable, without status migrainosus; F31.9 Bipolar disorder, unspecified; F60.9 Personality disorder, unspecified; Z88.8 Allergy status to other drugs, medicaments and biological substances; Z79.52 Long term (current) use of systemic steroids; Z87.891 Personal history of nicotine dependence; Z82.49 Family history of ischemic heart disease and other diseases of the circulatory system
CPT/HCPCS: 36415; 80053; 83690; 85025; 96361; 96374

== ENCOUNTER → 2019-04-04 | Outpatient (CLI) | payer MEDICAID ==
[~2019-04-04] MED LIST changes: +ONDA8TAB13 PO
--- NOTE | 2019-04-04 16:47 | Diagnostic Imaging Report ---
EXAMINATION: Lumbar spine radiographs, 2 views. COMPARISON: None. HISTORY: 43-year-old male, low back pain. FINDINGS: There is posterior spinal fusion hardware spanning L4 through S1. There is disc spacer material at L4-L5 and L5-S1. The hardware appears intact. There is mild disc height loss at L3-L4. There are mild endplate degenerative changes of the thoracolumbar spine. There is no identified compression deformity. The sacroiliac joints appear grossly unremarkable in appearance. IMPRESSION: 1. Posterior spinal fusion hardware spanning L4 through S1 without apparent complication. 2. Mild disc degenerative changes of the thoracolumbar spine. Dictated by: Dictated on workstation # [id number]
== END ==
LOC: RAD 13:47
PROVIDERS: ATTEND Neurological Surgery
DX: M47.815 Spondylosis without myelopathy or radiculopathy, thoracolumbar region (principal); Z98.1 Arthrodesis status
CPT/HCPCS: 72100

== ENCOUNTER 2019-04-09 13:52 | Emergency (ER) | payer MEDICAID ==
[~2019-04-09] VITALS: Ht 185 cm; Wt 131.7 kg
--- NOTE | 2019-04-09 14:46 | NUR ---
AMB TO ROOM NO CHANGE FROM TRIAGE.
--- NOTE | 2019-04-09 14:57 | ED Abdominal Pain ---
General Chief Complaint: Abdominal/GI Problems Stated Complaint: VOMITING Nursing Triage Note: Patient ambulatory to [facility] with complaint of left lower quadrant abdominal pain with nausea, vomiting and diarrhea x 1 week. Patient also complains of a cough x 1 week. He states he was seen at [facility] earlier last week and given fluids and Zofran. Today he went back to the clinic because he is not improving and was sent to ER. Sepsis Screen: No Definite Risk Source of Information: Patient Exam Limitations: No Limitations History of Present Illness Date Seen by Provider: Apr 09, 2019 Time Seen by Provider: 14:55 Initial Comments 43-year-old male who was sent to the emergency room by [facility] today for complaints of nausea, vomiting, diarrhea for the past week and left lower quadrant abdominal pain that started a few days ago. Patient reports he has not been able to keep any food or fluids down and has had decreased urinary output over the past 2 days. He reports that he has not been able to take his daily medications as prescribed due to his nausea and vomiting. He is not nauseated on arrival to the emergency room but is complaining of left lower quadrant abdominal pain is tender to palpation. Timing/Duration: 1 Week Location: [facility] Radiation: No Radiation Associated Symptoms: No Fever/Chills; Nausea/Vomiting Allergies and Home Medications Allergies Coded Allergies: strawberry (Unverified Allergy, Intermediate, ANAPHYLAXIS, 05/11/18) FROM UNCODED ALLERGIES levetiracetam (Verified Allergy, Unknown, Rash, 02/10/19) Home Medications Albuterol Sulfate 1 Puff Puff, 2 PUFF IH Q4H 1 PUFF = 90 MCG Prescribed by: HAILEY SINGER on 05/11/18 1308 Gabapentin 400 Mg Capsule, 800 MG PO BID, (Reported) TAKES 2 (400MG) CAPSULES Lisinopril 20 Mg Tablet, 20 MG PO DAILY, (Reported) Ondansetron 4 Mg Tab.rapdis, 4 MG PO Q6H PRN for NAUSEA/VOMITING Prescribed by: HENRY MILLER on 05/01/18 1407 Ondansetron 8 Mg Tab.rapdis, 8 MG PO Q6H PRN for NAUSEA/VOMITING Prescribed by: RUSH HA on 02/10/19 1356 Propranolol HCl 40 Mg Tablet, 40 MG PO BID, (Reported) Patient Home Medication List Home Medication List Reviewed: Yes Review of Systems Review of Systems Constitutional: see HPI; No chills, No diaphoresis, No fever Gastrointestinal: See HPI, Abdominal Pain, Diarrhea, Nausea, Vomiting All Other Systems Reviewed Negative Unless Noted: Yes Past Rviukzs-Vpljuo-Ipwbte Hx Past Med/Social Hx: Reviewed Nursing Past Med/Soc Hx Patient Social History Alcohol Use: Denies Use Recreational Drug Use: No Drug of Choice: reports past hx Smoking Status: Former Smoker Type Used: Cigarettes Former Smoker, Quit: June 21, 2006 2nd Hand Smoke Exposure: No Recent Foreign Travel: No Contact w/Someone Who Travel: No Recent Infectious Disease Expo: No Recent Hopitalizations: No Immunizations Up To Date Tetanus Booster (TDap): Unknown PED Vaccines UTD: Yes Seasonal Allergies Seasonal Allergies: No Past Medical History Surgeries: Yes (R EYE, surgery for facial trauma, BACK) Respiratory: No Currently Using CPAP: No Currently Using BIPAP: No Cardiac: Yes Hypertension Neurological: Yes Headaches /Migraines, Seizure Disorder Sexually Transmitted Disease: No HIV/AIDS: No Genitourinary: No Gastrointestinal: No Musculoskeletal: Yes Chronic Back Pain Endocrine: No HEENT: Yes (RIGHT EYE) Eye Injury Cancer: No Psychosocial: Yes (Anger Disorder) Bipolar, Personality Disorder Integumentary: No Blood Disorders: No Adverse Reaction/Blood Tranf: No Family Medical History Reviewed Nursing Family Hx Arthritis 19 MOTHER, Onset:Unknown Asthma G8 SISTER, Onset:Childhood Diabetes mellitus 19 FATHER, Onset:Unknown Headache disorder Hypertension 19 FATHER, Onset:Unknown Neoplasm 19 MOTHER, Onset:Unknown (cancer of the back) Heart Disease, Diabetes, Hypertension Physical Exam Vital Signs Vital Signs - First Documented 04/09/19 13:56 Temp 36.8 Pulse 100 Resp 16 B/P (MAP) 148/111 (123) Pulse Ox 98 O2 Delivery Room Air Capillary Refill : Less Than 3 Seconds Height/Weight/BMI Height: 6'2.00" Weight: 268lbs. 12.8oz. 121.654677ng; 38.00 BMI Method:Stated General Appearance: WD/WN, no apparent distress Respiratory: chest non-tender, lungs clear, normal breath sounds, no respiratory distress, no accessory muscle use Cardiovascular: normal peripheral pulses, regular rate, rhythm, no edema, no gallop, no JVD, no murmur Gastrointestinal: normal bowel sounds, soft, no organomegaly, no pulsatile mass, tenderness (left lower quadrant tenderness) Extremities: normal capillary refill Neurologic/Psychiatric: alert, normal mood/affect, oriented x 3 Skin: normal color, warm/dry Progress/Results/Core Measures Results/Orders Lab Results Laboratory Tests Test 04/09/19 14:53 04/09/19 16:17 Range/Units White Blood Count 8.2 4.3-11.0 10^3/uL Red Blood Count 5.20 4.35-5.85 10^6/uL Hemoglobin 15.6 13.3-17.7 G/DL Hematocrit 45 40-54 % Mean Corpuscular Volume 86 80-99 FL Mean Corpuscular Hemoglobin 30 25-34 PG Mean Corpuscular Hemoglobin Concent 35 32-36 G/DL Red Cell Distribution Width 13.3 10.0-14.5 % Platelet Count 334 130-400 10^3/uL Mean Platelet Volume 9.1 7.4-10.4 FL Neutrophils (%) (Auto) 59 42-75 % Lymphocytes (%) (Auto) 32 12-44 % Monocytes (%) (Auto) 8 0-12 % Eosinophils (%) (Auto) 1 0-10 % Basophils (%) (Auto) 1 0-10 % Neutrophils # (Auto) 4.8 1.8-7.8 X 10^3 Lymphocytes # (Auto) 2.6 1.0-4.0 X 10^3 Monocytes # (Auto) 0.7 0.0-1.0 X 10^3 Eosinophils # (Auto) 0.1 0.0-0.3 10^3/uL Basophils # (Auto) 0.1 0.0-0.1 10^3/uL Sodium Level 139 135-145 MMOL/L Potassium Level 4.2 3.6-5.0 MMOL/L Chloride Level 107 98-107 MMOL/L Carbon Dioxide Level 22 21-32 MMOL/L Anion Gap 10 5-14 MMOL/L Blood Urea Nitrogen 15 7-18 MG/DL Creatinine 1.05 0.60-1.30 MG/DL Estimat Glomerular Filtration Rate > 60 BUN/Creatinine Ratio 14 Glucose Level 108 H 70-105 MG/DL Calcium Level 9.3 8.5-10.1 MG/DL Corrected Calcium 9.0 8.5-10.1 MG/DL Total Bilirubin 1.0 0.1-1.0 MG/DL Aspartate Amino Transf (AST/SGOT) 22 5-34 U/L Alanine Aminotransferase (ALT/SGPT) 32 0-55 U/L Alkaline Phosphatase 97 40-136 U/L Total Protein 7.6 6.4-8.2 GM/DL Albumin 4.4 3.2-4.5 GM/DL Amylase Level 49 25-125 U/L Lipase 19 8-78 U/L Urine Color DARK YELLOW Urine Clarity CLEAR Urine pH 6.5 5-9 Urine Specific [place] 1.025 H 1.016-1.022 Urine Protein NEGATIVE NEGATIVE Urine Glucose (UA) NEGATIVE NEGATIVE Urine Ketones NEGATIVE NEGATIVE Urine Nitrite NEGATIVE NEGATIVE Urine Bilirubin NEGATIVE NEGATIVE Urine Urobilinogen 1.0 < = 1.0 MG/DL Urine Leukocyte Esterase NEGATIVE NEGATIVE Urine RBC (Auto) NEGATIVE NEGATIVE Urine RBC NONE /HPF Urine WBC RARE /HPF Urine Crystals NONE /LPF Urine Bacteria TRACE /HPF Urine Casts PRESENT /LPF Urine Hyaline Casts 5-10 H /LPF Urine Mucus SMALL H /LPF Urine Culture Indicated NO Urine Opiates Screen NEGATIVE NEGATIVE Urine Oxycodone Screen NEGATIVE NEGATIVE Urine Methadone Screen NEGATIVE NEGATIVE Urine Propoxyphene Screen NEGATIVE NEGATIVE Urine Barbiturates Screen NEGATIVE NEGATIVE Ur Tricyclic Antidepressants Screen NEGATIVE NEGATIVE Urine Phencyclidine Screen NEGATIVE NEGATIVE Urine Amphetamines Screen POSITIVE H NEGATIVE Urine Methamphetamines Screen POSITIVE H NEGATIVE Urine Benzodiazepines Screen NEGATIVE NEGATIVE Urine Cocaine Screen NEGATIVE NEGATIVE Urine Cannabinoids Screen NEGATIVE NEGATIVE My Orders Orders - FILOMENA YU Comprehensive Metabolic Panel (04/09/19 13:57) Lipase (04/09/19 13:57) Amylase (04/09/19 13:57) Ua Culture If Indicated (04/09/19 13:57) Ed Iv/Invasive Line Start (04/09/19 13:57) Cbc With Automated Diff (04/09/19 13:57) Conrad Level (04/09/19 14:53) Ns Iv 1000 Ml (Sodium Chloride 0.9%) (04/09/19 15:00) Drug Screen Stat (Urine) (04/09/19 14:58) Ct Abdomen/Pelvis Wo (04/09/19 16:11) Vital Signs/I&O 04/09/19 13:56 Temp 36.8 Pulse 100 Resp 16 B/P (MAP) 148/111 (123) Pulse Ox 98 O2 Delivery Room Air Blood Pressure Mean: 123 Departure Impression Primary Impression: Nausea and vomiting Additional Impression: Methamphetamine use Disposition: HOME, SELF-CARE Condition: Stable/Unchanged Departure-Patient Inst. Decision time for Depature: 17:14 Referrals: [facility] (PCP/Family) Primary Care Physician Patient Instructions: Nausea and Vomiting, Adult (DC) Add. Discharge Instructions: Take medications as directed. Follow-up with your primary care provider within 1 week for recheck. Return back to the emergency room for worsening symptoms or concerns as needed. All discharge instructions reviewed with patient and/or family. Voiced understanding. Scripts Promethazine HCl (Promethazine Tablet) 25 Mg Tablet 25 MG PO Q6H PRN for NAUSEA/VOMITING, #20 TAB Prov: FILOMENA YU 04/09/19 FILOMENA YU Apr 09, 2019 14:57
[2019-04-09 15:00] LABS: BASOPHILS # (AUTO) 0.1 10^3/uL (0.0-0.1); BASOPHILS % (AUTO) 1 % (0-10); EOSINOPHILS # (AUTO) 0.1 10^3/uL (0.0-0.3); EOSINOPHILS % (AUTO) 1 % (0-10); HEMATOCRIT 45 % (40-54); HEMOGLOBIN 15.6 G/DL (13.3-17.7); LYMPHOCYTES # (AUTO) 2.6 X 10^3 (1.0-4.0); LYMPHOCYTES % (AUTO) 32 % (12-44); MEAN CORPUSCULAR HEMOGLOBIN 30 PG (25-34); MEAN CORPUSCULAR HGB CONC 35 G/DL (32-36); MEAN CORPUSCULAR VOLUME 86 FL (80-99); MEAN PLATELET VOLUME 9.1 FL (7.4-10.4); MONOCYTES # (AUTO) 0.7 X 10^3 (0.0-1.0); MONOCYTES % (AUTO) 8 % (0-12); NEUTROPHILS # (AUTO) 4.8 X 10^3 (1.8-7.8); NEUTROPHILS % (AUTO) 59 % (42-75); PLATELET COUNT 334 10^3/uL (130-400); RED CELL DISTRIBUTION WIDTH 13.3 % (10.0-14.5); WHITE BLOOD COUNT 8.2 10^3/uL (4.3-11.0)
[2019-04-09] MEDS ORDERED: NS IV 1000 ML 1,000 ML IV SCH (15:00)
--- NOTE | 2019-04-09 15:07 | NUR ---
TO BATHROOM UNABLE TO GIVE UA AT THIS TIME.
[2019-04-09 15:19] LABS: ALANINE AMINOTRANSFERASE 32 U/L (0-55); ALBUMIN 4.4 GM/DL (3.2-4.5); ALKALINE PHOSPHATASE 97 U/L (40-136); AMYLASE 49 U/L (25-125); BUN/CREATININE RATIO 14; CALCIUM 9.3 MG/DL (8.5-10.1); CARBON DIOXIDE 22 MMOL/L (21-32); CHLORIDE 107 MMOL/L (98-107); CREATININE SERUM 1.05 MG/DL (0.60-1.30); GFR ESTIMATED > 60; GLUCOSE 108 MG/DL (70-105); LIPASE 19 U/L (8-78); POTASSIUM 4.2 MMOL/L (3.6-5.0); SODIUM 139 MMOL/L (135-145); TOTAL PROTEIN 7.6 GM/DL (6.4-8.2)
--- NOTE | 2019-04-09 15:42 | NUR ---
TO ROOM FLUIDS INFUSING NO VOMITING OR DIARRHEA NOTED STILL UNABLE TO URINATE.
--- NOTE | 2019-04-09 16:21 | NUR ---
AMB TO BATHROOM UA OBTAINED VODIED 350 CC
[2019-04-09 16:24] LABS: BILIRUBIN,URINE NEGATIVE (NEGATIVE); CLARITY,URINE CLEAR; COLOR,URINE DARK YELLOW; GLUCOSE, URINE (UA) NEGATIVE (NEGATIVE); KETONES,URINE NEGATIVE (NEGATIVE); LEUKOCYTE ESTERASE ,URINE NEGATIVE (NEGATIVE); NITRITE,URINE NEGATIVE (NEGATIVE); PH,URINE 6.5 (5-9); PROTEIN,URINE NEGATIVE (NEGATIVE)
[2019-04-09 16:33] LABS: BACTERIA,URINE TRACE /HPF; WBC,URINE RARE /HPF
[2019-04-09 16:37] LABS: AMPHETAMINE SCREEN, URINE POSITIVE (NEGATIVE); BARBITURATE SCREEN URINE NEGATIVE (NEGATIVE); BENZODIAZEPINES SCREEN URINE NEGATIVE (NEGATIVE); CANNABINOID SCREEN, URINE NEGATIVE (NEGATIVE); COCAINE SCREEN URINE NEGATIVE (NEGATIVE); METHADONE STAT NEGATIVE (NEGATIVE); METHAMPHETAMINE SCREEN URINE S POSITIVE (NEGATIVE); OPIATE SCREEN URINE NEGATIVE (NEGATIVE); OXYCODONE STAT NEGATIVE (NEGATIVE); PROPOXYPHENE STAT NEGATIVE (NEGATIVE); TRICYCLIC ANTIDEPRESSANTS SCRE NEGATIVE (NEGATIVE)
--- NOTE | 2019-04-09 16:55 | Diagnostic Imaging Report ---
PROCEDURE: CT abdomen and pelvis without contrast. TECHNIQUE: Multiple contiguous axial images were obtained through the abdomen and pelvis without the use of intravenous contrast. Auto Exposure Controls were utilized during the CT exam to meet ALARA standards for radiation dose reduction. INDICATION: Left lower quadrant abdominal pain with nausea, emesis, and diarrhea. FINDINGS: There is low-density throughout the liver indicating steatosis. No focal hepatic, gallbladder, pancreatic, adrenal gland, or splenic lesion is identified. Evaluation of the kidneys is somewhat limited without intravenous contrast; however, there is no evidence of hydronephrosis or renal mass. No renal stone is identified. There is no evidence of appendiceal inflammation. There is no evidence of organized fluid collection. No bladder stone is identified. Surgical changes are seen in the lower lumbar spine with previous L4-L5 and L5-S1 discectomy. IMPRESSION: No acute abnormality is detected. Dictated by: Dictated on workstation # [id number]
[2019-04-09] MEDS ORDERED: PROM25TA14 PO (17:15)
[2019-04-09 17:30] VITALS: BP 164/100
== END 2019-04-09 17:30 | disposition home or self-care (01) ==
LOC: EDUNIT# 13:52 → ER 13:56
DX: R11.2 Nausea with vomiting, unspecified (principal); F15.90 Other stimulant use, unspecified, uncomplicated; I10 Essential (primary) hypertension; G40.909 Epilepsy, unspecified, not intractable, without status epilepticus; Z88.8 Allergy status to other drugs, medicaments and biological substances; Z87.891 Personal history of nicotine dependence; Z82.49 Family history of ischemic heart disease and other diseases of the circulatory system; Z80.8 Family history of malignant neoplasm of other organs or systems
CPT/HCPCS: 36415; 74176; 80053; 80178; 80306; 81000; 82150; 83690; 85025; 96360

== ENCOUNTER → 2019-07-29 | Outpatient (CLI) | payer MEDICAID ==
[~2019-07-29] MED LIST changes: +PROM25TA14 PO
--- NOTE | 2019-07-29 11:51 | Diagnostic Imaging Report ---
CLINICAL INDICATIONS: Patient with lumbar fusion approximately 7 months ago. Patient still having pain and problems radiating down right leg intermittently. EXAM: X-ray lumbar spine, AP and lateral views. COMPARISON: X-ray lumbar spine dated 04/04/2019. FINDINGS: There is no interval acute lumbar spine fracture or dislocation. There is stable appearance of the L4-S1 posterior lumbar bony fusion with no gross hardware complication such as osteolysis or hardware fracture. There is progression of intervertebral calcification in the interim. The remainder of the lumbar spine is stable with degenerative disease. There are small spurs involving lumbar spine. There is mild loss of disk space height at the L2-L3 and L3-L4 levels. Stable chronic compression deformity/was noted involving the L3 vertebra. There is sclerosis of the sacroiliac joints bilaterally. IMPRESSION: 1.: Again seen L4-S1 posterior lumbar interbody fusion with no gross interval hardware complications. 2: There is no acute fracture or dislocation. 3: There is no significant change to the lumbar spine degenerative disease. Dictated by: Dictated on workstation # [id number]
== END ==
LOC: RAD 11:02
PROVIDERS: ATTEND Neurological Surgery
DX: M47.816 Spondylosis without myelopathy or radiculopathy, lumbar region (principal); Z98.1 Arthrodesis status
CPT/HCPCS: 72100

== ENCOUNTER → 2019-07-31 | Outpatient (CLI) | payer MEDICAID ==
--- NOTE | 2019-07-31 12:20 | Diagnostic Imaging Report ---
INDICATION: Back surgery, follow-up. TIME OF EXAM: 11:11 a.m. COMPARISON: Correlation is made with prior study 07/29/2019. FINDINGS: Flexion and extension lateral views of lumbar spine were obtained. There are postoperative changes of posterior instrumented fusion with posterior stabilization rods and pedicle screws extending from L4 through S1. Vertebral body heights are maintained. No definite abnormal motion during flexion or extension maneuvers is identified. Hardware is intact. No fractures are seen. IMPRESSION: Posterior image minute fusion L4-S1. No abnormal motion during flexion or extension maneuvers is identified. Dictated by: Dictated on workstation # [id number]
== END ==
LOC: RAD 10:41
PROVIDERS: ATTEND Nurse Practitioner Family
DX: Z09 Encounter for follow-up examination after completed treatment for conditions other than malignant neoplasm (principal); Z98.1 Arthrodesis status
CPT/HCPCS: 72100

== ENCOUNTER 2020-09-21 08:58 | Emergency (ER) | payer MEDICAID ==
[~2020-09-21] VITALS: Ht 188 cm; Wt 122.5 kg
[~2020-09-21 08:58] MED LIST changes: -SULF1TAB35 PO; +SULF1TAB38 PO
--- NOTE | 2020-09-21 10:11 | ED General ---
General Chief Complaint: Cough/Cold/Flu Symptoms Stated Complaint: COUGH/FEVER Nursing Triage Note: PT AMB TO RM 10 W C/O COUGH, BODY ACHES, SORE THROAT, VOMITING, AND GENERALIZED WEAKNESS X3 DAYS. PT DENIES N/V AT THIS MOMENT. History of Present Illness Date Seen by Provider: Sep 21, 2020 Time Seen by Provider: 09:25 Initial Comments Patient is a 45-year-old male who presents to the emergency department today with a chief complaint of severe persistent cough, body aches Timing/Duration: 3-4 Days Severity: Moderate Associated Systoms: Malaise, Nausea/Vomiting Allergies and Home Medications Allergies Coded Allergies: strawberry (Unverified Allergy, Intermediate, ANAPHYLAXIS, 05/11/18) FROM UNCODED ALLERGIES levetiracetam (Verified Allergy, Unknown, Rash, 02/10/19) Home Medications Albuterol Sulfate 1 Puff Puff, 2 PUFF IH Q4H 1 PUFF = 90 MCG Prescribed by: HAILEY SINGER on 05/11/18 1308 Gabapentin 400 Mg Capsule, 800 MG PO BID, (Reported) TAKES 2 (400MG) CAPSULES Lisinopril 20 Mg Tablet, 20 MG PO DAILY, (Reported) Ondansetron 4 Mg Tab.rapdis, 4 MG PO Q6H PRN for NAUSEA/VOMITING Prescribed by: HENRY MILLER on 05/01/18 1407 Ondansetron 8 Mg Tab.rapdis, 8 MG PO Q6H PRN for NAUSEA/VOMITING Prescribed by: RUSH HA on 02/10/19 1356 Promethazine HCl 25 Mg Tablet, 25 MG PO Q6H PRN for NAUSEA/VOMITING Prescribed by: FILOMENA YU on 04/09/19 1715 Propranolol HCl 40 Mg Tablet, 40 MG PO BID, (Reported) Patient Home Medication List Home Medication List Reviewed: Yes Review of Systems Review of Systems Constitutional: see HPI EENTM: nose congestion Respiratory: cough Cardiovascular: no symptoms reported Gastrointestinal: nausea Genitourinary: no symptoms reported Musculoskeletal: muscle cramps Skin: no symptoms reported All Other Systems Reviewed Negative Unless Noted: Yes Past Smvyqos-Pfvlop-Aygqnd Hx Patient Social History Tobacco Use?: No Smoking Status: Former Smoker Substance use?: No Alcohol Use?: No Pt feels they are or have been: No Immunizations Up To Date Tetanus Booster (TDap): Unknown PED Vaccines UTD: Yes Seasonal Allergies Seasonal Allergies: No Past Medical History Surgeries: Yes (R EYE, surgery for facial trauma, BACK) Respiratory: No Currently Using CPAP: No Currently Using BIPAP: No Cardiac: Yes Hypertension Neurological: Yes Headaches /Migraines, Seizure Disorder Sexually Transmitted Disease: No HIV/AIDS: No Genitourinary: No Gastrointestinal: No Musculoskeletal: Yes Chronic Back Pain Endocrine: No HEENT: Yes (RIGHT EYE) Eye Injury Cancer: No Psychosocial: Yes (Anger Disorder) Bipolar, Personality Disorder Integumentary: No Blood Disorders: No Adverse Reaction/Blood Tranf: No Family Medical History Arthritis 19 MOTHER, Onset:Unknown Asthma G8 SISTER, Onset:Childhood Diabetes mellitus 19 FATHER, Onset:Unknown Headache disorder Hypertension 19 FATHER, Onset:Unknown Neoplasm 19 MOTHER, Onset:Unknown (cancer of the back) Heart Disease, Diabetes, Hypertension Physical Exam Vital Signs Vital Signs - First Documented Capillary Refill : NONE Height, Weight, BMI Height: 6'2.00" Weight: 268lbs. 12.8oz. 121.502505dx; 34.00 BMI Method:Stated General Appearance: No Apparent Distress, WD/WN HEENT: PERRL/EOMI, TMs Normal Neck: Normal Inspection Respiratory: Lungs Clear, Normal Breath Sounds, No Accessory Muscle Use, No Respiratory Distress Cardiovascular: Regular Rate, Rhythm Gastrointestinal: Non Tender, Soft Extremity: Normal Capillary Refill, Normal Inspection, Normal Range of Motion, Non Tender, No Calf Tenderness Neurologic/Psychiatric: Alert, Oriented x3, No Motor/Sensory Deficits, Normal Mood/Affect Skin: Normal Color, Warm/Dry Progress/Results/Core Measures Suspected Sepsis SIRS Temperature: Pulse: 83 Respiratory Rate: 20 Blood Pressure 126 /102 Mean: 110 Results/Orders Lab Results Laboratory Tests Test 09/21/20 09:10 09/21/20 10:27 Range/Units SARS-CoV-2 RNA (RT-PCR) Detected H Not Detecte Glucometer 125 H 70-110 MG/DL My Orders Orders - NIRAV URIBE MD Covid 19 Inhouse Test (09/21/20 09:08) Accucheck Stat ONCE (09/21/20 09:47) Vital Signs/I&O 09/21/20 09/21/20 09/21/20 09:06 09:06 11:45 Temp 37.8 Pulse 83 77 Resp 20 18 B/P (MAP) 126/102 (110) 133/88 Pulse Ox 99 97 O2 Delivery Room Air Room Air Room Air Capillary Refill : NONE Blood Pressure Mean: 110 Progress Note : Time: 10:34 Progress Note Patient is Covid positive. I discussed monoclonal antibody infusion with the patient I discussed risks and benefits including allergy to the medication possible worsening of his Covid symptoms in spite of infusion. He verbalizes understanding and wishes to proceed. Patient has a history of hypertension. He is not older than 55 but I believe that his hypertension puts him at a little bit of increased risk. He is a little bit overweight. We will go ahead and order this as he is only 4 to 5 days into his diagnosis. He is not hypoxic. He is not tachycardic and has a normal blood pressure. I am not concerned for sep sis in this Covid positive patient. Patient does not have any clinical or objective findings to warrant further studies in the emergency department. Departure Impression Primary Impression: COVID-19 Disposition: 01 HOME, SELF-CARE Condition: Stable Departure-Patient Inst. Decision time for Depature: 11:15 Referrals: [facility] [place] Primary Care Physician ERIKA ANDREWS MD (Family) Primary Care Physician Patient Instructions: COVID-19 Overview Add. Discharge Instructions: Drink plenty of fluids to stay well-hydrated. Use [id number] Tylenol or ibuprofen for body aches. I have ordered you the monoclonal antibody infusion for COVID-19. you will be contacted regarding this infusion. Come back to the emergency room if you have any worsening symptoms of shortness of breath, lightheadedness dizziness, chest pain or any other emergent concerning symptoms. NIRAV URIBE MD Sep 21, 2020 10:11
[2020-09-21 11:45] VITALS: BP 133/88
== END 2020-09-21 11:45 | disposition home or self-care (01) ==
LOC: EDUNIT# 08:58 → ER 09:00
DX: U07.1 COVID-19 (principal); I10 Essential (primary) hypertension; G40.909 Epilepsy, unspecified, not intractable, without status epilepticus; Z87.891 Personal history of nicotine dependence; Z79.899 Other long term (current) drug therapy
CPT/HCPCS: 82947; 87636